=== PATIENT | male | born 1955 | race Hispanic/Latino ===

== ENCOUNTER 2017-04-13 10:20 | Day surgery (SDC) | payer OTHER ==
[2017-04-13] MEDS ORDERED: DiphenhydrAMINE 50 mg/ml Inj ONE (10:57)
[2017-04-13 10:59] VITALS: BMI 32.5
[2017-04-13] MEDS ORDERED: Midazolam 2 MG/2 ML VIAL ONE (11:56)
[2017-04-13] MEDS ORDERED: Iohexol 350mg/ml 100 ML ONE (11:57)
--- NOTE | 2017-04-13 12:39 | CARDCATH ---
PROCEDURE DATE: LEFT HEART CATHETERIZATION INDICATIONS: The patient is a 61 years old white male, who presented to [facility] with suicidal attempt and the patient was noted to have persistent anterolateral ischemic ST-T wave changes. The patient had no chest pain. Because of the overall medical and psychiatric condition, cardiac catheterization was recommended after psychiatry clearance. The patient was cleared by psychiatrist. The patient was transferred to [facility] for cardiac catheterization. The procedure and its risks were fully explained to the patient who understood and agreed for the procedure. PROCEDURE: Left and right coronary angiography was performed with 6-Mohawk JL4 and JR4 diagnostic catheters. Left ventriculogram and aortogram were performed with 6-Mohawk pigtail catheter. The patient tolerated the procedure well without any complications. ANGIOGRAPHIC FINDINGS: Selective injection of the left coronary artery revealed left main to be a normal vessel. Left main bifurcated into medium-sized LAD and medium-sized circumflex artery. Other than 50% stenosis of the first septal security installer,the rest of the left coronary circulation was angiographically unremarkable. Selective injection of right coronary artery revealed a large dominant vessel that was angiographically unremarkable. Left ventriculogram performed in the OWEN projection revealed normal wall motion, ejection fraction estimated at 55%. Aortography performed in the MAORI projection revealed mild dilated aortic root. There was no aortic insufficiency or dissection. CONCLUSION: 50% stenosis of the ostium of the first septal security installer, otherwise normal coronary circulation. Normal ejection fraction. RECOMMENDATIONS: No further cardiac workup is recommended; however, the patient should be maintained on aspirin and beta pam therapy as well as statin therapy. Juan Antonio Urbina MD
[2017-04-16 15:09] VITALS: RESP 15; O2SAT 97
== END 2017-04-13 16:18 | disposition short-term general hospital (02) ==
LOC: C.CATHLAB 10:20
PROVIDERS: ATTEND Specialist
DX: I25.9 Chronic ischemic heart disease, unspecified (principal); I35.0 Nonrheumatic aortic (valve) stenosis
CPT/HCPCS: J1200; J1644; J2250; J2930; Q9967

== ENCOUNTER 2018-05-03 03:01 | Inpatient (IN) | payer MEDICARE, BC ==
[2018-05-03 03:02] VITALS: BMI 28.5
--- NOTE | 2018-05-03 03:18 | C.PDOC ---
History Of Present Illness 62 year old male with PMHx of alcohol abuse presents to the ED for evaluation. Patient states he drinks 2-3 liters of vodka, his last drink was a couple of hours. Patient states he feels shaky. Patient hyperventilating and feeling an xious. Patient denies SI/HI, hallucinations, SOB, CP, nausea, vomit, injury, fall, trauma. Time Seen by Provider: 05/03/18 03:18 Chief Complaint (Nursing): Anxiety History Per: Patient History/Exam Limitations: intoxication Onset/Duration Of Symptoms: Days Current Symptoms Are (Timing): Still Present Suicide/Self Injury Attempted (Context): None Modifying Factor(s): Alcohol Associated Symptoms: Anxiety. denies: Depression, Suicidal Thoughts, Suicidal Plan Recent travel outside of the [place]: No Additional History Per: Patient Past Medical History Reviewed: Historical Data, Nursing Documentation, Vital Signs - Medical History PMH: Anxiety, CVA, Depression, Diabetes, HTN, Hypothyroidism, Pancreatitis, Chronic Kidney Disease (Non dialysis), Seizures Denies: Hepatitis, HIV, Sexually Transmitted Disease Surgical History: No Surg Hx - [facility] GROUP PSYCHOTHERAPY (07/20/17) INDIV PSYCHOTHERAPY FOR SUBSTANCE ABUSE, COGNITIV BEHAVIORAL (07/20/17) INDIVIDUAL PSYCHOTHERAPY, COGNITIVE-BEHAVIORAL (07/20/17) INTRODUCTION OF SERUM/TOX/VACCINE INTO MUSCLE, PERC APPROACH (04/10/17) MEASURE OF CARDIAC SAMPL & PRESSURE, L HEART, PERC APPROACH (04/10/17) MEDICATION MANAGEMENT (10/04/17) PLAIN RADIOGRAPHY OF RIGHT AND LEFT HEART USING OTH CONTRAST (04/10/17) Family History: States: Unknown Family Hx - Social History Hx Alcohol Use: No Hx Substance Use: No - Immunization History Hx Tetanus Toxoid Vaccination: Yes Hx Influenza Vaccination: Yes Hx Pneumococcal Vaccination: Yes Review Of Systems Constitutional: Negative for: Fever, Chills Cardiovascular: Negative for: Chest Pain, Palpitations Respiratory: Negative for: Shortness of Breath Gastrointestinal: Negative for: Nausea, Vomiting, Abdominal Pain Genitourinary: Negative for: Dysuria Musculoskeletal: Negative for: Back Pain Skin: Negative for: Lesions Psych: Positive for: Anxiety (extreme). Negative for: Depression, Suicidal ideation Physical Exam - Physical Exam Appears: Non-toxic, Other (anxious) Skin: Warm, Dry Head: Normacephalic Eye(s): bilateral: Normal Inspection Neck: Supple Chest: Symmetrical Cardiovascular: Rhythm Regular Respiratory: No Rales, No Rhonchi, No Wheezing Gastrointestinal/Abdominal: Soft, Tenderness (mild), No Guarding, No Rebound Extremity: Bilateral: Atraumatic, Normal Color And Temperature, Normal ROM Neurological/Psych: Oriented x3, Normal Speech, Normal Cognition Gait: Steady ED Course And Treatment - Laboratory Results Result Diagrams: 05/03/18 06:10 05/03/18 06:10 O2 Sat by Pulse Oximetry: 96 (ON RA) Pulse Ox Interpretation: Normal Progress Note: Plan: - Labs. - Librium 100 mg PO. - IV fluids. - Zofran 4 mg IVP. - UA. did r femoral stick in order to obtain bloods. Pt tolerated the procedure well Disposition Counseled Patient/Family Regarding: Studies Performed, Diagnosis - Disposition Disposition Time: 03:18 Condition: FAIR Forms: [facility] (Macanese) - Clinical Impression Clinical Impression: Anxiety, Alcohol abuse with intoxication - Scribe Statement The provider has reviewed the documentation as recorded by the Scribe Leonard Dennis All medical record entries made by the Scribe were at my direction and personally dictated by me. I have reviewed the chart and agree that the record accurately reflects my personal performance of the history, physical exam, medical decision making, and the department course for this patient. I have also personally directed, reviewed, and agree with the discharge instructions and disposition. Physician Patient Turnover Patient Signed Over To: Elisa Veliz Handoff Comments: pending labs , re-eval and dispo
[2018-05-03] MEDS ORDERED: Sodium Chloride 0.9% 1,000 ML IV ONE (03:21)
[2018-05-03] MEDS ORDERED: Sodium Chloride 0.9% 1,000 ML ONE (03:52)
[2018-05-03 06:13] LABS: BASO # 0.1 K/uL (0.0-0.2); BASO % 1.2 % (0.0-2.0); EOS % 0.1 % (0.0-4.0); HEMOGLOBIN 13.1 g/dL (12.0-18.0); LYMPH # 0.6 K/uL (1.0-4.3); LYMPH % 7.4 % (20.0-40.0); MEAN CELL VOLUME 105.8 fL (80.0-94.0); MEAN CORPUSCULAR HEMOGLOBIN 36.4 pg (27.0-31.0); MEAN CORPUSCULAR HGB CONC 34.4 g/dL (33.0-37.0); MEAN PLATELET VOLUME 7.1 fL (7.2-11.7); MONO # 0.7 K/uL (0.0-0.8); NEUT # 7.3 K/uL (1.8-7.0); NEUT % 83.3 % (50.0-75.0); PLATELET COUNT 397 K/uL (130-400); RBC 3.61 Mil/uL (4.40-5.90); RED CELL DISTRIBUTION WIDTH 14.5 % (11.5-14.5); WHITE BLOOD COUNT 8.8 K/uL (4.8-10.8)
[2018-05-03 06:35] LABS: ALB/GLOB RATIO 1.4 (1.0-2.1); ALBUMIN 4.5 g/dL (3.5-5.0); ALT/SGPT 33 U/L (21-72); AST/SGOT 103 U/L (17-59); BLOOD UREA NITROGEN 3 mg/dL (9-20); CALCIUM 8.6 mg/dl (8.6-10.4); GFR NON-AFRICAN AMERICAN > 60
[2018-05-03] MEDS ORDERED: Potassium Chloride 10 mEq ER Tab PO STA ×2 (06:36→09:34)
[2018-05-03] MEDS ORDERED: Magnesium Sulfate 1 gm in D5W 1 GM/100 ML BAG IVPB ONE ×2 (06:36→06:40)
[2018-05-03] MEDS ORDERED: Potassium Chloride 20 mEq ER Tab PO ONE (06:41)
[2018-05-03 06:53] LABS: BANDS 3 % (0-2); LYMPHOCYTE 5 % (20-40); MONOCYTE 10 % (0-10); NEUTROPHIL 82 % (50-75); PLATELET ESTIMATE NORMAL (NORMAL); TOTAL CELLS COUNTED 100
[2018-05-03 08:45] LABS: SQUAMOUS EPITHIAL < 1 /hpf (0-5); URINE BACTERIA RARE (<OCC); URINE BILIRUBIN NEGATIVE (NEGATIVE); URINE BLOOD NEGATIVE (NEGATIVE); URINE CLARITY Clear (Clear); URINE COLOR Yellow (YELLOW); URINE GLUCOSE (UA) NORMAL (Normal); URINE LEUKOCYTE ESTERASE NEG Leu/uL (Negative); URINE PROTEIN NEGATIVE (NEGATIVE)
[2018-05-03] MEDS ORDERED: Potassium Chloride 10 mEq ER Tab PO ONE (08:52)
[2018-05-03 09:17] LABS: BARBITURATES, UR NEGATIVE (NEGATIVE); OPIATES, UR NEGATIVE (NEGATIVE); PHENCYCLIDINE, UR NEGATIVE (NEGATIVE)
[2018-05-03 09:41] LABS: BENZODIAZEPINES, UR POSITIVE (NEGATIVE)
[2018-05-03] MEDS ORDERED: Potassium Chloride 20 mEq 100 ML ONE (09:45)
[2018-05-03] MEDS: Magnesium Sulfate 1 gm in D5W 1 GM/100 ML BAG IVPB SCH ×2 (15:06→16:18)
[2018-05-03] MEDS ORDERED: Oxycodone/Acetaminophen 5/325 mg Tab PO ONE (18:00)
[2018-05-03 19:47] LABS: HEMOGLOBIN 11.6 g/dL (12.0-18.0); MEAN CELL VOLUME 104.5 fL (80.0-94.0); MEAN CORPUSCULAR HEMOGLOBIN 35.6 pg (27.0-31.0); MEAN PLATELET VOLUME 6.7 fL (7.2-11.7); RBC 3.26 Mil/uL (4.40-5.90); RED CELL DISTRIBUTION WIDTH 14.7 % (11.5-14.5); WHITE BLOOD COUNT 6.8 K/uL (4.8-10.8)
[2018-05-03 20:08] LABS: BLOOD UREA NITROGEN 5 mg/dL (9-20); CALCIUM 7.9 mg/dl (8.6-10.4); GFR NON-AFRICAN AMERICAN > 60
--- NOTE | 2018-05-03 21:55 | CP.PCM.HP ---
Past Patient History - Infectious Disease Hx of Infectious Diseases: None - Past Medical History & Family History Past Medical History?: Yes - Past Social History Smoking Status: Never Smoked - CARDIAC Hx Cardiac Disorders: Yes Hx Hypertension: Yes - PULMONARY Hx Respiratory Disorders: No - NEUROLOGICAL Hx Neurological Disorder: Yes Hx Seizures: Yes - HEENT Hx HEENT Problems: No - RENAL Hx Chronic Kidney Disease: Yes (Non dialysis) - ENDOCRINE/METABOLIC Hx Endocrine Disorders: Yes Hx Hypothyroidism: Yes - HEMATOLOGICAL/ONCOLOGICAL Hx Blood Disorders: No Hx Human Immunodeficiency Virus (HIV): No - INTEGUMENTARY Hx Dermatological Problems: No - MUSCULOSKELETAL/RHEUMATOLOGICAL Hx Musculoskeletal Disorders: Yes Hx Degenerative Joint Disease: Yes Hx Falls: Yes - GASTROINTESTINAL Hx Gastrointestinal Disorders: Yes Hx Pancreatitis: Yes - GENITOURINARY/GYNECOLOGICAL Hx Genitourinary Disorders: No Hx Sexually Transmitted Disorders: No - PSYCHIATRIC Hx Psychophysiologic Disorder: Yes Hx Anxiety: Yes Hx Depression: Yes Hx Substance Use: Yes - SURGICAL HISTORY Hx Surgeries: Yes Hx Joint Replacement: Yes (Hip replacement x 3, knee replacement x 2) Hx Musculoskeletal Surgery: Yes Other/Comment: knee replacement x 2 - ANESTHESIA Hx Anesthesia: Yes Hx Anesthesia Reactions: No Hx Malignant Hyperthermia: No Meds Allergies/Adverse Reactions: Allergies Allergy/AdvReac Type Severity Reaction Status Date / Time iodine Allergy RASH Verified 05/03/18 03:19 Results - Vital Signs Recent Vital Signs: Last Vital Signs Temp 97.3 F L 05/03/18 15:33 Pulse 100 H 05/03/18 15:33 Resp 20 05/03/18 15:33 BP 161/80 H 05/03/18 15:33 Pulse Ox 97 05/03/18 15:33 - Labs Result Diagrams: 05/03/18 19:40 05/03/18 19:40 Labs: Laboratory Results - last 24 hr 05/03/18 05/03/18 05/03/18 06:10 06:10 08:38 WBC 8.8 RBC 3.61 L Hgb 13.1 Hct 38.2 MCV 105.8 H MCH 36.4 H MCHC 34.4 RDW 14.5 Plt Count 397 MPV 7.1 L Neut % (Auto) 83.3 H Lymph % (Auto) 7.4 L [place] % (Auto) 8.0 Eos % (Auto) 0.1 Baso % (Auto) 1.2 Neut # (Auto) 7.3 H Lymph # (Auto) 0.6 L [place] # (Auto) 0.7 Eos # (Auto) 0.0 Baso # (Auto) 0.1 Neutrophils % (Manual) 82 H Band Neutrophils % 3 H Lymphocytes % (Manual) 5 L Monocytes % (Manual) 10 Platelet Estimate Normal Sodium 136 Potassium 2.6 L Chloride 93 L Carbon Dioxide 14 L Anion Gap 32 H BUN 3 L Creatinine 0.9 Est GFR ( Amer) > 60 Est GFR (Non-Af Amer) > 60 Random Glucose 86 Calcium 8.6 Phosphorus 3.4 Magnesium 1.0 L* Total Bilirubin 1.2 AST 103 H D ALT 33 Alkaline Phosphatase 71 Total Protein 7.8 Albumin 4.5 Globulin 3.3 Albumin/Globulin Ratio 1.4 Urine Color Yellow Urine Clarity Clear Urine pH 5.0 Ur Specific [place] 1.018 Urine Protein Negative Urine Glucose (UA) Normal Urine Ketones 1+ H Urine Blood Negative Urine Nitrate Negative Urine Bilirubin Negative Urine Urobilinogen 2.0 Ur Leukocyte Esterase Neg Urine WBC (Auto) 2 Urine RBC (Auto) < 1 Ur Squamous Epith Cells < 1 Urine Bacteria Rare Urine Opiates Screen Urine Methadone Screen Ur Barbiturates Screen Ur Phencyclidine Scrn Ur Amphetamines Screen U Benzodiazepines Scrn U Oth Cocaine Metabols U Cannabinoids Screen Alcohol, Quantitative 117 H 05/03/18 05/03/18 05/03/18 08:38 19:40 19:40 WBC 6.8 RBC 3.26 L Hgb 11.6 L Hct 34.1 L MCV 104.5 H MCH 35.6 H MCHC 34.0 RDW 14.7 H Plt Count 315 MPV 6.7 L Neut % (Auto) Lymph % (Auto) [place] % (Auto) Eos % (Auto) Baso % (Auto) Neut # (Auto) Lymph # (Auto) [place] # (Auto) Eos # (Auto) Baso # (Auto) Neutrophils % (Manual) Band Neutrophils % Lymphocytes % (Manual) Monocytes % (Manual) Platelet Estimate Sodium 129 L Potassium 3.1 L Chloride 91 L Carbon Dioxide 26 Anion Gap 15 BUN 5 L Creatinine 0.8 Est GFR ( Amer) > 60 Est GFR (Non-Af Amer) > 60 Random Glucose 98 Calcium 7.9 L Phosphorus Magnesium 1.8 Total Bilirubin AST ALT Alkaline Phosphatase Total Protein Albumin Globulin Albumin/Globulin Ratio Urine Color Urine Clarity Urine pH Ur Specific [place] Urine Protein Urine Glucose (UA) Urine Ketones Urine Blood Urine Nitrate Urine Bilirubin Urine Urobilinogen Ur Leukocyte Esterase Urine WBC (Auto) Urine RBC (Auto) Ur Squamous Epith Cells Urine Bacteria Urine Opiates Screen Negative Urine Methadone Screen Negative Ur Barbiturates Screen Negative Ur Phencyclidine Scrn Negative Ur Amphetamines Screen Negative U Benzodiazepines Scrn Positive U Oth Cocaine Metabols Negative U Cannabinoids Screen Negative Alcohol, Quantitative
[2018-05-03] MEDS: Folic Acid 1 MG, Thiamine 100 MG, Multivitamin (MVI) 10 ML in Dextrose 5% In Water 1,00... IV SCH (22:54)
[2018-05-04] MEDS ORDERED: Oxycodone/Acetaminophen 5/325 mg Tab PO ONE (02:50)
--- NOTE | 2018-05-04 03:11 | HP ---
CHIEF COMPLAINT: Weakness, palpitations. HISTORY OF PRESENT ILLNESS: This is a 62-year-old white male who is alcoholic. He drinks daily. He drinks in the morning. He drinks all the times. As soon as he stops drinking, he starts having shakes. According to him, he drinks 2 to 3 liters of vodka everyday, and his last drink was 2 hours ago, and right after that, he started feeling shaky, hyperventilating, anxious, flushed, tiredness, anorexia, malaise and fatigue. He is anxious, he is restless, and he knows that intravenous Ativan will help him. He was found to be weak with low magnesium, low potassium. Treatment was started, and he was called in to admit the patient. When I saw the patient, the patient is extremely anxious, restless, he is nauseous. He is vomiting. He has epigastric discomfort, and he has right upper quadrant pain. He denies any polyuria, polydipsia, or polyphagia. He denies any hematuria or pyuria. He denies any sneezing, itchy eyes, itchy nose. He is flushed. He has frequent urination. He denied any dysuria. He is weak, dizzy, and rapid heart rate. The patient denies any back pain or hip pain. He denied any history of head injury, fall, loss of consciousness. PAST MEDICAL HISTORY: He has past medical history of seizure, but he has not had any recent seizure. SOCIAL HISTORY: He smokes, and he is alcoholic. CURRENT MEDICATIONS: At home, he is noncompliant, but he is supposed to be on Synthroid, Keppra, Norvasc, Ambien, Effexor, Ativan, folic acid. PHYSICAL EXAMINATION: GENERAL: This is an elderly male who is in distress with weakness, palpitation, and tachycardia. VITAL SIGNS: BP 150/87, pulse 135, respiratory rate 24, and temperature 98.5. SKIN: Flushed, poor turgor. HEENT: Atraumatic and normocephalic. Negative pallor. Negative jaundice. Extraocular movements are intact. NECK: Supple. No JVD. No lymph nodes. No thyromegaly. CHEST WALL: Bilateral symmetrical expansion. LUNGS: Bilaterally clear. No rales. No rhonchi. CARDIOVASCULAR SYSTEM: PMI in fifth intercostal space. S1 and S2 regular. Tachycardiac. ABDOMEN: Soft. Epigastric and right upper quadrant tenderness. No guarding. No rigidity. No rebound. Bowel sounds are exaggerated. RECTAL: Enlarged prostate. EXTREMITIES: No clubbing, cyanosis, or edema. CENTRAL NERVOUS SYSTEM: Awake, alert and oriented x3. he is restless and he has coarse tremor of all extremities. He has alcohol ____ odor. ASSESSMENT: 1. Alcohol withdrawal delirium tremens. 2. Dehydration. 3. Hypokalemia/hypomagnesemia. 4. Alcoholism. PLAN: Admit. Detailed orders are written. Patient has been seen and examined by me. Lion Castillo MD
[2018-05-04] MEDS: Levothyroxine 100 MCG TAB PO SCH (06:00)
[2018-05-04 07:32] LABS: BLOOD UREA NITROGEN 4 mg/dL (9-20); CALCIUM 7.9 mg/dl (8.6-10.4); GFR NON-AFRICAN AMERICAN > 60
[2018-05-04] MEDS ORDERED: Potassium Chloride 10 mEq ER Tab PO SCH (08:00)
[2018-05-04] MEDS: Folic Acid 1 MG, Thiamine 100 MG, Multivitamin (MVI) 10 ML in Dextrose 5% In Water 1,00... IV SCH ×2 (09:10→18:20)
[2018-05-04] MEDS: Venlafaxine 150 mg ER Cap PO SCH (09:47)
[2018-05-04] MEDS: Magnesium Oxide 400 mg Tab UD PO SCH (09:48)
[2018-05-04] MEDS: Multiple Vitamins Tab PO SCH (09:48)
[2018-05-04] MEDS ORDERED: Potassium Chloride 20 mEq ER Tab PO ONE (10:00)
--- NOTE | 2018-05-04 11:04 | PCM.PSYCH ---
Initial Psychiatric Evaluation - Initial Psychiatric Evaluation Type of Admission: Voluntary Legal Status: Capacity Current Medications: Active Medications Generic Name Dose Route Start Last Admin Trade Name Freq PRN Reason Stop Dose Admin Acetaminophen 650 mg 05/04/18 06:45 Tylenol 325mg Tab PO Q6 PRN Pain, Mild (1-3) Amlodipine Besylate 5 mg 05/04/18 10:00 05/04/18 09:48 Norvasc PO 5 mg DAILY XU Administration Folic Acid 1 mg 05/04/18 10:00 05/04/18 09:48 Folic Acid PO 1 mg DAILY XU Administration Folic Acid 1 mg/ Thiamine HCl 1,011.2 mls @ 100 mls/hr 05/03/18 22:00 05/04/18 09:10 100 mg/ Multivitamins/Vitamin IV Not Given C 10 ml/ Dextrose .Q10H7M [facility] Ibuprofen 600 mg 05/04/18 06:36 05/04/18 06:47 Motrin Tab PO 600 mg TID PRN Administration Pain, moderate (4-7) Influenza Virus Vaccine 60 mcg 05/05/18 14:00 Fluzone Quad [id number] IM 05/05/18 14:01 .ONCE ONE Levetiracetam 500 mg 05/03/18 13:00 05/04/18 09:47 Keppra PO 500 mg Q12 XU Administration Levothyroxine Sodium 100 mcg 05/04/18 06:30 05/04/18 06:00 Synthroid PO 100 mcg DAILY@0630 XU Administration Lorazepam 1 mg 05/03/18 13:17 05/03/18 13:42 Ativan PO 1 mg Q8 PRN Administration Anxiety Lorazepam 2 mg 05/03/18 13:10 05/04/18 06:03 Ativan IVP 2 mg Q4 PRN Administration SEVERE ANXIETY Magnesium Oxide 400 mg 05/04/18 10:00 05/04/18 09:48 Mag-Ox PO 05/06/18 10:01 400 mg DAILY XU Administration Multivitamins 1 tab 05/04/18 10:00 05/04/18 09:48 Hexavitamin PO 1 tab DAILY XU Administration Ondansetron HCl 4 mg 05/03/18 13:24 05/03/18 16:29 Zofran Inj IVP 4 mg Q6 PRN Administration naus Pantoprazole Sodium 40 mg 05/04/18 10:00 05/04/18 09:48 Protonix Inj IVP 40 mg DAILY XU Administration Potassium Chloride 20 meq 05/04/18 18:00 Potassium Chloride Oral Soln PO 05/06/18 18:01 DAILY XU Thiamine HCl 100 mg 05/04/18 10:00 05/04/18 09:48 Vitamin B1 Tab PO 100 mg DAILY XU Administration Venlafaxine HCl 150 mg 05/04/18 10:00 05/04/18 09:47 Effexor Xr PO 150 mg DAILY XU Administration Past Psychiatric History - Past Psychiatric History Previous Treatment History: None Pertinent Medical Hx (Current Medical&Sleep Prob, Allergies): Allergies Allergy/AdvReac Type Severity Reaction Status Date / Time iodine Allergy RASH Verified 05/03/18 03:19 Folic Acid 1 mg PO DAILY #30 tab 01/08/18 LORazepam [Ativan] 1 mg PO Q8 PRN 02/26/18 Levothyroxine [Synthroid] 100 mcg PO DAILY 02/26/18 Venlafaxine [Effexor XR] 150 mg PO DAILY 02/26/18 Zolpidem [Ambien] 10 mg PO HS 02/26/18 amLODIPine [Norvasc] 5 mg PO DAILY 02/26/18 levETIRAcetam [Keppra] 500 mg PO Q12 02/26/18 Review of Systems - Review of Systems All systems: reviewed and no additional remarkable complaints except - Psychiatric Psychiatric: Anxiety, Irritability. absent: Suicidal Ideation Mental Status Examination - Personal Presentation Personal Presentation: Looks stated age - Affect Affect: Constricted - Motor Activity Motor Activity: Calm - Reliability in Providing Information Reliability in Providing Information: Fair - Speech Speech: Organized - Mood Mood: Anxious - Formal Thought Process Formal Thought Process: No Impairment - Obsessions/Compulsions Obsessions: No Compulsions: No - Cognitive Functions Orientation: Person, Place, Situation, Time Sensorium: Alert Attention/Concentration: Attentive Abstract Thinking: [place] Estimate of Intelligence: Below average Judgement: Imparied, as evidence by: Poor judgement, Intact, as evidence by: Insight regarding need for hospitalization - Risk Risk: Withdrawal, Diminished functioning - Limitations Limitations: Living alone DSM 5 DX - DSM 5 DSM 5 Diagnosis: Alcohol use disorder severe Alcohol withdrawal - Recommended/Plan of Treatment Treatment Recommendations and Plan of Treatment: CBT Psychoeducation Supportive therapy Librium taper
[2018-05-04 17:00] LABS: BLOOD UREA NITROGEN 3 mg/dL (9-20); CALCIUM 8.3 mg/dl (8.6-10.4); GFR NON-AFRICAN AMERICAN > 60
[2018-05-04] MEDS: Potassium Chloride 20 mEq/15 ml LIQ UD PO SCH (17:30)
--- NOTE | 2018-05-04 21:23 | CP.PCM.PN ---
Subjective - Subjective Subjective: dictated Objective - Vital Signs/Intake and Output Vital Signs (last 24 hours): Temp Pulse Resp BP Pulse Ox 98.3 F 93 H 18 153/94 H 97 05/04/18 19:10 05/04/18 19:10 05/04/18 19:10 05/04/18 19:10 05/04/18 19:10 Intake and Output: 05/04/18 05/05/18 18:59 06:59 Intake Total 800 Balance 800 - Medications Medications: Current Medications Acetaminophen (Tylenol 325mg Tab) 650 mg PO Q6 PRN PRN Reason: Pain, Mild (1-3) Amlodipine Besylate (Norvasc) 5 mg PO DAILY [facility] Last Admin: 05/04/18 09:48 Dose: 5 mg Folic Acid (Folic Acid) 1 mg PO DAILY [facility] Last Admin: 05/04/18 09:48 Dose: 1 mg Folic Acid 1 mg/ Thiamine HCl 100 mg/ Multivitamins/Vitamin C 10 ml/ Dextrose 1,011.2 mls @ 100 mls/hr IV .Q10H7M [facility] Last Admin: 05/04/18 18:20 Dose: Not Given Ibuprofen (Motrin Tab) 600 mg PO TID PRN PRN Reason: Pain, moderate (4-7) Last Admin: 05/04/18 14:58 Dose: 600 mg Influenza Virus Vaccine (Fluzone Quad [id number]) 60 mcg IM .ONCE ONE Stop: 05/05/18 14:01 Levetiracetam (Keppra) 500 mg PO Q12 [facility] Last Admin: 05/04/18 09:47 Dose: 500 mg Levothyroxine Sodium (Synthroid) 100 mcg PO DAILY@0630 [facility] Last Admin: 05/04/18 06:00 Dose: 100 mcg Lorazepam (Ativan) 1 mg PO Q8 PRN PRN Reason: Anxiety Last Admin: 05/04/18 17:30 Dose: 1 mg Lorazepam (Ativan) 2 mg IVP Q4 PRN PRN Reason: SEVERE ANXIETY Last Admin: 05/04/18 17:58 Dose: 2 mg Magnesium Oxide (Mag-Ox) 400 mg PO DAILY [facility] Stop: 05/06/18 10:01 Last Admin: 05/04/18 09:48 Dose: 400 mg Multivitamins (Hexavitamin) 1 tab PO DAILY [facility] Last Admin: 05/04/18 09:48 Dose: 1 tab Ondansetron HCl (Zofran Inj) 4 mg IVP Q6 PRN PRN Reason: naus Last Admin: 05/04/18 17:59 Dose: 4 mg Pantoprazole Sodium (Protonix Inj) 40 mg IVP DAILY [facility] Last Admin: 05/04/18 09:48 Dose: 40 mg Potassium Chloride (Potassium Chloride Oral Soln) 20 meq PO DAILY [facility] Stop: 05/06/18 18:01 Last Admin: 05/04/18 17:30 Dose: 20 meq Thiamine HCl (Vitamin B1 Tab) 100 mg PO DAILY [facility] Last Admin: 05/04/18 09:48 Dose: 100 mg Venlafaxine HCl (Effexor Xr) 150 mg PO DAILY [facility] Last Admin: 05/04/18 09:47 Dose: 150 mg - Labs Labs: 05/03/18 19:40 05/04/18 16:41
[2018-05-05] MEDS: Folic Acid 1 MG, Thiamine 100 MG, Multivitamin (MVI) 10 ML in Dextrose 5% In Water 1,00... IV SCH ×2 (03:59→15:33)
[2018-05-05] MEDS ORDERED: DiphenhydrAMINE 12.5 mg/5 ml LIQ UD (5 ml) PO ONE (04:53)
[2018-05-05] MEDS: Levothyroxine 100 MCG TAB PO SCH (05:47)
--- NOTE | 2018-05-05 07:44 | PN ---
DATE: 05/05/2018BJECTIVE: This is a 62-year-old male, seen initially for GI consultation on 05/04/2018, reexamined again early today without reported significant clinical changes with period of mild anxiety and restless with upper extremity fine tremors on and off, less than before, with nausea, dyspepsia, but no vomiting and no reported active bleeding since admission. LABORATORY DATA: Most recent lab results showed today blood glucose level of 111. However, the patient still has persistently low sodium, low BUN and creatinine, and low calcium with low hemoglobin and hematocrit. PHYSICAL EXAMINATION: GENERAL: A 62-year-old male. VITAL SIGNS: Temperature of 99.4, heart rate 102, respiratory 20 to 22, blood pressure 132/84. HEENT: Showed pale dry oral mucoid membrane. Nonicteric sclerae. LUNGS: Few scattered crepitation. Decreased air entry at bases. HEART: Positive S1 and S2. ABDOMEN: Soft with mild generalized tenderness. No mass or organomegaly. No rebound tenderness or guarding. Midepigastric as well as midabdominal line and the left lower quadrant tenderness is positive. RECTAL: The patient refused. EXTREMITIES: Without significant clubbing, cyanosis or edema. NEUROLOGIC: No reported new neurological deficits, sensory or motor. IMPRESSION: 1. Alcoholism with alcohol withdrawal syndrome. 2. Multiple past medical history including but not limited to severe anxiety syndrome, hypertension, diabetes mellitus with hypothyroidism 3. Known history of pancreatitis with renal insufficiency. 4. Alcohol-induced seizure disorder, by history. 5. On record, the patient was seen and evaluated by the psychiatry cisco consultant. SUGGESTIONS: 1. Agree with your plan. 2. Abdominal ultrasound with attention to the biliary tree and pancreas. 3. PT and PTT. 4. Serum lipase and amylase level which was not ordered. 5. Guaiac all the stools everyday x3 due to the patient's anemia. 6. If the patient's symptoms continue, then endoscopic evaluation of the GI tract to be kept in mind. 7 . Cancer markers. 8. Correct any underlying electrolyte imbalance due to the patient's hyponatremia, hypomagnesemia. Further recommendation to follow. Elmo Sorensen MD [facility] # [id number]
[2018-05-05] MEDS: Multiple Vitamins Tab PO SCH (11:07)
[2018-05-05] MEDS: Potassium Chloride 20 mEq/15 ml LIQ UD PO SCH (11:07)
[2018-05-05] MEDS: Magnesium Oxide 400 mg Tab UD PO SCH (11:07)
[2018-05-05] MEDS: Venlafaxine 150 mg ER Cap PO SCH (11:08)
--- NOTE | 2018-05-05 12:40 | US ---
Date of service: 05/05/2018 HISTORY: ABDOMINAL PAIN / ALC. LIVER DISEASE COMPARISON: None. TECHNIQUE: Grayscale imaging was performed. FINDINGS: LIVER: Measures 16.9 cm. There is diffuse increased echogenicity of the liver parenchyma. No mass. No intrahepatic bile duct dilatation. GALLBLADDER: There are no gallstones, wall thickening or pericholecystic fluid. The sonographic Pruitt's sign is negative. COMMON BILE DUCT: Measures 4.8 mm. No stones. No dilatation. PANCREAS: Obscured by bowel gas. RIGHT KIDNEY: Measures 11.0cm. Normal echogenicity. No calculus, mass, or hydronephrosis. LEFT KIDNEY: Measures 11.7cm. Normal echogenicity. No calculus, mass, or hydronephrosis. SPLEEN: Normal in size and contour. No mass. AORTA: Obscured by bowel gas. IVC: Obscured by bowel gas. OTHER FINDINGS: None. IMPRESSION: Mild hepatomegaly. Fatty liver. No cholelithiasis or biliary dilatation.
[2018-05-05] MEDS ORDERED: Influenza Vaccine 60 MCG/0.5 ML SYR (3 yr & up) IM ONE (14:00)
[2018-05-05 16:39] LABS: BASO # 0.1 K/uL (0.0-0.2); BASO % 1.3 % (0.0-2.0); EOS % 0.8 % (0.0-4.0); HEMOGLOBIN 12.1 g/dL (12.0-18.0); LYMPH # 0.8 K/uL (1.0-4.3); LYMPH % 15.7 % (20.0-40.0); MEAN CELL VOLUME 103.3 fL (80.0-94.0); MEAN CORPUSCULAR HEMOGLOBIN 35.8 pg (27.0-31.0); MEAN CORPUSCULAR HGB CONC 34.7 g/dL (33.0-37.0); MEAN PLATELET VOLUME 6.8 fL (7.2-11.7); MONO # 0.4 K/uL (0.0-0.8); MONO % 8.4 % (0.0-10.0); NEUT # 3.7 K/uL (1.8-7.0); NEUT % 73.8 % (50.0-75.0); NRBC % 0.1 % (0.0-2.0); RBC 3.39 Mil/uL (4.40-5.90); RED CELL DISTRIBUTION WIDTH 14.2 % (11.5-14.5)
[2018-05-05 16:49] LABS: PROTHROMBIN TIME 11.2 SECONDS (9.7-12.2)
[2018-05-05 17:01] LABS: ALB/GLOB RATIO 1.2 (1.0-2.1); ALBUMIN 3.7 g/dL (3.5-5.0); ALT/SGPT 30 U/L (21-72); AST/SGOT 54 U/L (17-59); BLOOD UREA NITROGEN 4 mg/dL (9-20); CALCIUM 8.3 mg/dl (8.6-10.4); GFR NON-AFRICAN AMERICAN > 60
[2018-05-05 17:20] LABS: AMYLASE < 30 U/L (30-110); LIPASE 98 U/L (23-300)
[2018-05-05] MEDS: Oxycodone/Acetaminophen 5/325 mg Tab PO PRN (19:02)
[2018-05-06] MEDS: Folic Acid 1 MG, Thiamine 100 MG, Multivitamin (MVI) 10 ML in Dextrose 5% In Water 1,00... IV SCH (00:35)
--- NOTE | 2018-05-06 01:21 | PN ---
DATE: 05/05/2018 SUBJECTIVE: The patient is complaining of right upper quadrant pain and nausea. No vomiting. No fever. No chills. He is calm. He is quiet. PHYSICAL EXAMINATION: VITAL SIGNS: Blood pressure 142/82, pulse 92, respiratory rate 20, and temperature 98.5. LUNGS: Clear. CARDIOVASCULAR SYSTEM: S1 and S2 are regular. ABDOMEN: Soft. Right upper quadrant tenderness. ASSESSMENT: 1. Right upper quadrant pain, gastritis, rule out peptic ulcer disease. Plan gastroenterology consult. Continue intravenous Pepcid. 2. Alcohol withdrawal, delirium, tremor. 3. Hypokalemia. 4. Dehydration, hyponatremia. PLAN: Continue to monitor the patient. Labs reviewed. Electrolytes corrected. Lion Castillo MD
--- NOTE | 2018-05-06 01:36 | PN ---
DATE: 05/05/2018 SUBJECTIVE: The patient is improving. The patient is on intravenous Ativan requiring every four hours. He is anxious, tachycardic. PHYSICAL EXAMINATION: VITAL SIGNS: Blood pressure 153/94, pulse 93, respiratory rate 15, temperature 98.3. LUNGS: Clear. CARDIOVASCULAR SYSTEM: S1, S2 regular. ABDOMEN: Soft. ASSESSMENT: 1. Alcohol withdrawal, delirium tremor. 2. Alcoholism. 3. Electrolyte imbalance. 4. Hypertension. PLAN: The patient is stable for possible transfer to detox program on each patient. Lion Castillo MD
[2018-05-06] MEDS: Oxycodone/Acetaminophen 5/325 mg Tab PO PRN ×3 (03:45→17:30)
[2018-05-06] MEDS: Levothyroxine 100 MCG TAB PO SCH (06:06)
--- NOTE | 2018-05-06 08:05 | CON ---
DATE: 05/04/2018 That is from Elmo Sorensen MD, to Lion Castillo MD. I was called for GI consultation by the admitting MD. The patient is seen and fully examined for GI consultation on 05/04/2018. The entire chart is reviewed including but not limited to the most recent lab and radiology study results, current and the previous medication list, current and the previous medical events, allergy to medication list as well as all the available current and the previous medical record. Case discussed at length with the staff at the time of my GI consultation on 05/04/2018. HISTORY OF PRESENT ILLNESS: This is a 62-year-old male with known history of alcoholism, alcoholic abuse who was admitted to the hospital through the emergency room after drinking about 2 to 3 liters of vodka few hours prior to his admission with a main complaint of tremors, generalized weakness, and malaise with some shortness of breath, anxiety episodes, and restless with persistent dyspepsia, but no actual chest pain, significant shortness of breath, or active GI bleeding at the time of his admission. PAST MEDICAL HISTORY: Including mainly but not limited to, 1. Alcoholism. 2. Peptic ulcer disease. 3. Severe anxiety syndrome. 4. Hypertension with hypothyroidism. 5. Diabetes mellitus. 6. Recurrent episodes of alcoholic pancreatitis. 7. Reported seizure disorder, most likely related to his alcoholism. 8. Chronic renal insufficiency. FAMILY HISTORY: Unknown. SOCIAL HISTORY: Positive for excessive alcohol intake. Occasional cigarettes smoking as per his statement. ALLERGIES TO MEDICATIONS: UNCLEAR. CURRENT MEDICATIONS: Post admission medication lists were reviewed. LABORATORY DATA: Initial blood workup at the time of the admission showed normal CBC, but potassium was 2.6, CO2 content 14 indicative of metabolic acidosis, BUN 3. PHYSICAL EXAMINATION: GENERAL: A 62-year-old male who; appears to be somewhat awake, alert, complaining of upper extremities mild fine tremors bilaterally. VITAL SIGNS: Heart rate of 102, blood pressure of 164/100, respiratory rate 18 to 20, afebrile. HEENT: Showed dry oral mucoid membrane. Nonicteric sclerae. LYMPH NODES: No lymphadenitis or lymphadenopathy. LUNGS: Few scattered crepitation. Decreased air entry at bases. HEART: Positive S1 and S2 with increased rate. ABDOMEN: Soft with generalized tenderness with mild distention. Bowel sounds are hypoactive. No mass or organomegaly. No rebound tenderness or guarding. RECTAL: The patient refused. EXTREMITIES: With mild lower extremity edematous changes. No clubbing or cyanosis. Bilateral upper extremities, occasional fine tremors were noted. NEUROLOGIC: No reported new neurological deficits, sensory or motor. No reported new focal deficits. IMPRESSION: 1. Alcoholism with alcoholic liver disease. 2. To rule out recurrent acute on top of chronic pancreatitis. 3. Severe metabolic acidosis secondary to above most likely. 4. Re-exacerbation of peptic ulcer disease, to rule out gastric versus duodenal ulcer. 5. Rule out occult gastrointestinal malignancy. 6. Multiple past medical history as mentioned above. 7. Electrolyte imbalance with hypokalemia, hypocalcemia. SUGGESTIONS: 1. Agree with your plan. 2. Psychiatric evaluation due to the patient's chronic alcoholism. 3. Cancer markers including CEA, alpha-fetoprotein, and CA 19-9. 4. Serum lipase, amylase level. 5. Abdominal ultrasound. 6. Guaiac all the stools daily x3. 7. The patient will need endoscopic evaluation of the GI tract when he is more stable clinically, keeping in mind his age group, never had upper or lower endoscopy before as per his statement. 8. Further evaluation and recommendation to follow. Thank you for letting me participate in your patient's case management. Elmo Sorensen MD
--- NOTE | 2018-05-06 08:21 | CARD ---
APPROVED REPORT Date of service: 05/03/2018 EKG Measurement Heart [id number] [place] [id number] <Conclusion> Sinus tachycardia Low voltage QRS Inferior infarct, age undetermined Cannot rule out Anterior infarct, age undetermined Abnormal ECG
[2018-05-06] MEDS: Magnesium Oxide 400 mg Tab UD PO SCH (10:40)
[2018-05-06] MEDS: Multiple Vitamins Tab PO SCH (10:41)
[2018-05-06] MEDS: Venlafaxine 150 mg ER Cap PO SCH (10:42)
[2018-05-06] MEDS: Potassium Chloride 20 mEq/15 ml LIQ UD PO SCH (10:47)
--- NOTE | 2018-05-06 11:33 | PN ---
DATE: 05/06/2018 LOCATION: 659, bed A. SUBJECTIVE: This 62-year-old male seen and examined in rounds without significant clinical changes or reported active bleeding, but with reported drop of hemoglobin and hematocrit recently with less tremors and no reported abdominal pain. Most recent lab result, however, as per records showed hemoglobin of 12.1, hematocrit 35 with normal white blood cells and platelet count. Sodium 125 and calcium 8.3. Abdominal ultrasound report is seen. The patient has normal lipase and amylase level as well as normal CEA, alpha-fetoprotein, and CA 19-9 antigen. PHYSICAL EXAMINATION: GENERAL: A 62-year-old male, somewhat awake, alert. VITAL SIGNS: Afebrile with pulse of 82, respiratory rate 20 to 22, blood pressure 140/88. HEENT: Showed pale dry oral mucoid membrane. Nonicteric sclera. LUNGS: Few scattered mild crepitation. Decreased air entry at bases. HEART: Positive S1 and S2. ABDOMEN: Soft with mild generalized tenderness. No mass or organomegaly. No rebound tenderness or guarding. EXTREMITIES: Without significant clubbing, cyanosis or edema. NEUROLOGIC: No reported new neurological deficits, sensory or motor. No reported new focal deficits. IMPRESSION: 1. Alcoholism. 2. Alcoholic withdrawal syndrome. 3. Anemia with subsequent drop of hemoglobin and hematocrit. The possibility of gastrointestinal blood loss was raised. 4. Known history of recurrent alcohol-induced pancreatitis, renal insufficiency, as well as severe anxiety syndrome. 5. Poorly-controlled diabetes mellitus. 6. Known history of hypertension with hypothyroidism. SUGGESTIONS: 1. Agree with your plan. 2. The patient will need folic acid p.o. 3. Thiamine p.o. 4. Psychiatric reevaluation. 5. Endoscopic evaluation of the GI tract when the patient is more stable clinically. 6. We will follow up closely with you. Elmo Sorensen MD
--- NOTE | 2018-05-06 22:55 | CP.PCM.PN ---
Subjective - Subjective Subjective: dictated Objective - Vital Signs/Intake and Output Vital Signs (last 24 hours): Temp Pulse Resp BP Pulse Ox 97.9 F 89 20 150/87 94 L 05/06/18 15:00 05/06/18 17:00 05/06/18 15:00 05/06/18 15:00 05/06/18 15:00 - Medications Medications: Current Medications Acetaminophen (Tylenol 325mg Tab) 650 mg PO Q6 PRN PRN Reason: Pain, Mild (1-3) Amlodipine Besylate (Norvasc) 5 mg PO DAILY [facility] Last Admin: 05/06/18 10:42 Dose: 5 mg Clonidine HCl (Catapres) 0.1 mg PO Q4H PRN PRN Reason: Symptoms of alcohol withdrawl Last Admin: 05/05/18 01:35 Dose: 0.1 mg Folic Acid (Folic Acid) 1 mg PO DAILY [facility] Last Admin: 05/06/18 10:41 Dose: 1 mg Ibuprofen (Motrin Tab) 600 mg PO TID PRN PRN Reason: Pain, moderate (4-7) Last Admin: 05/06/18 20:32 Dose: 600 mg Levetiracetam (Keppra) 500 mg PO Q12 [facility] Last Admin: 05/06/18 21:58 Dose: 500 mg Levothyroxine Sodium (Synthroid) 100 mcg PO DAILY@0630 [facility] Last Admin: 05/06/18 06:06 Dose: 100 mcg Lorazepam (Ativan) 2 mg IVP Q4 PRN PRN Reason: SEVERE ANXIETY Last Admin: 05/04/18 22:08 Dose: 2 mg Lorazepam (Ativan) 1 mg PO Q6 [facility]; Taper Stop: 05/10/18 00:59 Last Admin: 05/06/18 17:30 Dose: 1 mg Multivitamins (Hexavitamin) 1 tab PO DAILY [facility] Last Admin: 05/06/18 10:41 Dose: 1 tab Ondansetron HCl (Zofran Inj) 4 mg IVP Q6 PRN PRN Reason: naus Last Admin: 05/04/18 17:59 Dose: 4 mg Oxycodone/Acetaminophen (Percocet 5/325 Mg Tab) 1 tab PO Q6H PRN PRN Reason: Pain, moderate (4-7) Stop: 01/02/19 18:49 Last Admin: 05/06/18 17:30 Dose: 1 tab Pantoprazole Sodium (Protonix Inj) 40 mg IVP DAILY [facility] Last Admin: 05/06/18 10:41 Dose: 40 mg Thiamine HCl (Vitamin B1 Tab) 100 mg PO DAILY [facility] Last Admin: 05/06/18 10:41 Dose: 100 mg Trazodone HCl (Desyrel) 50 mg PO HS PRN PRN Reason: Insomnia Venlafaxine HCl (Effexor Xr) 150 mg PO DAILY [facility] Last Admin: 05/06/18 10:42 Dose: 150 mg - Labs Labs: 05/05/18 16:35 05/05/18 16:35 PT 11.2 SECONDS (9.7-12.2) 05/05/18 16:35 INR 1.0 05/05/18 16:35 APTT 26 SECONDS (21-34) 05/05/18 16:35
[2018-05-07] MEDS: Oxycodone/Acetaminophen 5/325 mg Tab PO PRN ×3 (03:48→20:40)
[2018-05-07] MEDS: Levothyroxine 100 MCG TAB PO SCH (06:19)
[2018-05-07] MEDS: Multiple Vitamins Tab PO SCH (09:48)
[2018-05-07] MEDS: Venlafaxine 150 mg ER Cap PO SCH (10:15)
[2018-05-07 11:41] LABS: BASO # 0.1 K/uL (0.0-0.2); BASO % 1.3 % (0.0-2.0); EOS # 0.1 K/uL (0.0-0.7); EOS % 2.6 % (0.0-4.0); HEMOGLOBIN 11.9 g/dL (12.0-18.0); LYMPH # 0.8 K/uL (1.0-4.3); LYMPH % 15.6 % (20.0-40.0); MEAN CORPUSCULAR HEMOGLOBIN 36.5 pg (27.0-31.0); MEAN CORPUSCULAR HGB CONC 34.5 g/dL (33.0-37.0); MEAN PLATELET VOLUME 7.1 fL (7.2-11.7); MONO # 0.5 K/uL (0.0-0.8); MONO % 9.5 % (0.0-10.0); NEUT # 3.6 K/uL (1.8-7.0); RBC 3.27 Mil/uL (4.40-5.90); WHITE BLOOD COUNT 5.1 K/uL (4.8-10.8)
[2018-05-07 11:44] LABS: MEAN CELL VOLUME 105.8 fL (80.0-94.0)
[2018-05-07 11:49] LABS: INR 1.1; PROTHROMBIN TIME 11.7 SECONDS (9.7-12.2)
[2018-05-07 12:12] LABS: ALB/GLOB RATIO 1.1 (1.0-2.1); ALBUMIN 3.4 g/dL (3.5-5.0); ALT/SGPT 27 U/L (21-72); AST/SGOT 35 U/L (17-59); BLOOD UREA NITROGEN 6 mg/dL (9-20); CALCIUM 8.5 mg/dl (8.6-10.4); GFR NON-AFRICAN AMERICAN > 60
--- NOTE | 2018-05-07 13:39 | PN ---
DATE: 05/07/2018 LOCATION: 659 bed A. SUBJECTIVE: This is a 62-year-old male seen and examined in rounds without significant clinical changes, but with mild generalized abdominal pain as reported. No lower extremities fine tremors and no reported active bleeding, however, the patient reported to have very low hemoglobin and hematocrit with low sodium and low calcium as well as low magnesium. Today's lab results still pending. PHYSICAL EXAMINATION: GENERAL: A 62-year-old male, seen in rounds. VITAL SIGNS: Afebrile with pulse of 94, respiratory rate 20 to 22, blood pressure 144/90. HEENT: Showed pale dry oral mucous membranes. Anicteric sclerae. LUNGS: Few scattered crepitation. Decreased air entry at bases. HEART: Positive S1 and S2. ABDOMEN: Soft with mild generalized tenderness, but mainly in the midepigastric and mid abdominal line. No mass or organomegaly. No rebound tenderness or guarding. EXTREMITIES: Right lower extremity edematous changes. No clubbing or cyanosis. NEUROLOGIC: No reported new neurological deficits, sensory or motor. IMPRESSION: 1. Alcoholism. 2. Alcoholic withdrawal syndrome with delirium tremens, improving gradually. 3. Recent history of anemia. 4. Abnormal ultrasound of the abdomen with mild hepatomegaly. 5. Known history of hypertension. 6. Electrolyte imbalance with hyponatremia, hypocalcemia. SUGGESTIONS: 1. Agree with your plan. 2. The patient is rescheduled for upper endoscopy in the morning if stable clinically. Further recommendation to follow post endoscopy. 3. Correct any underlying electrolyte imbalance. Elmo Sorensen MD
[2018-05-07] MEDS ORDERED: Potassium Chloride 20 mEq ER Tab PO ONE (13:45)
--- NOTE | 2018-05-07 23:24 | CP.PCM.PN ---
Subjective - Subjective Subjective: dictated Objective - Vital Signs/Intake and Output Vital Signs (last 24 hours): Temp Pulse Resp BP Pulse Ox 98.1 F 83 20 129/77 95 05/07/18 15:13 05/07/18 16:00 05/07/18 15:13 05/07/18 15:13 05/07/18 15:13 - Medications Medications: Current Medications Acetaminophen (Tylenol 325mg Tab) 650 mg PO Q6 PRN PRN Reason: Pain, Mild (1-3) Amlodipine Besylate (Norvasc) 5 mg PO DAILY [facility] Last Admin: 05/07/18 09:48 Dose: 5 mg Clonidine HCl (Catapres) 0.1 mg PO Q4H PRN PRN Reason: Symptoms of alcohol withdrawl Last Admin: 05/05/18 01:35 Dose: 0.1 mg Folic Acid (Folic Acid) 1 mg PO DAILY [facility] Last Admin: 05/07/18 09:48 Dose: 1 mg Ibuprofen (Motrin Tab) 600 mg PO TID PRN PRN Reason: Pain, moderate (4-7) Last Admin: 05/06/18 20:32 Dose: 600 mg Levetiracetam (Keppra) 500 mg PO Q12 [facility] Last Admin: 05/07/18 21:06 Dose: 500 mg Levothyroxine Sodium (Synthroid) 100 mcg PO DAILY@0630 [facility] Last Admin: 05/07/18 06:19 Dose: 100 mcg Lorazepam (Ativan) 2 mg IVP Q4 PRN PRN Reason: SEVERE ANXIETY Last Admin: 05/04/18 22:08 Dose: 2 mg Lorazepam (Ativan) 1 mg PO Q6 [facility]; Taper Stop: 05/10/18 00:59 Last Admin: 05/07/18 17:51 Dose: 1 mg Multivitamins (Hexavitamin) 1 tab PO DAILY [facility] Last Admin: 05/07/18 09:48 Dose: 1 tab Ondansetron HCl (Zofran Inj) 4 mg IVP Q6 PRN PRN Reason: naus Last Admin: 05/04/18 17:59 Dose: 4 mg Oxycodone/Acetaminophen (Percocet 5/325 Mg Tab) 1 tab PO Q6H PRN PRN Reason: Pain, moderate (4-7) Stop: 05/08/18 18:49 Last Admin: 05/07/18 20:40 Dose: 1 tab Pantoprazole Sodium (Protonix Inj) 40 mg IVP DAILY [facility] Last Admin: 05/07/18 09:49 Dose: 40 mg Thiamine HCl (Vitamin B1 Tab) 100 mg PO DAILY [facility] Last Admin: 05/07/18 09:48 Dose: 100 mg Trazodone HCl (Desyrel) 50 mg PO HS PRN PRN Reason: Insomnia Last Admin: 05/06/18 23:05 Dose: 50 mg Venlafaxine HCl (Effexor Xr) 150 mg PO DAILY [facility] Last Admin: 05/07/18 10:15 Dose: 150 mg - Labs Labs: 05/07/18 11:32 05/07/18 11:32 PT 11.7 SECONDS (9.7-12.2) 05/07/18 11:32 INR 1.1 05/07/18 11:32 APTT 27 SECONDS (21-34) 05/07/18 11:32
[2018-05-07] MEDS ORDERED: Multivitamin (MVI) 10 ML, Thiamine 100 MG, Folic Acid 1 MG in Sodium Chloride 0.9% 1,00... IV ONE (23:48)
--- NOTE | 2018-05-08 02:34 | PN ---
DATE: 05/07/2018 SUBJECTIVE: Carter Riley was seen by GI. He has right upper quadrant pain. No fever, nausea, or vomiting. PHYSICAL EXAMINATION: VITAL SIGNS: Blood pressure 158/85, pulse 87, respiratory rate 20, temperature 97.6. LUNGS: Clear. CARDIOVASCULAR SYSTEM: S1 and S2 are regular. ABDOMEN: Right upper quadrant tenderness. ASSESSMENT: 1. Upper abdominal pain, gastritis. Rule out peptic ulcer disease. Gastroenterology evaluation. 2. Alcoholism with alcohol-induced delirium tremens. 3. Dehydration, hyponatremia. PLAN: GI eval. IV fluids. Lion Castillo MD
[2018-05-08] MEDS: Oxycodone/Acetaminophen 5/325 mg Tab PO PRN ×3 (02:39→18:08)
--- NOTE | 2018-05-08 03:34 | PN ---
DATE: 05/07/2018 SUBJECTIVE: The patient is for possible EGD tomorrow morning. He still has right upper quadrant pain. PHYSICAL EXAMINATION: VITAL SIGNS: BP 129/77, pulse 88, respiratory rate 20, temperature 98.1. LUNGS: Clear. CARDIOVASCULAR SYSTEM: S1 and S2 are regular. ABDOMEN: Right upper quadrant tenderness. ASSESSMENT: 1. Gastritis, rule out peptic ulcer disease. 2. Dehydration, hyponatremia. 3. Alcoholism with alcohol-induced delirium tremens. PLAN: Continue to monitor the patient. Lion Castillo MD
[2018-05-08] MEDS: Levothyroxine 100 MCG TAB PO SCH (06:02)
[2018-05-08] MEDS ORDERED: Midazolam 2 MG/2 ML VIAL ONE (07:48)
[2018-05-08] MEDS ORDERED: Propofol 10 mg/ml Inj (20 ML) ONE (07:48)
[2018-05-08] MEDS: Multiple Vitamins Tab PO SCH (09:55)
[2018-05-08] MEDS: Venlafaxine 150 mg ER Cap PO SCH (09:56)
[2018-05-08] MEDS: Magnesium Citrate Oral SOL (300 ml) PO SCH ×3 (15:00→17:10)
[2018-05-08] MEDS ORDERED: Bisacodyl 5mg EC Tab PO ONE (17:00)
--- NOTE | 2018-05-08 23:04 | CP.PCM.PN ---
Subjective - Subjective Subjective: dictated Objective - Vital Signs/Intake and Output Vital Signs (last 24 hours): Temp Pulse Resp BP Pulse Ox 97.6 F 75 18 131/85 95 05/08/18 15:44 05/08/18 17:00 05/08/18 15:44 05/08/18 15:44 05/08/18 15:44 Intake and Output: 05/08/18 05/09/18 18:59 06:59 Intake Total 400 620 Output Total 300 450 Balance 100 170 - Medications Medications: Current Medications Acetaminophen (Tylenol 325mg Tab) 650 mg PO Q6 PRN PRN Reason: Pain, Mild (1-3) Last Admin: 05/08/18 00:05 Dose: 650 mg Clonidine HCl (Catapres) 0.1 mg PO Q4H PRN PRN Reason: Symptoms of alcohol withdrawl Last Admin: 05/05/18 01:35 Dose: 0.1 mg Folic Acid (Folic Acid) 1 mg PO DAILY [facility] Last Admin: 05/08/18 09:55 Dose: 1 mg Ibuprofen (Motrin Tab) 600 mg PO TID PRN PRN Reason: Pain, moderate (4-7) Last Admin: 05/06/18 20:32 Dose: 600 mg Levetiracetam (Keppra) 500 mg PO Q12 [facility] Last Admin: 05/08/18 22:00 Dose: 500 mg Levothyroxine Sodium (Synthroid) 100 mcg PO DAILY@0630 [facility] Last Admin: 05/08/18 06:02 Dose: 100 mcg Lorazepam (Ativan) 1 mg PO Q8 [facility]; Taper Stop: 05/10/18 00:59 Last Admin: 05/08/18 22:00 Dose: 1 mg Lorazepam (Ativan) 1 mg IVP Q4 PRN PRN Reason: SEVERE ANXIETY Last Admin: 05/08/18 04:21 Dose: 1 mg Metoclopramide HCl (Reglan) 5 mg IVP Q6 [facility] Stop: 05/10/18 12:01 Last Admin: 05/08/18 18:10 Dose: 5 mg Multivitamins (Hexavitamin) 1 tab PO DAILY [facility] Last Admin: 05/08/18 09:55 Dose: 1 tab Ondansetron HCl (Zofran Inj) 4 mg IVP Q6 PRN PRN Reason: naus Last Admin: 05/04/18 17:59 Dose: 4 mg Oxycodone/Acetaminophen (Percocet 5/325 Mg Tab) 1 tab PO Q6H PRN PRN Reason: Pain, severe (8-10) Stop: 05/11/18 23:03 Pantoprazole Sodium (Protonix Ec Tab) 40 mg PO DAILY [facility] Thiamine HCl (Vitamin B1 Tab) 100 mg PO DAILY [facility] Last Admin: 05/08/18 09:56 Dose: 100 mg Trazodone HCl (Desyrel) 50 mg PO HS PRN PRN Reason: Insomnia Last Admin: 05/08/18 04:47 Dose: 50 mg Venlafaxine HCl (Effexor Xr) 150 mg PO DAILY [facility] Last Admin: 05/08/18 09:56 Dose: 150 mg - Labs Labs: 05/07/18 11:32 05/07/18 11:32 PT 11.7 SECONDS (9.7-12.2) 05/07/18 11:32 INR 1.1 05/07/18 11:32 APTT 27 SECONDS (21-34) 05/07/18 11:32
--- NOTE | 2018-05-09 01:35 | PN ---
DATE: 05/08/2018 SUBJECTIVE: complaining of headache. No fever. No chills. No nausea or vomiting. PHYSICAL EXAMINATION: VITAL SIGNS: Blood pressure 131/85, pulse 70, respiratory rate 18, and temperature 99.6. LUNGS: Clear. CARDIOVASCULAR SYSTEM: S1 and S2 are regular. ABDOMEN: Soft. ASSESSMENT: 1. Headache, most likely due to alcohol withdrawal. 2. Alcohol withdrawal delirium tremens. 3. Alcohol abuse. PLAN: Monitor the patient. The patient is possible transfer tomorrow morning to psych floor or discharge. Lion Castillo MD
[2018-05-09] MEDS: Oxycodone/Acetaminophen 5/325 mg Tab PO PRN ×2 (02:33→13:52)
[2018-05-09] MEDS: Levothyroxine 100 MCG TAB PO SCH (05:44)
[2018-05-09 07:27] LABS: BLOOD UREA NITROGEN 6 mg/dL (9-20); CALCIUM 8.6 mg/dl (8.6-10.4); GFR NON-AFRICAN AMERICAN > 60
[2018-05-09] MEDS: Multiple Vitamins Tab PO SCH ×2 (10:08→13:50)
[2018-05-09] MEDS: Venlafaxine 150 mg ER Cap PO SCH ×2 (10:08→13:51)
[2018-05-09] MEDS: Pantoprazole 40 mg EC Tab PO SCH ×2 (10:23→13:51)
[2018-05-09] MEDS ORDERED: Propofol 10 mg/ml Inj (20 ML) ONE (12:15)
[2018-05-09] MEDS ORDERED: Midazolam 2 MG/2 ML VIAL ONE (12:24)
[2018-05-09 13:30] VITALS: TEMP 97.3
[2018-05-09 16:06] VITALS: BP 113/65; PULSE 100; RESP 20; O2SAT 99
--- NOTE | 2018-05-09 23:09 | CP.PCM.DIS ---
Provider - Provider Date of Admission: 05/03/18 09:43 Attending physician: Lion Castillo MD Consults: 05/03/18 12:46 Psychiatry Consult Routine Comment: Consulting Provider: Herve Goldman Consulting Physician: Herve Goldman Reason for Consult: alcohol 05/04/18 19:22 Gastroenterology Consult ONCE Comment: Consulting Provider: Elmo Moreno Consulting Physician: Elmo Moreno Reason for Consult: Abdominal Pain Hospital Course - Lab Results Lab Results: Most Recent Lab Values WBC 5.1 K/uL (4.8-10.8) 05/07/18 11:32 RBC 3.27 Mil/uL (4.40-5.90) L 05/07/18 11:32 Hgb 11.9 g/dL (12.0-18.0) L 05/07/18 11:32 Hct 34.6 % (35.0-51.0) L 05/07/18 11:32 MCV 105.8 fL (80.0-94.0) H D 05/07/18 11:32 MCH 36.5 pg (27.0-31.0) H 05/07/18 11:32 MCHC 34.5 g/dL (33.0-37.0) 05/07/18 11:32 RDW 15.0 % (11.5-14.5) H 05/07/18 11:32 Plt Count 266 K/uL (130-400) 05/07/18 11:32 MPV 7.1 fL (7.2-11.7) L 05/07/18 11:32 Neut % (Auto) 71.0 % (50.0-75.0) 05/07/18 11:32 Lymph % (Auto) 15.6 % (20.0-40.0) L 05/07/18 11:32 Tate % (Auto) 9.5 % (0.0-10.0) 05/07/18 11:32 Eos % (Auto) 2.6 % (0.0-4.0) 05/07/18 11:32 Baso % (Auto) 1.3 % (0.0-2.0) 05/07/18 11:32 Neut # (Auto) 3.6 K/uL (1.8-7.0) 05/07/18 11:32 Lymph # (Auto) 0.8 K/uL (1.0-4.3) L 05/07/18 11:32 Tate # (Auto) 0.5 K/uL (0.0-0.8) 05/07/18 11:32 Eos # (Auto) 0.1 K/uL (0.0-0.7) 05/07/18 11:32 Baso # (Auto) 0.1 K/uL (0.0-0.2) 05/07/18 11:32 Neutrophils % (Manual) 82 % (50-75) H 05/03/18 06:10 Band Neutrophils % 3 % (0-2) H 05/03/18 06:10 Lymphocytes % (Manual) 5 % (20-40) L 05/03/18 06:10 Monocytes % (Manual) 10 % (0-10) 05/03/18 06:10 Platelet Estimate Normal (NORMAL) 05/03/18 06:10 PT 11.7 SECONDS (9.7-12.2) 05/07/18 11:32 INR 1.1 05/07/18 11:32 APTT 27 SECONDS (21-34) 05/07/18 11:32 Sodium 131 mmol/L (132-148) L 05/09/18 06:58 Potassium 4.0 mmol/L (3.6-5.2) 05/09/18 06:58 Chloride 97 mmol/L (98-107) L 05/09/18 06:58 Carbon Dioxide 29 mmol/L (22-30) 05/09/18 06:58 Anion Gap 9 (10-20) L 05/09/18 06:58 BUN 6 mg/dL (9-20) L 05/09/18 06:58 Creatinine 0.7 mg/dL (0.8-1.5) L 05/09/18 06:58 Est GFR ( Amer) > 60 05/09/18 06:58 Est GFR (Non-Af Amer) > 60 05/09/18 06:58 POC Glucose (mg/dL) 111 mg/dL (65-110) H 05/05/18 06:11 Random Glucose 81 mg/dL (75-110) D 05/09/18 06:58 Calcium 8.6 mg/dl (8.6-10.4) 05/09/18 06:58 Phosphorus 3.4 mg/dL (2.5-4.5) 05/03/18 06:10 Magnesium 1.5 mg/dL (1.6-2.3) L 05/04/18 07:15 Total Bilirubin 0.6 mg/dL (0.2-1.3) 05/07/18 11:32 AST 35 U/L (17-59) 05/07/18 11:32 ALT 27 U/L (21-72) 05/07/18 11:32 Alkaline Phosphatase 57 U/L (38-126) 05/07/18 11:32 Total Protein 6.5 g/dL (6.3-8.3) 05/07/18 11:32 Albumin 3.4 g/dL (3.5-5.0) L 05/07/18 11:32 Globulin 3.1 gm/dL (2.2-3.9) 05/07/18 11:32 Albumin/Globulin Ratio 1.1 (1.0-2.1) 05/07/18 11:32 Amylase < 30 U/L (30-110) L 05/05/18 16:59 Lipase 98 U/L (23-300) 05/05/18 16:59 Alpha Fetoprotein 2.9 ng/mL (0.0-7.5) 05/05/18 16:35 Carcinoembryonic Ag 2.3 ng/mL (0-3.0) 05/05/18 16:35 CA 19-9 Antigen 7.0 U/mL (0-37) 05/05/18 16:35 Urine Color Yellow (YELLOW) 05/03/18 08:38 Urine Clarity Clear (Clear) 05/03/18 08:38 Urine pH 5.0 (5.0-8.0) 05/03/18 08:38 Ur Specific [place] 1.018 (1.003-1.030) 05/03/18 08:38 Urine Protein Negative mg/dL (NEGATIVE) 05/03/18 08:38 Urine Glucose (UA) Normal mg/dL (Normal) 05/03/18 08:38 Urine Ketones 1+ mg/dL (NEGATIVE) H 05/03/18 08:38 Urine Blood Negative (NEGATIVE) 05/03/18 08:38 Urine Nitrate Negative (NEGATIVE) 05/03/18 08:38 Urine Bilirubin Negative (NEGATIVE) 05/03/18 08:38 Urine Urobilinogen 2.0 mg/dL (0.2-1.0) 05/03/18 08:38 Ur Leukocyte Esterase Neg [place]/uL (Negative) 05/03/18 08:38 Urine WBC (Auto) 2 /hpf (0-5) 05/03/18 08:38 Urine RBC (Auto) < 1 /hpf (0-3) 05/03/18 08:38 Ur Squamous Epith Cells < 1 /hpf (0-5) 05/03/18 08:38 Urine Bacteria Rare (<OCC) 05/03/18 08:38 Urine Opiates Screen Negative (NEGATIVE) 05/03/18 08:38 Urine Methadone Screen Negative (NEGATIVE) 05/03/18 08:38 Ur Barbiturates Screen Negative (NEGATIVE) 05/03/18 08:38 Ur Phencyclidine Scrn Negative (NEGATIVE) 05/03/18 08:38 Ur Amphetamines Screen Negative (NEGATIVE) 05/03/18 08:38 U Benzodiazepines Scrn Positive (NEGATIVE) 05/03/18 08:38 U Oth Cocaine Metabols Negative (NEGATIVE) 05/03/18 08:38 U Cannabinoids Screen Negative (NEGATIVE) 05/03/18 08:38 Alcohol, Quantitative 117 mg/dl (0-10) H 05/03/18 06:10 Discharge Plan - Discharge Medications Prescriptions: Folic Acid 1 mg PO DAILY #30 tab Multivitamins [Hexavitamin] 1 tab PO DAILY #30 tab levETIRAcetam [Keppra] 500 mg PO Q12 #60 tab amLODIPine [Norvasc] 5 mg PO DAILY #30 tab Levothyroxine [Synthroid] 100 mcg PO DAILY #30 tab Thiamine [Vitamin B1 Tab] 100 mg PO DAILY #30 tab - Follow Up Plan Condition: FAIR Disposition: HOME/ ROUTINE Instructions: Colonoscopy (DC), Seizures, Adult (DC), Hypothyroidism (Underactive Thyroid) (DC), Alcohol Withdrawal (DC), Alcohol Abuse and Alcoholism (DC), Upper GI Endoscopy (DC), Levetiracetam, Levothyroxine Additional Instructions: Please follow up with PMD in 1 week please continue medication as per med. rec. Referrals: Lion Castillo MD [Staff Provider] -
--- NOTE | 2018-05-10 04:47 | DS ---
DISCHARGE DIAGNOSES: 1. Alcohol withdrawal delirium tremens. 2. Dehydration, hyponatremia. 3. Hypertension. 4. Anxiety and depression. HISTORY OF PRESENT ILLNESS: This is a 62-year-old white male with history of alcoholism, polysubstance abuse, generalized weakness, palpitation, weakness, dizziness, sweating, found to be in DTs. He was started on IV Ativan, and abdomen, he has tenderness. He underwent colonoscopy and endoscopy. He is feeling better, and he is for discharge. CONDITION UPON DISCHARGE: Stable. DISCHARGE PLAN: He needs to abstain from alcohol. He needs to seek outpatient alcohol anonymous program. PHYSICAL EXAMINATION: VITAL SIGNS: Blood pressure 113/65, pulse 100, respiratory rate 20, temperature 97.3. LUNGS: Clear. CARDIOVASCULAR SYSTEM: S1 and S2 are regular. ABDOMEN: Soft. LABORATORIES: WBC , hemoglobin 11.9, hematocrit 34.6, platelets 266. Sodium 131, potassium 4, chloride 97, bicarb 29, BUN 6, creatinine 0.7. CONDITION UPON DISCHARGE: Stable. Lion Castillo MD
== END 2018-05-09 16:39 | disposition home or self-care (01) | DRG 897 ==
LOC: C.ER 03:01 → C.9E 09:43 → C.6T 13:01
PROVIDERS: ADMIT Internal Medicine; ATTEND Internal Medicine
PROC: 0DB68ZX Excision of Stomach, Via Natural or Artificial Opening Endoscopic, Diagnostic (ICD-10-PCS; 2018-05-08)
PROC: 0DBK8ZX Excision of Ascending Colon, Via Natural or Artificial Opening Endoscopic, Diagnostic (ICD-10-PCS; principal; 2018-05-09 12:00)
DX: F10.231 Alcohol dependence with withdrawal delirium (principal); E87.1 Hypo-osmolality and hyponatremia; E87.2 Acidosis; K27.3 Acute peptic ulcer, site unspecified, without hemorrhage or perforation; E87.6 Hypokalemia; E83.42 Hypomagnesemia; F41.9 Anxiety disorder, unspecified; E83.51 Hypocalcemia; E86.0 Dehydration; G40.909 Epilepsy, unspecified, not intractable, without status epilepticus; E11.22 Type 2 diabetes mellitus with diabetic chronic kidney disease; I12.9 Hypertensive chronic kidney disease with stage 1 through stage 4 chronic kidney disease, or unspecified chronic kidney disease; K70.9 Alcoholic liver disease, unspecified; N18.9 Chronic kidney disease, unspecified; K29.70 Gastritis, unspecified, without bleeding; E11.65 Type 2 diabetes mellitus with hyperglycemia; D64.9 Anemia, unspecified; E03.9 Hypothyroidism, unspecified; Y90.5 Blood alcohol level of 100-119 mg/100 ml; D12.2 Benign neoplasm of ascending colon; K44.9 Diaphragmatic hernia without obstruction or gangrene; K29.50 Unspecified chronic gastritis without bleeding

== ENCOUNTER 2018-05-13 12:35 | Inpatient (IN) | payer BC, MEDICARE ==
[2018-05-13 12:35] VITALS: BMI 28.5
[2018-05-13] MEDS ORDERED: Sodium Chloride 0.9% 1,000 ML IV ONE ×2 (12:54→14:29)
--- NOTE | 2018-05-13 13:00 | C.PDOC ---
History Of Present Illness 62 year old male with a history of anxiety, seizure, and alcoholism is brought into the emergency department by ambulance. Patient's roommate called EMS stating that he was anxious at home. Patient's last seizure was two weeks ago, a s he is actively going through alcohol withdrawal. On route to the ED, patient informed EMS that he has suicidal ideation but no plan. Patient currently seizing in ED. Time Seen by Provider: 05/13/18 12:50 Chief Complaint (Nursing): Seizure History Per: Patient History/Exam Limitations: no limitations Number Of Seizures: One Length Of Seizures (Duration): Unknown Precipitating Factor(s): Recent Alcohol Ingestion (prior to arrival) Past Medical History Reviewed: Historical Data, Nursing Documentation, Vital Signs Vital Signs: Last Vital Signs Temp Pulse 100 H 05/13/18 12:44 Resp BP 132/28 L 05/13/18 12:44 Pulse Ox 98 05/13/18 12:44 - Medical History PMH: Anxiety, CVA, Depression, Diabetes, HTN, Hypothyroidism, Pancreatitis, Chronic Kidney Disease (Non dialysis), Seizures Denies: Hepatitis, HIV, Sexually Transmitted Disease Surgical History: No Surg Hx - [facility] Procedures EXCISION OF ASCENDING COLON, ENDO, DIAGN (05/03/18) EXCISION OF STOMACH, ENDO, DIAGN (05/03/18) GROUP PSYCHOTHERAPY (07/20/17) INDIV PSYCHOTHERAPY FOR SUBSTANCE ABUSE, COGNITIV BEHAVIORAL (07/20/17) INDIVIDUAL PSYCHOTHERAPY, COGNITIVE-BEHAVIORAL (07/20/17) INTRODUCTION OF SERUM/TOX/VACCINE INTO MUSCLE, PERC APPROACH (04/10/17) MEASURE OF CARDIAC SAMPL & PRESSURE, L HEART, PERC APPROACH (04/10/17) MEDICATION MANAGEMENT (10/04/17) PLAIN RADIOGRAPHY OF RIGHT AND LEFT HEART USING OTH CONTRAST (04/10/17) Family History: States: No Known Family Hx, Unknown Family Hx - Social History Hx Alcohol Use: Yes Hx Substance Use: Yes - Immunization History Hx Tetanus Toxoid Vaccination: Yes Hx Influenza Vaccination: Yes Hx Pneumococcal Vaccination: Yes Review Of Systems Review Of Systems: ROS cannot be obtained secondary to pt's inabilty to answer questions. Physical Exam - Physical Exam Appears: Non-toxic, Other (actively seizing) Skin: Normal Color, Warm, Dry Head: Atraumatic, Normacephalic Eye(s): bilateral: Normal Inspection, PERRL, EOMI Oral Mucosa: Other (no bite licona to tongue) Throat: Normal Neck: Normal, Supple Chest: Symmetrical, No Tenderness Cardiovascular: Rhythm Regular, No Murmur Respiratory: Normal Breath Sounds, No Rales, No Rhonchi, No Wheezing Extremity: Normal ROM (.) Neurological/Psych: Other (actively seizing, tonic-clonic) ED Course And Treatment - Laboratory Results Result Diagrams: 05/15/18 06:32 05/15/18 06:32 O2 Sat by Pulse Oximetry: 98 (RA) Pulse Ox Interpretation: Normal Medical Decision Making Medical Decision Making: Plan: Chemistry CBC Ativan 2mg IM NaCl IV Fluids Glucose POC Urinalysis Patient initially AOX3, hyperventilating, screaming, can be redirected and calmed down. 16:[address] Castillo who accepted to admit patient under his service for alcohol withdrawal and seizure. Disposition - Disposition Disposition: HOSPITALIZED Disposition Time: 16:00 Condition: STABLE - Clinical Impression Clinical Impression: Seizure, Hypothyroid, Alcohol abuse - Scribe Statement The provider has reviewed the documentation as recorded by the Scribe (Marlon Alfaro) Provider Attestation: All medical record entries made by the Scribe were at my direction and personally dictated by me. I have reviewed the chart and agree that the record accurately reflects my personal performance of the history, physical exam, medical decision making, and the department course for this patient. I have also personally directed, reviewed, and agree with the discharge instructions and disposition.
[2018-05-13 13:41] LABS: BASO # 0.1 K/uL (0.0-0.2); BASO % 1.3 % (0.0-2.0); EOS % 0.6 % (0.0-4.0); LYMPH # 1.4 K/uL (1.0-4.3); MEAN CELL VOLUME 106.6 fL (80.0-94.0); MEAN CORPUSCULAR HEMOGLOBIN 35.7 pg (27.0-31.0); MEAN CORPUSCULAR HGB CONC 33.4 g/dL (33.0-37.0); MEAN PLATELET VOLUME 7.3 fL (7.2-11.7); MONO # 1.1 K/uL (0.0-0.8); MONO % 17.9 % (0.0-10.0); NEUT # 3.4 K/uL (1.8-7.0); NEUT % 56.2 % (50.0-75.0); NRBC % 0.2 % (0.0-2.0); RED CELL DISTRIBUTION WIDTH 14.9 % (11.5-14.5)
[2018-05-13 13:43] LABS: HEMOGLOBIN 14.3 g/dL (12.0-18.0)
[2018-05-13] MEDS ORDERED: Sodium Chloride 0.9% 1,000 ML ONE (13:45)
[2018-05-13 13:55] LABS: ACETAMINOPHEN < 10.0 ug/mL (10.0-30.0); SALICYLATE 1.3 mg/dL 1
[2018-05-13 14:19] LABS: ALB/GLOB RATIO 1.3 (1.0-2.1); ALBUMIN 4.6 g/dL (3.5-5.0); ALT/SGPT 21 U/L (21-72); AST/SGOT 43 U/L (17-59); BLOOD UREA NITROGEN 4 mg/dL (9-20); CALCIUM 9.3 mg/dl (8.6-10.4); GFR NON-AFRICAN AMERICAN > 60
[2018-05-13] MEDS ORDERED: Multivitamin (MVI) 10 ML, Thiamine 100 MG, Folic Acid 1 MG in Sodium Chloride 0.9% 1,00... IV ONE (14:28)
[2018-05-13 18:10] LABS: SQUAMOUS EPITHIAL < 1 /hpf (0-5); URINE BILIRUBIN NEGATIVE (NEGATIVE); URINE BLOOD NEGATIVE (NEGATIVE); URINE CLARITY Clear (Clear); URINE COLOR Yellow (YELLOW); URINE GLUCOSE (UA) NORMAL (Normal); URINE HYALINE CAST >20 /lpf (0-2); URINE LEUKOCYTE ESTERASE NEG Leu/uL (Negative); URINE PROTEIN NEGATIVE (NEGATIVE); URINE UROBILINOGEN NORMAL mg/dL (0.2-1.0)
[2018-05-13 18:26] LABS: BARBITURATES, UR NEGATIVE (NEGATIVE); OPIATES, UR NEGATIVE (NEGATIVE); PHENCYCLIDINE, UR NEGATIVE (NEGATIVE)
[2018-05-13 18:30] LABS: BENZODIAZEPINES, UR POSITIVE (NEGATIVE)
--- NOTE | 2018-05-13 22:45 | CP.PCM.HP ---
Past Patient History - Infectious Disease Hx of Infectious Diseases: None - Past Medical History & Family History Past Medical History?: Yes - Past Social History Smoking Status: Light Smoker < 10 Cigarettes Daily - CARDIAC Hx Cardiac Disorders: Yes Hx Hypertension: Yes - PULMONARY Hx Respiratory Disorders: No - NEUROLOGICAL Hx Neurological Disorder: Yes Hx Seizures: Yes - HEENT Hx HEENT Problems: No - RENAL Hx Chronic Kidney Disease: Yes (Non dialysis) - ENDOCRINE/METABOLIC Hx Endocrine Disorders: Yes Hx Hypothyroidism: Yes - HEMATOLOGICAL/ONCOLOGICAL Hx Blood Disorders: No Hx Human Immunodeficiency Virus (HIV): No - INTEGUMENTARY Hx Dermatological Problems: No - MUSCULOSKELETAL/RHEUMATOLOGICAL Hx Musculoskeletal Disorders: Yes Hx Falls: Yes - GASTROINTESTINAL Hx Gastrointestinal Disorders: Yes Hx Pancreatitis: Yes - GENITOURINARY/GYNECOLOGICAL Hx Genitourinary Disorders: No Hx Sexually Transmitted Disorders: No - PSYCHIATRIC Hx Psychophysiologic Disorder: Yes Hx Substance Use: Yes - SURGICAL HISTORY Hx Surgeries: Yes Hx Joint Replacement: Yes (Hip replacement x 3, knee replacement x 2) Hx Musculoskeletal Surgery: Yes Other/Comment: knee replacement x 2 - ANESTHESIA Hx Anesthesia: Yes Hx Anesthesia Reactions: No Hx Malignant Hyperthermia: No Has any member of the family had a problem w/ anesthesia?: No Meds Allergies/Adverse Reactions: Allergies Allergy/AdvReac Type Severity Reaction Status Date / Time iodine Allergy RASH Verified 05/13/18 12:52 Penicillins Allergy Verified 05/13/18 12:52 Results - Vital Signs Recent Vital Signs: Last Vital Signs Temp 98.2 F 05/13/18 19:06 Pulse 91 H 05/13/18 19:06 Resp 22 05/13/18 19:06 BP 134/81 05/13/18 19:06 Pulse Ox 97 05/13/18 19:06 - Labs Result Diagrams: 05/13/18 13:37 05/13/18 13:37 Labs: Laboratory Results - last 24 hr 05/13/18 05/13/18 05/13/18 12:48 13:37 13:37 WBC 6.0 RBC 4.00 L Hgb 14.3 D Hct 42.7 MCV 106.6 H MCH 35.7 H MCHC 33.4 RDW 14.9 H Plt Count 469 H D MPV 7.3 Neut % (Auto) 56.2 Lymph % (Auto) 24.0 [place] % (Auto) 17.9 H Eos % (Auto) 0.6 Baso % (Auto) 1.3 Neut # (Auto) 3.4 Lymph # (Auto) 1.4 [place] # (Auto) 1.1 H Eos # (Auto) 0.0 Baso # (Auto) 0.1 Sodium 135 Potassium 3.4 L Chloride 97 L Carbon Dioxide 9 L* D Anion Gap 34 H BUN 4 L Creatinine 1.2 Est GFR ( Amer) > 60 Est GFR (Non-Af Amer) > 60 POC Glucose (mg/dL) 101 Random Glucose 72 L Calcium 9.3 Total Bilirubin 0.9 AST 43 ALT 21 D Alkaline Phosphatase 63 Total Protein 8.2 Albumin 4.6 Globulin 3.5 Albumin/Globulin Ratio 1.3 TSH 3rd Generation 9.68 H Urine Color Urine Clarity Urine pH Ur Specific [place] Urine Protein Urine Glucose (UA) Urine Ketones Urine Blood Urine Nitrate Urine Bilirubin Urine Urobilinogen Ur Leukocyte Esterase Urine WBC (Auto) Urine RBC (Auto) Ur Squamous Epith Cells Hyaline Casts Salicylates Urine Opiates Screen Urine Methadone Screen Acetaminophen Ur Barbiturates Screen Ur Phencyclidine Scrn Ur Amphetamines Screen U Benzodiazepines Scrn U Oth Cocaine Metabols U Cannabinoids Screen Alcohol, Quantitative 38 H 05/13/18 05/13/18 05/13/18 13:37 17:58 17:58 WBC RBC Hgb Hct MCV MCH MCHC RDW Plt Count MPV Neut % (Auto) Lymph % (Auto) [place] % (Auto) Eos % (Auto) Baso % (Auto) Neut # (Auto) Lymph # (Auto) [place] # (Auto) Eos # (Auto) Baso # (Auto) Sodium Potassium Chloride Carbon Dioxide Anion Gap BUN Creatinine Est GFR ( Amer) Est GFR (Non-Af Amer) POC Glucose (mg/dL) Random Glucose Calcium Total Bilirubin AST ALT Alkaline Phosphatase Total Protein Albumin Globulin Albumin/Globulin Ratio TSH 3rd Generation Urine Color Yellow Urine Clarity Clear Urine pH 6.0 Ur Specific [place] 1.012 Urine Protein Negative Urine Glucose (UA) Normal Urine Ketones Negative Urine Blood Negative Urine Nitrate Negative Urine Bilirubin Negative Urine Urobilinogen Normal Ur Leukocyte Esterase Neg Urine WBC (Auto) 2 Urine RBC (Auto) < 1 Ur Squamous Epith Cells < 1 Hyaline Casts >20 H Salicylates 1.3 Urine Opiates Screen Negative Urine Methadone Screen Negative Acetaminophen < 10.0 L Ur Barbiturates Screen Negative Ur Phencyclidine Scrn Negative Ur Amphetamines Screen Negative U Benzodiazepines Scrn Positive U Oth Cocaine Metabols Negative U Cannabinoids Screen Negative Alcohol, Quantitative
[2018-05-14] MEDS: Levothyroxine 100 MCG TAB PO SCH (06:04)
[2018-05-14] MEDS ORDERED: Folic Acid 1 MG, Thiamine 100 MG, Multivitamin (MVI) 10 ML in Dextrose 5% In Water 1,00... IV ONE (07:00)
[2018-05-14] MEDS ORDERED: Pantoprazole 20 mg EC Tab PO SCH (10:00)
[2018-05-14] MEDS: Venlafaxine 150 mg ER Cap PO SCH (10:14)
[2018-05-14] MEDS: Enoxaparin 40 mg Syringe SC SCH (10:14)
[2018-05-14] MEDS: Multiple Vitamins Tab PO SCH (10:17)
[2018-05-14 11:55] LABS: MEAN CELL VOLUME 104.9 fL (80.0-94.0); MEAN CORPUSCULAR HEMOGLOBIN 36.4 pg (27.0-31.0); MEAN CORPUSCULAR HGB CONC 34.7 g/dL (33.0-37.0); MEAN PLATELET VOLUME 7.9 fL (7.2-11.7); RBC 3.06 Mil/uL (4.40-5.90); WHITE BLOOD COUNT 5.4 K/uL (4.8-10.8)
[2018-05-14 12:00] LABS: HEMOGLOBIN 11.1 g/dL (12.0-18.0)
--- NOTE | 2018-05-14 12:02 | CARD ---
APPROVED REPORT Date of service: 05/13/2018 EKG Measurement Heart [id number] <Conclusion> Normal sinus rhythm Possible Anterior infarct, age undetermined Abnormal ECG
[2018-05-14 12:15] LABS: BLOOD UREA NITROGEN 10 mg/dL (9-20); CALCIUM 8.1 mg/dl (8.6-10.4); GFR NON-AFRICAN AMERICAN > 60
--- NOTE | 2018-05-14 13:52 | PCM.PSYCH ---
Initial Psychiatric Evaluation - Initial Psychiatric Evaluation Type of Admission: Voluntary Legal Status: Capacity Chief Complaint (in patient's own words): "I'm in pain" History of Present Illness and Precipitating Events: Consult was requested for his alcohol use. This is a 62 y.o. single male, retired instructor correspondence school who lives alone in an apt in [place] presents with. Pt states he has abused alcohol for 48 years. He prefers vodka almost daily with amounts varying from 2-4 pints. Pt states he cannot tolerate drinking as much as he used to due to associated physical pain. Pt has been to rehab numerous times in [place], [place], and [place]. He has tried AA meetings but states he did not find them helpful. His longest sobriety from alcohol was for one year but he was abusing pain pills at that time. Pt also has a prescription for Ativan, 1 mg 3x a day, from his primary care Dr. Reynoso. Pt has been abusing Ativan and taking more than prescribed so he continues to run out of medications and begins to feel withdrawal symptoms. Pt states he has had one suicide attempt in the past via OD on Zanax and alcohol but he just slept through it. Current pt sx include tremors, dry heaving, nausea, and vomiting of green bile. Patient feels "disgusted" and depressed due to his inability to quit drinking. However, he currently denies any SI, HI, or auditory or visual hallucinations. PMHx: Chronic pancreatitis, Insomnia PSHx: 2 knee replacements, 2 hip replacements; pt ambulates with a walker Psych Hx: depression, panic attack disorder, no admissions Current Medications: Active Medications Generic Name Dose Route Start Last Admin Trade Name Freq PRN Reason Stop Dose Admin Acetaminophen 650 mg 05/14/18 10:07 05/14/18 10:22 Tylenol 325mg Tab PO 650 mg Q6 PRN Administration Headache Amlodipine Besylate 5 mg 05/14/18 10:05/14/18 10:15 Norvasc PO 5 mg DAILY XU Administration Chlordiazepoxide 0 mg 05/14/18 18:00 Librium PO 05/19/18 17:59 Q6 XU Taper Chlordiazepoxide 25 mg 05/14/18 13:49 Librium PO Q4H PRN Alcohol Withdrawal Clonidine HCl 0.1 mg 05/14/18 13:49 Catapres PO Q4H PRN Symptoms of alcohol withdrawl Enoxaparin Sodium 40 mg 05/14/18 10:00 05/14/18 10:14 Lovenox SC 40 mg DAILY XU Administration Folic Acid 1 mg 05/14/18 10:00 05/14/18 10:15 Folic Acid PO 1 mg DAILY XU Administration Levothyroxine Sodium 100 mcg 05/14/18 06:30 05/14/18 06:04 Synthroid PO 100 mcg DAILY@0630 XU Administration Multivitamins 1 tab 05/14/18 10:00 05/14/18 10:17 Hexavitamin PO 1 tab DAILY XU Administration Pantoprazole Sodium 20 mg 05/14/18 10:00 05/14/18 10:15 Protonix Ec Tab PO 20 mg DAILY XU Administration Thiamine HCl 100 mg 05/14/18 10:00 05/14/18 10:15 Vitamin B1 Tab PO 100 mg DAILY XU Administration Venlafaxine HCl 150 mg 05/14/18 10:00 05/14/18 10:14 Effexor Xr PO 150 mg DAILY XU Administration Zolpidem Tartrate 5 mg 05/13/18 22:00 05/14/18 03:06 Ambien PO 5 mg HS PRN Administration Insomnia Past Psychiatric History - Past Psychiatric History Previous Treatment History: Intensive Outpatient Pertinent Medical Hx (Current Medical&Sleep Prob, Allergies): Allergies Allergy/AdvReac Type Severity Reaction Status Date / Time iodine Allergy RASH Verified 05/13/18 12:52 Penicillins Allergy Verified 05/13/18 12:52 LORazepam [Ativan] 1 mg PO Q8 PRN 02/26/18 Venlafaxine [Effexor XR] 150 mg PO DAILY 02/26/18 Zolpidem [Ambien] 10 mg PO HS 02/26/18 Folic Acid 1 mg PO DAILY #30 tab 05/09/18 Levothyroxine [Synthroid] 100 mcg PO DAILY #30 tab 05/09/18 Multivitamins [Hexavitamin] 1 tab PO DAILY #30 tab 05/09/18 Thiamine [Vitamin B1 Tab] 100 mg PO DAILY #30 tab 05/09/18 amLODIPine [Norvasc] 5 mg PO DAILY #30 tab 05/09/18 levETIRAcetam [Keppra] 500 mg PO Q12 #60 tab 05/09/18 Review of Systems - Psychiatric Psychiatric: Abnormal Sleep Pattern, Anhedonia, Anxiety, Change in Appetite, Depression, Difficulty Concentrating, Irritability, Mood Swings. absent: Hallucinations, Paranoia, Suicidal Ideation Mental Status Examination - Personal Presentation Personal Presentation: Looks stated age - Affect Affect: Constricted - Motor Activity Motor Activity: Calm - Reliability in Providing Information Reliability in Providing Information: Good - Speech Speech: Organized - Mood Mood: Depressed, Anxious - Formal Thought Process Formal Thought Process: No Impairment - Cognitive Functions Orientation: Person, Place, Situation, Time Sensorium: Alert Attention/Concentration: Easily distracted Estimate of Intelligence: Average Judgement: Intact, as evidence by: Insight regarding need for hospitalization Memory: Recent intact, as evidence by: Ability to recall events of the day, Remote impaired as evidenced by: Inability to recall sig life events - Risk Risk: Withdrawal, Diminished functioning - Strength & Assets Inventory Strength & Assets Inventory: Cooperative - Limitations Limitations: Other DSM 5 DX - DSM 5 DSM 5 Diagnosis: Alcohol withdrawal Alcohol use d/o - severe Major depression, severe SAMAN - Recommended/Plan of Treatment Treatment Recommendations and Plan of Treatment: Taper with Librium. Start on Prozac. Gabapentin for augmentation and anxiety As needed medications include Acetaminophen, Librium, Clonidine, Ambien. All risks, benefits, and alternatives of the meds discussed and the pt agreed and understood. Supportive therapy and psychoeducation. [place] for abstinence. CBT for relapse prevention. 33 min Projected ELOS: 4-5 days Prognosis: good w treatment
[2018-05-14] MEDS ORDERED: Potassium Chloride 20 mEq ER Tab PO ONE (14:15)
[2018-05-14 18:23] LABS: HEMOGLOBIN 11.2 g/dL (12.0-18.0); MEAN CELL VOLUME 105.1 fL (80.0-94.0); MEAN CORPUSCULAR HEMOGLOBIN 35.2 pg (27.0-31.0); MEAN CORPUSCULAR HGB CONC 33.5 g/dL (33.0-37.0); MEAN PLATELET VOLUME 7.4 fL (7.2-11.7); RBC 3.18 Mil/uL (4.40-5.90); RED CELL DISTRIBUTION WIDTH 14.8 % (11.5-14.5); WHITE BLOOD COUNT 5.6 K/uL (4.8-10.8)
--- NOTE | 2018-05-14 21:54 | CP.PCM.PN ---
Subjective - Subjective Subjective: dictated Objective - Vital Signs/Intake and Output Vital Signs (last 24 hours): Temp Pulse Resp BP Pulse Ox 98.9 F 79 20 126/77 95 05/14/18 15:42 05/14/18 16:00 05/14/18 15:42 05/14/18 15:42 05/14/18 15:42 Intake and Output: 05/14/18 05/15/18 18:59 06:59 Output Total 100 Balance -100 - Medications Medications: Current Medications Acetaminophen (Tylenol 325mg Tab) 650 mg PO Q6 PRN PRN Reason: Headache Last Admin: 05/14/18 10:22 Dose: 650 mg Amlodipine Besylate (Norvasc) 5 mg PO DAILY [facility] Last Admin: 05/14/18 10:15 Dose: 5 mg Chlordiazepoxide (Librium) 25 mg PO Q6H [facility]; Taper Stop: 05/19/18 17:59 Last Admin: 05/14/18 17:53 Dose: 25 mg Chlordiazepoxide (Librium) 25 mg PO Q4H PRN PRN Reason: Alcohol Withdrawal Clonidine HCl (Catapres) 0.1 mg PO Q4H PRN PRN Reason: Symptoms of alcohol withdrawl Enoxaparin Sodium (Lovenox) 40 mg SC DAILY [facility] Last Admin: 05/14/18 10:14 Dose: 40 mg Fluoxetine HCl (Prozac) 20 mg PO DAILY [facility] Folic Acid (Folic Acid) 1 mg PO DAILY [facility] Last Admin: 05/14/18 10:15 Dose: 1 mg Gabapentin (Neurontin) 300 mg PO BID [facility] Last Admin: 05/14/18 17:52 Dose: 300 mg Levothyroxine Sodium (Synthroid) 100 mcg PO DAILY@0630 [facility] Last Admin: 05/14/18 06:04 Dose: 100 mcg Mirtazapine (Remeron) 15 mg PO HS [facility] Last Admin: 05/14/18 21:30 Dose: 15 mg Multivitamins (Hexavitamin) 1 tab PO DAILY [facility] Last Admin: 05/14/18 10:17 Dose: 1 tab Pantoprazole Sodium (Protonix Ec Tab) 40 mg PO DAILY [facility] Thiamine HCl (Vitamin B1 Tab) 100 mg PO DAILY [facility] Last Admin: 05/14/18 10:15 Dose: 100 mg Venlafaxine HCl (Effexor Xr) 150 mg PO DAILY [facility] Last Admin: 05/14/18 10:14 Dose: 150 mg Zolpidem Tartrate (Ambien) 5 mg PO HS PRN PRN Reason: Insomnia Last Admin: 05/14/18 03:06 Dose: 5 mg - Labs Labs: 05/14/18 18:17 05/14/18 11:09
--- NOTE | 2018-05-15 00:28 | PN ---
DATE: 05/14/2018 SUBJECTIVE: The patient has been (00:04) and calm. He has been tremulous at times. He has been requiring Ativan. He has not had any seizure. He is on seizure watch, and he will require rehab. PHYSICAL EXAMINATION: VITAL SIGNS: Blood pressure 115/76, pulse 82, respiratory rate 20, and temperature 97.7. LUNGS: Clear. No rale. No rhonchi. CARDIOVASCULAR SYSTEM: S1, S2, regular. ABDOMEN: Soft, nontender. Bowel sounds are positive. ASSESSMENT: 1. Alcohol withdrawal, delirium tremens. 2. Hypertension. 3. Dehydration. PLAN: Continue the patient to monitor neurologically. Ativan p.r.n. Monitor the patient. Lion Castillo MD
--- NOTE | 2018-05-15 04:11 | HP ---
CHIEF COMPLAINT: Seizure x today. HISTORY OF PRESENT ILLNESS: This is a 62-year-old white male, well known to me, with a history of alcohol abuse, anxiety, depression, hypertension and seizure due to alcohol who is noncompliant with diet, medication, and followup. The patient was recently discharged from [facility] where he was treated for GI bleed, upper abdominal pain and alcohol withdrawal. The patient went home. He did well. He started drinking and he had seizure. He started feeling delirious, tremulous, anxious and weak. He was brought back, and he is hospitalized. The patient is in the hospital. He has headache. He denies any dizziness. He has nausea. No vomiting. He has dyspepsia. He denies any fever or chills. He denies any polyuria, polydipsia, or polyphagia. He denies any hematuria or pyuria. He denies any history of trauma, fall, or loss of consciousness. No history of head injury. PAST MEDICAL HISTORY: Severe hypertension, anxiety, depression, alcoholism, and several hospitalizations for DT, hypothyroidism. CURRENT MEDICATIONS: At home, Norvasc, Ambien, Effexor, vitamin B1, multivitamin, Synthroid, folic acid, Keppra, Ativan. SOCIAL HISTORY: He smokes. He drinks. FAMILY HISTORY: Negative for seizure disorder. PHYSICAL EXAMINATION: GENERAL: An elderly male in no acute distress. He is anxious. He is tremulous. VITAL SIGNS: Blood pressure 129/75, pulse 100, respiratory rate 24, and temperature 98. SKIN: Flushed. No bruises. No purpura. No petechia. HEENT: Atraumatic and normocephalic. Negative pallor. Negative jaundice. Extraocular movements are intact. NECK: Supple. No JVD. No lymph nodes. No thyromegaly. No carotid bruits. CHEST WALL: Bilateral symmetrical expansion. LUNGS: Bilaterally clear. No rales. No rhonchi. CARDIOVASCULAR SYSTEM: PMI in the fifth intercostal space. S1 and S2 are regular. ABDOMEN: Soft. Nontender. Bowel sounds are positive. RECTAL: Enlarged prostate. EXTREMITIES: No clubbing, cyanosis, or edema. CENTRAL NERVOUS SYSTEM: Awake, alert, anxious with coarse tremor all over the body. Cranial nerves II through XII are normal. Power 5/5 x4. Plantars are downgoing. ASSESSMENT: 1. Alcohol withdrawal delirium tremens. 2. Alcoholism. 3. Hypertension. 4. Dehydration. PLAN: Admit. Detailed orders are written. Seen and examined. Lion Castillo MD
[2018-05-15] MEDS: Levothyroxine 100 MCG TAB PO SCH (05:58)
[2018-05-15 07:27] LABS: ALB/GLOB RATIO 1.1 (1.0-2.1); ALBUMIN 3.3 g/dL (3.5-5.0); ALT/SGPT 19 U/L (21-72); AST/SGOT 32 U/L (17-59); BLOOD UREA NITROGEN 6 mg/dL (9-20); CALCIUM 8.6 mg/dl (8.6-10.4); GFR NON-AFRICAN AMERICAN > 60
[2018-05-15 07:46] LABS: BASO # 0.1 K/uL (0.0-0.2); EOS # 0.1 K/uL (0.0-0.7); EOS % 2.9 % (0.0-4.0); HEMOGLOBIN 11.5 g/dL (12.0-18.0); LYMPH # 0.8 K/uL (1.0-4.3); LYMPH % 22.1 % (20.0-40.0); MEAN CELL VOLUME 105.9 fL (80.0-94.0); MEAN CORPUSCULAR HEMOGLOBIN 36.3 pg (27.0-31.0); MEAN CORPUSCULAR HGB CONC 34.3 g/dL (33.0-37.0); MEAN PLATELET VOLUME 7.6 fL (7.2-11.7); MONO # 0.5 K/uL (0.0-0.8); MONO % 13.3 % (0.0-10.0); NEUT # 2.3 K/uL (1.8-7.0); NEUT % 59.7 % (50.0-75.0); NRBC % 0.1 % (0.0-2.0); RBC 3.17 Mil/uL (4.40-5.90); RED CELL DISTRIBUTION WIDTH 14.5 % (11.5-14.5); WHITE BLOOD COUNT 3.8 K/uL (4.8-10.8)
[2018-05-15] MEDS: Venlafaxine 150 mg ER Cap PO SCH (09:33)
[2018-05-15] MEDS: Multiple Vitamins Tab PO SCH (09:33)
[2018-05-15] MEDS: Enoxaparin 40 mg Syringe SC SCH (09:33)
[2018-05-15] MEDS: Pantoprazole 40 mg EC Tab PO SCH (10:34)
--- NOTE | 2018-05-15 14:47 | PCM.PYCHPN ---
Psychiatric Progress Note - Psychiatric Progress Note Patient seen today, length of contact: 16 min Patient Chief Complaint: "I'm not well" Problems Identified/Issues Discussed: The pt is seen, chart reviewed, case is discussed with staff. The pt is compliant with medications and reports no side-effects. Symptoms are improving but needs more time to stabilize and to avoid relapse. Support given, psycho-education provided. After care discussed. To be transferred to detox Medication Change: Yes Medical Record Reviewed: Yes Mental Status Examination - Cognitive Function Orientation: Person, Place, Situation, Time Memory: Intact Attention: WNL Concentration: Poor Association: WNL Fund of Knowledge: WNL - Mood Mood: Depressed, Anxious - Affect Affect: Constricted - Speech Speech: Appropriate - Formal Thought Process Formal Thought Process: No Impairment - Suicidal Ideation Suicidal Ideation: No - Homicidal Ideation Homicidal Ideation: No Goal/Treatment Plan - Goal/Treatment Plan Need for Continued Stay: Discharge may exacerbated symptoms, Severe functional impairment Progress Toward Problem(s) and Goals/Treatment Plan: Taper with Librium. Start on Prozac. Gabapentin for augmentation and anxiety As needed medications include Acetaminophen, Librium, Clonidine, Ambien. All risks, benefits, and alternatives of the meds discussed and the pt agreed and understood. Supportive therapy and psychoeducation. [place] for abstinence. CBT for relapse prevention.
--- NOTE | 2018-05-15 14:48 | PCM.BM ---
<RodolfoMehnaz - Last Filed: 05/15/18 14:45> Treatment Plan Problems - Problems identified on initial assessmt Denial Date Initiated: 05/15/18 Time Initiated: 14:47 Assessment reference: NA Status: Active Low motivation to change Date Initiated: 05/15/18 Assessment reference: NA Status: Active Treatment assets and liabiliti Patient Assests: cooperative, negotiates basic needs, cognitively intact Patient Liabilities: physical pain, financial problems, relationship conflicts, medical problems - Milieu Protocol Maintain good personal hygiene: every shift Encourage regular showers, every shift Remind patient to perform daily oral care, every shift Assist patient to perform ADL's Conduct patient checks and document Observation sheet: Q15 minutes Maintain personal safety: every shift Educate patient to report safety concerns to staff, every shift Monitor environment for contraband/sharps Medication safety: Monitor for expected outcome, potential side effects: every shift, Assess barriers to learning: every shift, Assess readiness for medication education: every shift Milieu Narrative: Taper with Librium. Start on Prozac. Gabapentin for augmentation and anxiety As needed medications include Acetaminophen, Librium, Clonidine, Ambien. All risks, benefits, and alternatives of the meds discussed and the pt agreed and understood. Supportive therapy and psychoeducation. [place] for abstinence. CBT for relapse prevention. 33 min Discharge/Continuing Care - Treatment Team Participation Patient/Family/SO Statement: Taper with Librium. Start on Prozac. Gabapentin for augmentation and anxiety As needed medications include Acetaminophen, Librium, Clonidine, Ambien. All risks, benefits, and alternatives of the meds discussed and the pt agreed and understood. Supportive therapy and psychoeducation. [place] for abstinence. CBT for relapse prevention. 33 min <Herve Goldman - Last Filed: 05/15/18 22:48> - Diagnosis (1) Alcohol withdrawal Status: Acute Interventions: 05/15/18 22:47 * Assess 7x/week regarding severity of withdrawal * Educate regarding risks, benefits, side effects and alternatives of medications * Use Motivational Interviewing for abstinence * Use CBT for relapse prevention * Medication management for withdrawal symptoms * Encourage medication assisted treatment *
[2018-05-16] MEDS: Levothyroxine 100 MCG TAB PO SCH (06:57)
[2018-05-16] MEDS: Multiple Vitamins Tab PO SCH (09:54)
[2018-05-16] MEDS: Venlafaxine 150 mg ER Cap PO SCH (09:54)
[2018-05-16] MEDS: Enoxaparin 40 mg Syringe SC SCH (09:54)
[2018-05-16] MEDS: Pantoprazole 40 mg EC Tab PO SCH (09:54)
[2018-05-17] MEDS: Levothyroxine 100 MCG TAB PO SCH (06:12)
[2018-05-17] MEDS: Multiple Vitamins Tab PO SCH (09:29)
[2018-05-17] MEDS: Pantoprazole 40 mg EC Tab PO SCH (09:29)
[2018-05-17] MEDS: Enoxaparin 40 mg Syringe SC SCH (09:32)
[2018-05-18] MEDS: Levothyroxine 100 MCG TAB PO SCH (06:19)
[2018-05-18] MEDS: Enoxaparin 40 mg Syringe SC SCH (09:18)
[2018-05-18] MEDS: Pantoprazole 40 mg EC Tab PO SCH (09:18)
[2018-05-18] MEDS: Multiple Vitamins Tab PO SCH (09:18)
[2018-05-19] MEDS: Levothyroxine 100 MCG TAB PO SCH (05:54)
--- NOTE | 2018-05-19 09:11 | PCM.PYCHDC ---
Mental Status Examination - Mental Status Examination Orientation: Person Discharge Summary - Discharge Note Consultations:: List each consultation separately and include: 1. Reason for request. 2. Findings. 3. Follow-up Summary of Hospital Course include:: 1. Description of specific treatment plan utilized for patients during their course of treatmen. 2. Summarize the time- course for resolution of acute symptoms and/or regressed behaviors. 3. Describe issues identified and worked on during hospitalization. 4. Describe medication utilized. 5. Describe medical problems identified and treated. 6. Reassessment of suicide risk Summary of Hospital Course: Consult was requested for his alcohol use. This is a 62 y.o. 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 Pt states he has abused alcohol for 48 years. He prefers vodka almost daily with amounts varying from 2-4 pints. Pt states he cannot tolerate drinking as much as he used to due to associated physical pain. Pt has been to rehab numerous times in [place], [place], and [place]. He has tried AA meetings but states he did not find them helpful. His longest sobriety from alcohol was for one year but he was abusing pain pills at that time. Pt also has a prescription for Ativan, 1 mg 3x a day, from his primary care Dr. Reynoso. Pt has been abusing Ativan and taking more than prescribed so he continues to run out of medications and begins to feel withdrawal symptoms. Pt states he has had one suicide attempt in the past via OD on Zanax and alcohol but he just slept through it. Current pt sx include tremors, dry heaving, nausea, and vomiting of green bile. Patient feels "disgusted" and depressed due to his inability to quit drinking. However, he currently denies any SI, HI, or auditory or visual hallucinations. PMHx: Chronic pancreatitis, Insomnia PSHx: 2 knee replacements, 2 hip replacements; pt ambulates with a walker Psych Hx: depression, panic attack disorder, no admissions He will go to [facility]. - Diagnosis (1) Alcohol withdrawal Current Visit: No Status: Acute Priority: High - Final Diagnosis (DSM 5) Condition upon Discharge: GOOD Disposition: HOME/ ROUTINE Follow-up Treatment Plan: Taper with Librium. Start on Prozac. Gabapentin for augmentation and anxiety As needed medications include Acetaminophen, Librium, Clonidine, Ambien. All risks, benefits, and alternatives of the meds discussed and the pt agreed and understood. Supportive therapy and psychoeducation. DC for abstinence. CBT for relapse prevention. Prescriptions/Medication Reconciliation: amLODIPine [Norvasc] 5 mg PO DAILY #30 tab FLUoxetine [Prozac] 20 mg PO DAILY #30 cap Folic Acid 1 mg PO DAILY #30 tab Gabapentin [Neurontin] 300 mg PO BID #60 cap Levothyroxine [Synthroid] 100 mcg PO DAILY #30 tab Mirtazapine [Remeron] 15 mg PO HS #30 tab Multivitamins [Hexavitamin] 1 tab PO DAILY #30 tab Pantoprazole [Protonix EC Tab] 40 mg PO DAILY #30 ect Propranolol [Inderal] 10 mg PO TID #90 tab Thiamine [Vitamin B1 Tab] 100 mg PO DAILY #30 tab
[2018-05-19] MEDS: Multiple Vitamins Tab PO SCH (09:37)
[2018-05-19] MEDS: Pantoprazole 40 mg EC Tab PO SCH (09:38)
[2018-05-19] MEDS: Enoxaparin 40 mg Syringe SC SCH (09:39)
[2018-05-19 10:33] VITALS: RESP 16
--- NOTE | 2018-05-19 12:04 | PCM.PYCHPN ---
Psychiatric Progress Note - Psychiatric Progress Note Patient seen today, length of contact: 16 min Patient Chief Complaint: "I'm not well" Problems Identified/Issues Discussed: The pt is seen, chart reviewed, case is discussed with staff. The pt is compliant with medications and reports no side-effects. Symptoms are improving but needs more time to stabilize and to avoid relapse. Support given, psycho-education provided. After care discussed. To be transferred to detox Medication Change: Yes Medical Record Reviewed: Yes Mental Status Examination - Cognitive Function Orientation: Person - Mood Mood: Depressed, Anxious - Affect Affect: Constricted - Speech Speech: Appropriate - Formal Thought Process Formal Thought Process: No Impairment - Suicidal Ideation Suicidal Ideation: No - Homicidal Ideation Homicidal Ideation: No Goal/Treatment Plan - Goal/Treatment Plan Need for Continued Stay: Discharge may exacerbated symptoms, Severe functional impairment Progress Toward Problem(s) and Goals/Treatment Plan: Taper with Librium. Start on Prozac. Gabapentin for augmentation and anxiety As needed medications include Acetaminophen, Librium, Clonidine, Ambien. All risks, benefits, and alternatives of the meds discussed and the pt agreed and understood. Supportive therapy and psychoeducation. MN for abstinence. CBT for relapse prevention.
[2018-05-19 12:43] VITALS: BP 130/86; PULSE 76; TEMP 97.7; O2SAT 98
== END 2018-05-19 13:45 | disposition home or self-care (01) | DRG 895 ==
LOC: C.ER 12:35 → C.6T 16:00 → C.7D 05-15 09:55
PROVIDERS: ADMIT Psychiatry & Neurology Psychiatry; ATTEND Psychiatry & Neurology Psychiatry
PROC: HZ52ZZZ Individual Psychotherapy for Substance Abuse Treatment, Cognitive-Behavioral (ICD-10-PCS; principal; 2018-05-13)
PROC: HZ2ZZZZ Detoxification Services for Substance Abuse Treatment (ICD-10-PCS; 2018-05-13)
PROC: HZ59ZZZ Individual Psychotherapy for Substance Abuse Treatment, Supportive (ICD-10-PCS; 2018-05-13)
PROC: HZ56ZZZ Individual Psychotherapy for Substance Abuse Treatment, Psychoeducation (ICD-10-PCS; 2018-05-13)
PROC: HZ42ZZZ Group Counseling for Substance Abuse Treatment, Cognitive-Behavioral (ICD-10-PCS; 2018-05-13)
PROC: HZ46ZZZ Group Counseling for Substance Abuse Treatment, Psychoeducation (ICD-10-PCS; 2018-05-13)
PROC: GZHZZZZ Group Psychotherapy (ICD-10-PCS; 2018-05-13)
PROC: GZ58ZZZ Individual Psychotherapy, Cognitive-Behavioral (ICD-10-PCS; 2018-05-13)
PROC: GZ56ZZZ Individual Psychotherapy, Supportive (ICD-10-PCS; 2018-05-13)
DX: F10.231 Alcohol dependence with withdrawal delirium (principal); G40.509 Epileptic seizures related to external causes, not intractable, without status epilepticus; F32.2 Major depressive disorder, single episode, severe without psychotic features; K86.1 Other chronic pancreatitis; R45.851 Suicidal ideations; E86.0 Dehydration; N18.9 Chronic kidney disease, unspecified; I12.9 Hypertensive chronic kidney disease with stage 1 through stage 4 chronic kidney disease, or unspecified chronic kidney disease; Y90.1 Blood alcohol level of 20-39 mg/100 ml; F41.1 Generalized anxiety disorder; E11.22 Type 2 diabetes mellitus with diabetic chronic kidney disease; E03.9 Hypothyroidism, unspecified; F41.0 Panic disorder [episodic paroxysmal anxiety]; G47.00 Insomnia, unspecified; Z91.11 Patient's noncompliance with dietary regimen; F17.210 Nicotine dependence, cigarettes, uncomplicated; Z96.643 Presence of artificial hip joint, bilateral; Z96.653 Presence of artificial knee joint, bilateral

== ENCOUNTER 2018-06-17 18:40 | Emergency (ER) | payer MEDICARE ==
[2018-06-17 18:40] VITALS: BMI 28.5
[2018-06-17] MEDS ORDERED: Sodium Chloride 0.9% 1,000 ML IV ONE (20:17)
[2018-06-17 20:54] LABS: BASO # 0.1 K/uL (0.0-0.2); BASO % 1.3 % (0.0-2.0); EOS % 0.2 % (0.0-4.0); LYMPH # 1.3 K/uL (1.0-4.3); LYMPH % 18.3 % (20.0-40.0); MEAN CORPUSCULAR HGB CONC 34.6 g/dL (33.0-37.0); MEAN PLATELET VOLUME 7.4 fL (7.2-11.7); MONO # 0.7 K/uL (0.0-0.8); MONO % 9.7 % (0.0-10.0); NEUT # 5.1 K/uL (1.8-7.0); NEUT % 70.5 % (50.0-75.0); NRBC % 0.1 % (0.0-2.0); RBC 3.98 Mil/uL (4.40-5.90); RED CELL DISTRIBUTION WIDTH 15.6 % (11.5-14.5)
[2018-06-17] MEDS ORDERED: Sodium Chloride 0.9% 1,000 ML ONE (20:54)
[2018-06-17 20:56] LABS: HEMOGLOBIN 13.9 g/dL (12.0-18.0); MEAN CELL VOLUME 101.4 fL (80.0-94.0); WHITE BLOOD COUNT 7.2 K/uL (4.8-10.8)
[2018-06-17 21:12] LABS: ALB/GLOB RATIO 1.4 (1.0-2.1); ALBUMIN 4.6 g/dL (3.5-5.0); ALT/SGPT 9 U/L (21-72); AST/SGOT 80 U/L (17-59); BLOOD UREA NITROGEN 7 mg/dL (9-20); CALCIUM 9.1 mg/dl (8.6-10.4); GFR NON-AFRICAN AMERICAN > 60
[2018-06-17 21:17] LABS: B-TYPE NATRIURETIC PEPTIDE 104 pg/mL (0-900)
[2018-06-17 21:53] LABS: BARBITURATES, UR NEGATIVE (NEGATIVE); BENZODIAZEPINES, UR POSITIVE (NEGATIVE); OPIATES, UR NEGATIVE (NEGATIVE); PHENCYCLIDINE, UR NEGATIVE (NEGATIVE)
[2018-06-17 21:56] LABS: SQUAMOUS EPITHIAL < 1 /hpf (0-5)
[2018-06-17 22:01] LABS: URINE BILIRUBIN SMALL (NEGATIVE); URINE CLARITY CLEAR (Clear); URINE COLOR YELLOW (YELLOW); URINE GLUCOSE (UA) NEGATIVE (Normal)
[2018-06-17 22:02] LABS: URINE BLOOD NEGATIVE (NEGATIVE); URINE LEUKOCYTE ESTERASE NEGATIVE Leu/uL (Negative); URINE PROTEIN NEGATIVE (NEGATIVE)
--- NOTE | 2018-06-17 22:23 | C.PDOC ---
History Of Present Illness 62 year old male brought to ED via EMS for alcohol intoxication. Patient admits to feeling tremors and anxious. Patient was here for detox May 13 to . Patient relapsed drinking 2-4 pints of vodka approx 3 days after leaving Detox, "because ran out of Ativan." Patient used more than prescribed. Patient denies headache. <aJreth Vernon - Last Filed: 06/18/18 00:28> History Per: Patient History/Exam Limitations: None Onset/Duration Of Symptoms: Days (2) Associated Symptoms: Other (rapid tremors). denies: Headache <Jareth Vernon - Last Filed: 06/18/18 00:28> <Elsie Riggins - Last Filed: 06/18/18 02:13> Time Seen by Provider: 06/17/18 20:09 Chief Complaint (Nursing): Anxiety Past Medical History Reviewed: Historical Data, Nursing Documentation, Vital Signs Vital Signs: Last Vital Signs Temp 97.3 F L 06/17/18 19:03 Pulse 95 H 06/17/18 20:55 Resp 20 06/17/18 20:55 BP 114/68 06/17/18 20:55 Pulse Ox 99 06/17/18 20:55 - Medical History PMH: Anxiety, CVA, Depression, Diabetes, HTN, Hypothyroidism, Pancreatitis, Chronic Kidney Disease (Non dialysis), Seizures Denies: Hepatitis, HIV, Sexually Transmitted Disease - [facility] Procedures DETOXIFICATION SERVICES FOR SUBSTANCE ABUSE TREATMENT (05/13/18) EXCISION OF ASCENDING COLON, ENDO, DIAGN (05/03/18) EXCISION OF STOMACH, ENDO, DIAGN (05/03/18) GROUP PORT SURVEYOR FOR SUBSTANCE ABUSE TREATMENT, PSYCHOEDUCATION (05/13/18) GROUP PORT SURVEYOR FOR SUBSTANCE ABUSE, COGNITIVE BEHAVIORAL (05/13/18) GROUP PSYCHOTHERAPY (05/13/18) INDIV PSYCHOTHERAPY FOR SUBSTANCE ABUSE TREATMENT, SUPPORT (05/13/18) INDIV PSYCHOTHERAPY FOR SUBSTANCE ABUSE, COGNITIV BEHAVIORAL (05/13/18) INDIV PSYCHOTHERAPY FOR SUBSTANCE ABUSE, PSYCHOEDUCATION (05/13/18) INDIVIDUAL PSYCHOTHERAPY, COGNITIVE-BEHAVIORAL (05/13/18) INDIVIDUAL PSYCHOTHERAPY, SUPPORTIVE (05/13/18) INTRODUCTION OF SERUM/TOX/VACCINE INTO MUSCLE, PERC APPROACH (04/10/17) MEASURE OF CARDIAC SAMPL & PRESSURE, L HEART, PERC APPROACH (04/10/17) MEDICATION MANAGEMENT (10/04/17) PLAIN RADIOGRAPHY OF RIGHT AND LEFT HEART USING OTH CONTRAST (04/10/17) Family History: States: Unknown Family Hx - Social History Hx Alcohol Use: Yes Hx Substance Use: Yes - Immunization History Hx Tetanus Toxoid Vaccination: Yes Hx Influenza Vaccination: Yes Hx Pneumococcal Vaccination: Yes <Jareth Vernon - Last Filed: 06/18/18 00:28> Vital Signs: Last Vital Signs Temp 98.6 F 06/17/18 22:45 Pulse 89 06/18/18 02:04 Resp 16 06/18/18 02:04 BP 115/85 06/18/18 02:04 Pulse Ox 99 06/18/18 02:04 - [facility] Procedures DETOXIFICATION SERVICES FOR SUBSTANCE ABUSE TREATMENT (05/13/18) EXCISION OF ASCENDING COLON, ENDO, DIAGN (05/03/18) EXCISION OF STOMACH, ENDO, DIAGN (05/03/18) GROUP PORT SURVEYOR FOR SUBSTANCE ABUSE TREATMENT, PSYCHOEDUCATION (05/13/18) GROUP PORT SURVEYOR FOR SUBSTANCE ABUSE, COGNITIVE BEHAVIORAL (05/13/18) GROUP PSYCHOTHERAPY (05/13/18) INDIV PSYCHOTHERAPY FOR SUBSTANCE ABUSE TREATMENT, SUPPORT (05/13/18) INDIV PSYCHOTHERAPY FOR SUBSTANCE ABUSE, COGNITIV BEHAVIORAL (05/13/18) INDIV PSYCHOTHERAPY FOR SUBSTANCE ABUSE, PSYCHOEDUCATION (05/13/18) INDIVIDUAL PSYCHOTHERAPY, COGNITIVE-BEHAVIORAL (05/13/18) INDIVIDUAL PSYCHOTHERAPY, SUPPORTIVE (05/13/18) INTRODUCTION OF SERUM/TOX/VACCINE INTO MUSCLE, PERC APPROACH (04/10/17) MEASURE OF CARDIAC SAMPL & PRESSURE, L HEART, PERC APPROACH (04/10/17) MEDICATION MANAGEMENT (10/04/17) PLAIN RADIOGRAPHY OF RIGHT AND LEFT HEART USING OTH CONTRAST (04/10/17) <Elsie Riggins - Last Filed: 06/18/18 02:13> Review Of Systems Constitutional: Positive for: Sweats, Other (tremulous). Negative for: Fever, Chills, Weakness Cardiovascular: Negative for: Chest Pain Respiratory: Negative for: Cough, Shortness of Breath Gastrointestinal: Positive for: Vomiting, Abdominal Pain Neurological: Negative for: Weakness, Numbness, Dizziness Psych: Positive for: Anxiety <Jareth Vernon - Last Filed: 06/18/18 00:28> Physical Exam - Physical Exam Appears: Non-toxic, Other (sweaty, tremulous) Skin: Normal Color, Warm, Diaphoretic Head: Atraumatic, Normacephalic Neck: Normal ROM, Supple Chest: Symmetrical, No Deformity Cardiovascular: Rhythm Regular, Other (tachycardic) Respiratory: No Accessory Muscle Use Gastrointestinal/Abdominal: Soft, No Tenderness Extremity: Capillary Refill (<2 seconds) Neurological/Psych: Oriented x3, Normal Speech, Normal Cognition <Jareth Vernon - Last Filed: 06/18/18 00:28> ED Course And Treatment - Laboratory Results Result Diagrams: 06/17/18 20:46 06/17/18 20:46 Lab Results: NT-Pro-B Natriuret Pep 104 pg/mL (0-900) 06/17/18 20:46 Total Bilirubin 1.8 mg/dL (0.2-1.3) H 06/17/18 20:46 AST 80 U/L (17-59) H D 06/17/18 20:46 ALT 9 U/L (21-72) L D 06/17/18 20:46 Alkaline Phosphatase 94 U/L (38-126) 06/17/18 20:46 Total Protein 8.0 g/dL (6.3-8.3) 06/17/18 20:46 Albumin 4.6 g/dL (3.5-5.0) 06/17/18 20:46 Globulin 3.3 gm/dL (2.2-3.9) 06/17/18 20:46 Albumin/Globulin Ratio 1.4 (1.0-2.1) 06/17/18 20:46 Urine Color Yellow (YELLOW) 06/17/18 21:22 Urine Clarity Clear (Clear) 06/17/18 21:22 Urine pH 7.0 (5.0-8.0) 06/17/18 21:22 Ur Specific [place] 1.010 (1.003-1.030) 06/17/18 21:22 Urine Protein Negative mg/dL (NEGATIVE) 06/17/18 21:22 Urine Glucose (UA) Negative mg/dL (Normal) 06/17/18 21:22 Urine Ketones 15 mg/dL (NEGATIVE) 06/17/18 21:22 Urine Blood Negative (NEGATIVE) 06/17/18 21:22 Urine Nitrate Negative (NEGATIVE) 06/17/18 21:22 Urine Bilirubin Small (NEGATIVE) 06/17/18 21:22 Urine Urobilinogen 1.0 mg/dL (0.2-1.0) 06/17/18 21:22 Ur Leukocyte Esterase Negative Fanta/uL (Negative) 06/17/18 21:22 Urine WBC (Auto) 2 /hpf (0-5) 06/17/18 21:22 Urine RBC (Auto) < 1 /hpf (0-3) 06/17/18 21:22 Ur Squamous Epith Cells < 1 /hpf (0-5) 06/17/18 21:22 Lab Interpretation: Abnormal (etoh 13, tox + benzo, but given Ativan IV in ED prior to UA) O2 Sat by Pulse Oximetry: 99 (RA) Progress Note: Labs ordered with drug screen and UA. EKG and CXR ordered for patient. Patient given Ativan, Protonix IVP, and IV fluids. Reevaluation Time: 22:29 Reassessment Condition: Improved - Physician Consult Information Outcome Of Conversation: 2230: d/w Crisis, ok to Psych. 0000: Crisis advises pt plan to transfer to [facility] <Jareth Vernon E - Last Filed: 06/18/18 00:28> - Laboratory Results Result Diagrams: 06/17/18 20:46 06/17/18 20:46 Lab Results: NT-Pro-B Natriuret Pep 104 pg/mL (0-900) 06/17/18 20:46 Total Bilirubin 1.8 mg/dL (0.2-1.3) H 06/17/18 20:46 AST 80 U/L (17-59) H D 06/17/18 20:46 ALT 9 U/L (21-72) L D 06/17/18 20:46 Alkaline Phosphatase 94 U/L (38-126) 06/17/18 20:46 Total Protein 8.0 g/dL (6.3-8.3) 06/17/18 20:46 Albumin 4.6 g/dL (3.5-5.0) 06/17/18 20:46 Globulin 3.3 gm/dL (2.2-3.9) 06/17/18 20:46 Albumin/Globulin Ratio 1.4 (1.0-2.1) 06/17/18 20:46 Urine Color Yellow (YELLOW) 06/17/18 21:22 Urine Clarity Clear (Clear) 06/17/18 21:22 Urine pH 7.0 (5.0-8.0) 06/17/18 21:22 Ur Specific [place] 1.010 (1.003-1.030) 06/17/18 21:22 Urine Protein Negative mg/dL (NEGATIVE) 06/17/18 21:22 Urine Glucose (UA) Negative mg/dL (Normal) 06/17/18 21:22 Urine Ketones 15 mg/dL (NEGATIVE) 06/17/18 21:22 Urine Blood Negative (NEGATIVE) 06/17/18 21: Urine Nitrate Negative (NEGATIVE) 06/17/18 21: Urine Bilirubin Small (NEGATIVE) 06/17/18 21:22 Urine Urobilinogen 1.0 mg/dL (0.2-1.0) 06/17/18 21:22 Ur Leukocyte Esterase Negative Fanta/uL (Negative) 06/17/18 21:22 Urine WBC (Auto) 2 /hpf (0-5) 06/17/18 21:22 Urine RBC (Auto) < 1 /hpf (0-3) 06/17/18 21:22 Ur Squamous Epith Cells < 1 /hpf (0-5) 06/17/18 21:22 ECG: Interpreted By Me, Viewed By Me ECG Rhythm: Sinus Rhythm (84), Nonspecific Changes Pulse Ox Interpretation: Normal - Radiology CXR: Interpreted by Me, Viewed By Me CXR Interpretation: No: Infiltrates, Fracture, Pnemothorax <Elsei Riggins - Last Filed: 06/18/18 02:13> Medical Decision Making Medical Decision Making: persistent alcohol abuse and depression, failed etoh detox from 05/13- 0000: pending transfer to [facility] <Jareth Vernon E - Last Filed: 06/18/18 00:28> Disposition Doctor Will See Patient In The: Hospital Counseled Patient/Family Regarding: Studies Performed, Diagnosis - Disposition Disposition Time: 22:30 <Jareth Vernon - Last Filed: 06/18/18 00:28> <Elsie Riggins - Last Filed: 06/18/18 02:13> - Disposition Disposition: Trans to Other Acute Care Hosp Condition: GOOD Forms: [facility] (Hebrew) - Clinical Impression Clinical Impression: Mixed anxiety depressive disorder, Alcohol use disorder - Scribe Statement The provider has reviewed the documentation as recorded by the Scribe (Elva Briceno) All medical record entries made by the Scribe were at my direction and personally dictated by me. I have reviewed the chart and agree that the record accurately reflects my personal performance of the history, physical exam, medical decision making, and the department course for this patient. I have also personally directed, reviewed, and agree with the discharge instructions and disposition. <Jareth Vernon E - Last Filed: 06/18/18 00:28> Physician Patient Turnover Patient Signed Over To: Elsie Riggins Handoff Comments: pending transfer to [facility] <Jareth Vernon E - Last Filed: 06/18/18 00:28>
--- NOTE | 2018-06-18 08:29 | RAD ---
Date of service: 06/17/2018 PROCEDURE: CHEST RADIOGRAPH, 1 VIEW HISTORY: SOB COMPARISON: None available. FINDINGS: LUNGS: The lungs are well inflated and clear. PLEURA: No pneumothorax or pleural effusion. CARDIOVASCULAR: The heart is normal in size. No aortic atherosclerotic calcifications present. OSSEOUS STRUCTURES: There are multiple old fracture deformities in the right posterolateral ribs. VISUALIZED UPPER ABDOMEN: Normal. OTHER FINDINGS: None. IMPRESSION: No active pulmonary disease.
[2018-06-18 08:30] VITALS: BP 132/85; PULSE 78; RESP 18; O2SAT 97
[2018-06-18 08:33] VITALS: TEMP 98.1
== END 2018-06-18 09:00 | disposition designated cancer center or children's hospital (05) ==
LOC: C.ER 18:40 → UNDOADMIN 22:27 → C.5E 22:27
DX: F10.129 Alcohol abuse with intoxication, unspecified (principal); Y90.0 Blood alcohol level of less than 20 mg/100 ml; F32.9 Major depressive disorder, single episode, unspecified
CPT/HCPCS: 71045; 80053; 81001; 83880; 85025; 93005; 96361; 96374; 96375; 99285; C9113; G0480; J2060; J7030

== ENCOUNTER 2018-06-30 14:48 | Inpatient (IN) | payer MEDICARE ==
[2018-06-30 14:49] VITALS: BMI 28.5
[2018-06-30] MEDS ORDERED: Multivitamin (MVI) 10 ML, Thiamine 100 MG, Folic Acid 1 MG in Sodium Chloride 0.9% 1,00... IV STA (14:59)
[2018-06-30 15:23] LABS: BASO # 0.1 K/uL (0.0-0.2); BASO % 1.2 % (0.0-2.0); EOS % 0.3 % (0.0-4.0); LYMPH # 0.9 K/uL (1.0-4.3); LYMPH % 13.7 % (20.0-40.0); MEAN CELL VOLUME 100.8 fL (80.0-94.0); MEAN CORPUSCULAR HEMOGLOBIN 35.4 pg (27.0-31.0); MEAN CORPUSCULAR HGB CONC 35.1 g/dL (33.0-37.0); MEAN PLATELET VOLUME 7.3 fL (7.2-11.7); MONO # 0.6 K/uL (0.0-0.8); MONO % 8.3 % (0.0-10.0); NEUT # 5.1 K/uL (1.8-7.0); NEUT % 76.5 % (50.0-75.0); NRBC % 0.1 % (0.0-2.0); RBC 3.4 Mil/uL (4.40-5.90); RED CELL DISTRIBUTION WIDTH 15.9 % (11.5-14.5); WHITE BLOOD COUNT 6.7 K/uL (4.8-10.8)
[2018-06-30 16:06] LABS: ALB/GLOB RATIO 1.3 (1.0-2.1); ALT/SGPT 38 U/L (21-72); AST/SGOT 99 U/L (17-59); BLOOD UREA NITROGEN 12 mg/dL (9-20); CALCIUM 8.8 mg/dl (8.6-10.4); GFR NON-AFRICAN AMERICAN > 60
[2018-06-30 16:53] LABS: SQUAMOUS EPITHIAL < 1 /hpf (0-5); URINE BACTERIA RARE (<OCC); URINE BILIRUBIN NEGATIVE (NEGATIVE); URINE BLOOD NEGATIVE (NEGATIVE); URINE CLARITY Clear (Clear); URINE COLOR Yellow (YELLOW); URINE GLUCOSE (UA) NORMAL (Normal); URINE HYALINE CAST 0-2 /lpf (0-2); URINE LEUKOCYTE ESTERASE NEG Leu/uL (Negative); URINE PROTEIN 1+ mg/dL (NEGATIVE)
[2018-06-30 17:02] LABS: BARBITURATES, UR NEGATIVE (NEGATIVE); OPIATES, UR NEGATIVE (NEGATIVE); PHENCYCLIDINE, UR NEGATIVE (NEGATIVE)
[2018-06-30 17:10] LABS: BENZODIAZEPINES, UR POSITIVE (NEGATIVE)
[2018-06-30 18:01] LABS: CK-MB 0.68 ng/mL (0.0-3.38)
--- NOTE | 2018-06-30 18:05 | C.PDOC ---
History Of Present Illness 62 year old male with a history of depression and alcohol abuse presents to the emergency department with complaints of alcohol withdrawal. Patient has many prior admissions and evaluations for the same complaint. Patient reports that his last drink was yesterday and he currently complains of panicking and shaking. Patient also reports chest discomfort. Time Seen by Provider: 06/30/18 14:57 Chief Complaint (Nursing): Anxiety History Per: Patient History/Exam Limitations: no limitations Onset/Duration Of Symptoms: Hrs Current Symptoms Are (Timing): Still Present Suicide/Self Injury Attempted (Context): None Modifying Factor(s): Alcohol Associated Symptoms: Other (panicking, shaking, chest discomfort) Past Medical History Reviewed: Historical Data, Nursing Documentation, Vital Signs Vital Signs: Last Vital Signs Temp 98.2 F 06/30/18 14:50 Pulse 72 06/30/18 17:55 Resp 18 06/30/18 17:55 BP 137/75 06/30/18 17:55 Pulse Ox 96 06/30/18 17:55 - Medical History PMH: Anxiety, Arthritis, CVA, Depression, Diabetes, HTN, Hypothyroidism, Pancrea titis, Chronic Kidney Disease (Non dialysis), Seizures Denies: Hepatitis, HIV, Sexually Transmitted Disease Surgical History: No Surg Hx - [facility] Procedures DETOXIFICATION SERVICES FOR SUBSTANCE ABUSE TREATMENT (05/13/18) EXCISION OF ASCENDING COLON, ENDO, DIAGN (05/03/18) EXCISION OF STOMACH, ENDO, DIAGN (05/03/18) GROUP BUILDINGS AND GROUNDS DIRECTOR FOR SUBSTANCE ABUSE TREATMENT, PSYCHOEDUCATION (05/13/18) GROUP BUILDINGS AND GROUNDS DIRECTOR FOR SUBSTANCE ABUSE, COGNITIVE BEHAVIORAL (05/13/18) GROUP PSYCHOTHERAPY (06/18/18) INDIV PSYCHOTHERAPY FOR SUBSTANCE ABUSE TREATMENT, SUPPORT (05/13/18) INDIV PSYCHOTHERAPY FOR SUBSTANCE ABUSE, COGNITIV BEHAVIORAL (06/18/18) INDIV PSYCHOTHERAPY FOR SUBSTANCE ABUSE, PSYCHOEDUCATION (05/13/18) INDIVIDUAL PSYCHOTHERAPY, COGNITIVE-BEHAVIORAL (06/18/18) INDIVIDUAL PSYCHOTHERAPY, SUPPORTIVE (05/13/18) INTRODUCTION OF SERUM/TOX/VACCINE INTO MUSCLE, PERC APPROACH (04/10/17) MEASURE OF CARDIAC SAMPL & PRESSURE, L HEART, PERC APPROACH (04/10/17) MEDICATION MANAGEMENT (10/04/17) PLAIN RADIOGRAPHY OF RIGHT AND LEFT HEART USING OTH CONTRAST (04/10/17) Family History: States: Unknown Family Hx - Social History Hx Alcohol Use: Yes (last drink yesterday) Hx Substance Use: No - Immunization History Hx Tetanus Toxoid Vaccination: No Hx Influenza Vaccination: No Hx Pneumococcal Vaccination: Yes Review Of Systems Except As Marked, All Systems Reviewed And Found Negative. Constitutional: Negative for: Fever, Chills Cardiovascular: Positive for: Chest Pain Respiratory: Negative for: Cough, Shortness of Breath Gastrointestinal: Negative for: Nausea, Vomiting, Diarrhea Psych: Positive for: Withdrawal Physical Exam - Physical Exam Appears: Non-toxic, In Acute Distress, Other (tremulous, anxious) Skin: Warm, Dry Head: Atraumatic, Normacephalic Eye(s): bilateral: Normal Inspection, PERRL, EOMI Nose: Normal Oral Mucosa: Moist Neck: Normal, Supple Chest: Symmetrical, No Tenderness Cardiovascular: Rhythm Regular, No Murmur Respiratory: Normal Breath Sounds, No Rales, No Rhonchi, No Wheezing Gastrointestinal/Abdominal: Soft, No Tenderness Extremity: Normal ROM Neurological/Psych: Oriented x3, Normal Speech, Normal Cognition ED Course And Treatment - Laboratory Results Result Diagrams: 06/30/18 15:14 06/30/18 15:14 Lab Results: Total Bilirubin 1.5 mg/dL (0.2-1.3) H 06/30/18 15:14 AST 99 U/L (17-59) H D 06/30/18 15:14 ALT 38 U/L (21-72) 06/30/18 15:14 Alkaline Phosphatase 78 U/L (38-126) 06/30/18 15:14 Total Protein 7.2 g/dL (6.3-8.3) 06/30/18 15:14 Albumin 4.0 g/dL (3.5-5.0) 06/30/18 15:14 Globulin 3.1 gm/dL (2.2-3.9) 06/30/18 15:14 Albumin/Globulin Ratio 1.3 (1.0-2.1) 06/30/18 15:14 Urine Color Yellow (YELLOW) 06/30/18 16:37 Urine Clarity Clear (Clear) 06/30/18 16:37 Urine pH 6.0 (5.0-8.0) 06/30/18 16:37 Ur Specific [place] 1.017 (1.003-1.030) 06/30/18 16:37 Urine Protein 1+ mg/dL (NEGATIVE) H 06/30/18 16:37 Urine Glucose (UA) Normal mg/dL (Normal) 06/30/18 16:37 Urine Ketones Negative mg/dL (NEGATIVE) 06/30/18 16:37 Urine Blood Negative (NEGATIVE) 06/30/18 16:37 Urine Nitrate Negative (NEGATIVE) 06/30/18 16:37 Urine Bilirubin Negative (NEGATIVE) 06/30/18 16:37 Urine Urobilinogen 2.0 mg/dL (0.2-1.0) 06/30/18 16:37 Ur Leukocyte Esterase Neg Fanta/uL (Negative) 06/30/18 16:37 Urine WBC (Auto) < 1 /hpf (0-5) 06/30/18 16:37 Urine RBC (Auto) < 1 /hpf (0-3) 06/30/18 16:37 Ur Squamous Epith Cells < 1 /hpf (0-5) 06/30/18 16:37 Urine Bacteria Rare (<OCC) 06/30/18 16:37 Hyaline Casts 0-2 /lpf (0-2) 06/30/18 16:37 ECG: Interpreted By Me, Viewed By Me Interpretation Of ECG: Normal sinus rhythm at 74bpm. ST abnormalities in anterior leads. O2 Sat by Pulse Oximetry: 96 (RA) Pulse Ox Interpretation: Normal Medical Decision Making Medical Decision Making: Plan: EKG Chemistry CBC CXR Glucose POC Ativan 1mg IVP Librium 50mg PO NaCl IV Fluids Urinalysis Labs and drug screen were positive for cocaine, Troponin was added and neg. Patient will be hospitalized for alcohol withdrawal, chest pain, and cocaine abuse. Case was d/w who accepted patient to tele. Disposition - Disposition Disposition: HOSPITALIZED Disposition Time: 18:12 Condition: FAIR Forms: [facility] (Lao) - Clinical Impression Clinical Impression: Alcohol withdrawal, Chest pain, Cocaine abuse - PA / SALES ADVISOR / Resident Statement MD/DO has reviewed & agrees with the documentation as recorded. - Scribe Statement The provider has reviewed the documentation as recorded by the Scribe (Marlon Alfaro) All medical record entries made by the Scribe were at my direction and personally dictated by me. I have reviewed the chart and agree that the record accurately reflects my personal performance of the history, physical exam, medical decision making, and the department course for this patient. I have also personally directed, reviewed, and agree with the discharge instructions and disposition. Decision To Admit - Pt Status Changed To: Hospital Disposition Of: Inpatient - Admit Certification Admit to Inpatient:: After my assessment, the patient will require hospitalizati on for at least two midnights. This is because of the severity of symptoms shown, intensity of services needed, and/or the medical risk in this patient being treated as an outpatient. - InPatient: Physician Admission Certification: I certify that this patient requires 2 or more midnights of care for the following reason:: Patient christy need more than 2 days of hospitalization - . Bed Request Type: Telemetry Admitting Physician: Jorgito Cruz Patient Diagnosis: Alcohol withdrawal, Chest pain, Cocaine abuse
--- NOTE | 2018-06-30 18:29 | RAD ---
Date of service: 06/30/2018 PROCEDURE: CHEST RADIOGRAPH, 1 VIEW HISTORY: Detox/Psy COMPARISON: 06/17/2018 FINDINGS: LUNGS: Clear. PLEURA: No pneumothorax or pleural fluid seen. CARDIOVASCULAR: No aortic atherosclerotic calcification present. Normal. OSSEOUS STRUCTURES: No significant abnormalities. VISUALIZED UPPER ABDOMEN: Normal. OTHER FINDINGS: None. IMPRESSION: No active disease.
--- NOTE | 2018-07-01 11:29 | CARD ---
APPROVED REPORT Date of service: 06/30/2018 EKG Measurement Heart [id number] MN [id number] <Conclusion> Normal sinus rhythm Cannot rule out Anterior infarct, age undetermined Abnormal ECG
--- NOTE | 2018-07-01 11:35 | CP.PCM.HP ---
<Jovani De Jesus - Last Filed: 07/01/18 18:10> History of Present Illness - History of Present Illness History of Present Illness: PGY1 Medicine H and P for Dr. 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 Pt states that these symptoms started yesterday. He states the chest pain has now resolved, and but was characterized as midsternal stabbing, nonradiating, associated with feeling like his heart is racing and some left arm numbness. Pt reports that he feels very anxious and would like to be in the detox unit. Denies fever, chills, headache, abdominal pain, n/v/d. He also reports that he fell 2 days ago after drinking, denies head pain, blurry vision, somnolence, back pain, neck pain, saddle anesthesia, erectile dysfunction. Last drink was 4 am 06/30/18. 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 lives with GF. Drinks 1/2 gallon of vodka per for many years, denies smoking history. Occasional cocaine use, IVDA quit 7 years ago Mother with lung cancer diagnosed in her mid 70s. Colonoscopy 1 month ago which has 1 polyp removed. Present on Admission - Present on Admission Any Indicators Present on Admission: No Review of Systems - Review of Systems All systems: reviewed and no additional remarkable complaints except (as per HPI) Past Patient History - Infectious Disease Hx of Infectious Diseases: None - Past Medical History & Family History Past Medical History?: Yes - Past Social History Smoking Status: Never Smoked - CARDIAC Hx Cardiac Disorders: Yes Hx Hypertension: Yes - PULMONARY Hx Respiratory Disorders: No Hx Tuberculosis: (Patient denied) - NEUROLOGICAL Hx Neurological Disorder: Yes Hx Seizures: Yes - HEENT Hx HEENT Problems: No - RENAL Hx Chronic Kidney Disease: Yes (Non dialysis) - ENDOCRINE/METABOLIC Hx Endocrine Disorders: Yes Hx Hypothyroidism: Yes - HEMATOLOGICAL/ONCOLOGICAL Hx Blood Disorders: No Hx Human Immunodeficiency Virus (HIV): No - INTEGUMENTARY Hx Dermatological Problems: No - MUSCULOSKELETAL/RHEUMATOLOGICAL Hx Musculoskeletal Disorders: Yes Hx Arthritis: Yes Hx Falls: Yes - GASTROINTESTINAL Hx Gastrointestinal Disorders: Yes Hx Pancreatitis: Yes - GENITOURINARY/GYNECOLOGICAL Hx Genitourinary Disorders: No Hx Sexually Transmitted Disorders: No - PSYCHIATRIC Hx Psychophysiologic Disorder: Yes Hx Anxiety: Yes Hx Depression: Yes Hx Substance Use: Yes (cocaine) - SURGICAL HISTORY Hx Surgeries: Yes Hx Joint Replacement: Yes (Hip replacement x 3, knee replacement x 2) Hx Musculoskeletal Surgery: Yes - ANESTHESIA Hx Anesthesia: Yes Hx Anesthesia Reactions: No Hx Malignant Hyperthermia: No Has any member of the family had a problem w/ anesthesia?: No Meds Allergies/Adverse Reactions: Allergies Allergy/AdvReac Type Severity Reaction Status Date / Time iodine Allergy RASH Verified 06/30/18 14:56 Penicillins Allergy Verified 06/30/18 14:56 Physical Exam - Constitutional Appears: Non-toxic, No Acute Distress - Head Exam Head Exam: NORMAL INSPECTION. absent: ATRAUMATIC (approximatley 2 inch laceration to the occipatal scalp, nontender, dried blood no active bleeding) - Eye Exam Eye Exam: EOMI, PERRL - ENT Exam ENT Exam: Mucous Membranes Dry - Neck Exam Neck exam: Positive for: Normal Inspection - Respiratory Exam Respiratory Exam: Clear to Auscultation Bilateral. absent: Rales, Rhonchi, Wheezes, Respiratory Distress - Cardiovascular Exam Cardiovascular Exam: REGULAR RHYTHM, +S1, +S2 - GI/Abdominal Exam GI & Abdominal Exam: Normal Bowel Sounds, Soft. absent: Distended, Firm, Guarding, Rebound, Rigid, Tenderness - Extremities Exam Extremities exam: Positive for: normal inspection, pedal pulses present. Negative for: calf tenderness Additional comments: tremors in outstretch hands - Back Exam Back exam: NORMAL INSPECTION - Neurological Exam Neurological exam: Alert, CN II-XII Intact, Oriented x3 - Psychiatric Exam Psychiatric exam: Anxious, Normal Affect, Normal Mood - Skin Skin Exam: Dry, Normal Color, Warm Results - Vital Signs Recent Vital Signs: Last Vital Signs Temp 97.7 F 07/01/18 07:25 Pulse 76 07/01/18 10:00 Resp 20 07/01/18 07:25 BP 136/83 07/01/18 07:25 Pulse Ox 99 07/01/18 07:25 - Labs Result Diagrams: 07/01/18 14:03 07/01/18 14:03 Labs: Laboratory Results - last 24 hr 06/30/18 06/30/18 06/30/18 14:51 14:54 15:14 WBC 6.7 RBC 3.40 L Hgb 12.0 Hct 34.3 L MCV 100.8 H MCH 35.4 H MCHC 35.1 RDW 15.9 H Plt Count 432 H D MPV 7.3 Neut % (Auto) 76.5 H Lymph % (Auto) 13.7 L Webb % (Auto) 8.3 Eos % (Auto) 0.3 Baso % (Auto) 1.2 Neut # (Auto) 5.1 Lymph # (Auto) 0.9 L Webb # (Auto) 0.6 Eos # (Auto) 0.0 Baso # (Auto) 0.1 Sodium Potassium Chloride Carbon Dioxide Anion Gap BUN Creatinine Est GFR ( Amer) Est GFR (Non-Af Amer) POC Glucose (mg/dL) 64 L 66 Random Glucose Calcium Phosphorus Magnesium Total Bilirubin AST ALT Alkaline Phosphatase Total Creatine Kinase CK-MB (Mass) Troponin I Total Protein Albumin Globulin Albumin/Globulin Ratio Urine Color Urine Clarity Urine pH Ur Specific Rock Urine Protein Urine Glucose (UA) Urine Ketones Urine Blood Urine Nitrate Urine Bilirubin Urine Urobilinogen Ur Leukocyte Esterase Urine WBC (Auto) Urine RBC (Auto) Ur Squamous Epith Cells Urine Bacteria Hyaline Casts Urine Opiates Screen Urine Methadone Screen Ur Barbiturates Screen Ur Phencyclidine Scrn Ur Amphetamines Screen U Benzodiazepines Scrn U Oth Cocaine Metabols U Cannabinoids Screen Alcohol, Quantitative 06/30/18 06/30/18 06/30/18 15:14 15:14 16:37 WBC RBC Hgb Hct MCV MCH MCHC RDW Plt Count MPV Neut % (Auto) Lymph % (Auto) Webb % (Auto) Eos % (Auto) Baso % (Auto) Neut # (Auto) Lymph # (Auto) Webb # (Auto) Eos # (Auto) Baso # (Auto) Sodium 134 Potassium 4.0 Chloride 102 Carbon Dioxide 18 L Anion Gap 18 BUN 12 Creatinine 0.8 Est GFR ( Amer) > 60 Est GFR (Non-Af Amer) > 60 POC Glucose (mg/dL) Random Glucose 75 D Calcium 8.8 Phosphorus 2.5 Magnesium 1.4 L Total Bilirubin 1.5 H AST 99 H D ALT 38 Alkaline Phosphatase 78 Total Creatine Kinase 48 L CK-MB (Mass) 0.68 Troponin I < 0.0120 Total Protein 7.2 Albumin 4.0 Globulin 3.1 Albumin/Globulin Ratio 1.3 Urine Color Yellow Urine Clarity Clear Urine pH 6.0 Ur Specific Rock 1.017 Urine Protein 1+ H Urine Glucose (UA) Normal Urine Ketones Negative Urine Blood Negative Urine Nitrate Negative Urine Bilirubin Negative Urine Urobilinogen 2.0 Ur Leukocyte Esterase Neg Urine WBC (Auto) < 1 Urine RBC (Auto) < 1 Ur Squamous Epith Cells < 1 Urine Bacteria Rare Hyaline Casts 0-2 Urine Opiates Screen Urine Methadone Screen Ur Barbiturates Screen Ur Phencyclidine Scrn Ur Amphetamines Screen U Benzodiazepines Scrn U Oth Cocaine Metabols U Cannabinoids Screen Alcohol, Quantitative < 10 06/30/18 16:37 WBC RBC Hgb Hct MCV MCH MCHC RDW Plt Count MPV Neut % (Auto) Lymph % (Auto) Webb % (Auto) Eos % (Auto) Baso % (Auto) Neut # (Auto) Lymph # (Auto) Webb # (Auto) Eos # (Auto) Baso # (Auto) Sodium Potassium Chloride Carbon Dioxide Anion Gap BUN Creatinine Est GFR ( Amer) Est GFR (Non-Af Amer) POC Glucose (mg/dL) Random Glucose Calcium Phosphorus Magnesium Total Bilirubin AST ALT Alkaline Phosphatase Total Creatine Kinase CK-MB (Mass) Troponin I Total Protein Albumin Globulin Albumin/Globulin Ratio Urine Color Urine Clarity Urine pH Ur Specific Rock Urine Protein Urine Glucose (UA) Urine Ketones Urine Blood Urine Nitrate Urine Bilirubin Urine Urobilinogen Ur Leukocyte Esterase Urine WBC (Auto) Urine RBC (Auto) Ur Squamous Epith Cells Urine Bacteria Hyaline Casts Urine Opiates Screen Negative Urine Methadone Screen Negative Ur Barbiturates Screen Negative Ur Phencyclidine Scrn Negative Ur Amphetamines Screen Negative U Benzodiazepines Scrn Positive U Oth Cocaine Metabols Positive H U Cannabinoids Screen Negative Alcohol, Quantitative Assessment & Plan - Assessment and Plan (Free Text) Assessment: This is a 62 year old male with PMH of etoh abuse with seizures (on keppra 500 mg po bid)/withdrawals in the past, anxiety, depression, 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 Plan: EtOH/BZD withdrawal EtOH abuse EtOH less than 10 on admission Librium taper Ativan 1 mg IV q4h prn withdrawal symptoms Aspiration, seizure precautions neurochecks q4 h CIQA protocol MV, Folate 1 mg PO daily, Thiamine 100 mg PO daily NS IVF at [address] diop, Detox, consulted. Recs appreciated Chest pain, resolved Troponin x2 is negative EKG is normal Likely secondary to etoh/bzd withdrawal Head laceration, secondary to fall Head CT shows no acute changes F/u lumbar x-ray Pt on neurochecks Hypomagnesemia Mg 1.4 repleted with Mg IVPB x 1 g Hx of Seizures Continue home keppra 500 mg PO BID Precautions as above Polysubstance abuse UDS positive for cocaine metabolites AVOID beta blockers Pt counselled on drug use and their negative affects on the body. Detox eval pending. Hx of CVA x2 ASA 81 mg PO daily Crestor 20 mg PO QHS Hx of hypothyroidism F/u TSH, T4 in am Levothyroxine 50 mcg Macrocytic anemia Hg is 12, MCV is 102.4 Likely secondary to etoh abuse Pt on folate F/u Vitb12 PPx: Protonix 40 mg PO daily SCDs, Heparin 5000 sc q12 PT/OT Case discussed with Dr. Dooley <Azucena Dooley V - Last Filed: 07/01/18 20:21> Results - Vital Signs Recent Vital Signs: Last Vital Signs Temp 99.3 F 07/01/18 15:00 Pulse 75 07/01/18 18:00 Resp 20 07/01/18 15:00 BP 129/79 07/01/18 15:00 Pulse Ox 96 07/01/18 15:00 - Labs Result Diagrams: 07/01/18 14:03 07/01/18 14:03 Labs: Laboratory Results - last 24 hr 07/01/18 07/01/18 14:03 14:03 WBC 5.8 RBC 3.25 L Hgb 11.4 L Hct 33.3 L MCV 102.4 H MCH 35.1 H MCHC 34.3 RDW 15.7 H Plt Count 381 MPV 7.8 Neut % (Auto) 78.0 H Lymph % (Auto) 12.2 L Webb % (Auto) 7.9 Eos % (Auto) 0.5 Baso % (Auto) 1.4 Neut # (Auto) 4.6 Lymph # (Auto) 0.7 L Webb # (Auto) 0.5 Eos # (Auto) 0.0 Baso # (Auto) 0.1 Sodium 134 Potassium 3.9 Chloride 101 Carbon Dioxide 28 Anion Gap 10 BUN 11 Creatinine 0.7 L Est GFR ( Amer) > 60 Est GFR (Non-Af Amer) > 60 Random Glucose 130 H D Calcium 8.5 L Phosphorus 2.8 Magnesium 1.4 L Total Bilirubin 1.7 H AST 94 H ALT 51 Alkaline Phosphatase 74 Total Creatine Kinase 34 L CK-MB (Mass) 0.34 Troponin I < 0.0120 Total Protein 6.7 Albumin 3.5 Globulin 3.2 Albumin/Globulin Ratio 1.1 Attending/Attestation - Attestation I have personally seen and examined this patient.: Yes I have fully participated in the care of the patient.: Yes I have reviewed all pertinent clinical information: Yes Notes (Text): This is a 62-year-old male with past medical history including alcohol abuse, prior history of seizures up until 10 years has been dependent on Keppra, anxiety, depression, prior history of 2 strokes without residual weakness as well as hypertension and hypothyroidism as well as benzo dependence reports Ativan for at least 2 years and insomnia wherein he reports he uses Ambien. Patient is reporting primarily palpitations as well as withdrawals is consistent with both alcohol and a possible benzo withdrawal. Patient admits that he does he is aware that he has alcohol abuse and misuse history. He reports he has been to rehab multiple times as well as to detox. He also notes that with his overwhelming anxiety that he chronically needs to use Ativan I did explain to h im that the Ativan may not be a long-acting option for him for his anxiety I also did indicate to him with long-term alcohol use it is detrimental to many organs in the body including but not limited to the liver and of the liver is not working medications, use of anxiety such as Ativan will not be properly broken down and can lead to toxic effects on the body. He does report recently his last drink was about 2 days ago we will continue to monitor him for withdrawal symptoms. Patient also noted that while he was with friends he will likely use cocaine but he reports he has been prior sober for about 8 years. Admitting orders discussed with resident today. Informed about admission this morning by day-time nurse. 1. Alcohol withdrawal Alcohol abuse Assessment/plan * Patient received banana bag on admission * Librium taper * Ativan 1 mg IV every 4 as needed for seizure activity only * Psychiatry consulted for possible detox admission * Thiamine, folic acid, multivitamin * Monitor on telemetry 2. Palpitations Assessment/plan * Check cardiac enzymes initial troponin from yesterday is negative * Likely this is secondary to alcohol withdrawal and/or benzo withdrawal * Noted patient does have cardiac risk factors including hypertension, cocaine use * Chest xray (06/30/18): no active disease 3. Seizure disorder Assessment/plan * Noted etiology unclear he does report that he may have had an EEG done as long as 10 years ago but does report co-commitment alcoholic use and reports he has been on Keppra for quite some time * We will continue Keppra * Neurochecks every 4 seizure precautions 4. Prior history of stroke Assessment/plan * Continue aspirin 80 mg once a day * Continue Statin 5. Hypertension Assessment/plan * Patient is currently not on any antihypertensives * We will continue to monitor vital signs 6. History of hypothyroidism Assessment/plan * Continue Synthroid 50 every morning check TSH and free T4 in the morning 7. History of fatty liver Assessment/plan * abdominal ultrasound from May 05, 2018 8. History of Prior Fall Assessment/plan * CT head no acute intra-abdominal abnormality. Moderate chronic microangiopathic changes and age-related global parenchymal volume loss. * Fall precautions * Physical therapy eval * Lumbar xray * No saddle anesthesia, no issues with erection no sensation difference. Does have a contusion noted over the mid thoracic lumbar spine around T11 no pain upon palpation 9. Cocaine use Assessment/plan * Counseled about the adverse effects associate with cocaine use but not limited to cardiac arrhythmia cardiac arrest. 10. Prophylactic measure * seziure precautions * Neurochecks * Fall precautions * monitor on telemtry * DVT ppx * GI ppx
[2018-07-01] MEDS: Multiple Vitamins Tab PO SCH (12:05)
--- NOTE | 2018-07-01 12:56 | CT ---
Date of service: 07/01/2018 PROCEDURE: CT HEAD WITHOUT CONTRAST. HISTORY: s/p fall COMPARISON: None available. TECHNIQUE: Axial computed tomography images were obtained through the head/brain without intravenous contrast. Radiation dose: Total exam DLP = 1078.34 mGy-cm. This CT exam was performed using one or more of the following dose reduction techniques: Automated exposure control, adjustment of the mA and/or kV according to patient size, and/or use of iterative reconstruction technique. FINDINGS: HEMORRHAGE: No intracranial hemorrhage. BRAIN: There are moderate chronic microangiopathic changes. There is no mass, mass effect or abnormal extra-axial fluid collection. There is no territorial infarction. The midline sagittal structures are normal. VENTRICLES: There is mild age-related global parenchymal volume loss and proportionate enlargement of the ventricles and cortical sulci. CALVARIUM: There is no calvarial fracture or extracranial soft tissue swelling. PARANASAL SINUSES: Predominantly clear. MASTOID AIR CELLS: Predominantly clear. OTHER FINDINGS: None. IMPRESSION: No acute intracranial abnormality. Moderate chronic microangiopathic changes and mild age-related global parenchymal volume loss.
[2018-07-01 14:12] LABS: BASO # 0.1 K/uL (0.0-0.2); BASO % 1.4 % (0.0-2.0); EOS % 0.5 % (0.0-4.0); HEMOGLOBIN 11.4 g/dL (12.0-18.0); LYMPH # 0.7 K/uL (1.0-4.3); LYMPH % 12.2 % (20.0-40.0); MEAN CELL VOLUME 102.4 fL (80.0-94.0); MEAN CORPUSCULAR HEMOGLOBIN 35.1 pg (27.0-31.0); MEAN CORPUSCULAR HGB CONC 34.3 g/dL (33.0-37.0); MEAN PLATELET VOLUME 7.8 fL (7.2-11.7); MONO # 0.5 K/uL (0.0-0.8); MONO % 7.9 % (0.0-10.0); NEUT # 4.6 K/uL (1.8-7.0); NRBC % 0.1 % (0.0-2.0); RBC 3.25 Mil/uL (4.40-5.90); RED CELL DISTRIBUTION WIDTH 15.7 % (11.5-14.5); WHITE BLOOD COUNT 5.8 K/uL (4.8-10.8)
[2018-07-01 14:36] LABS: ALB/GLOB RATIO 1.1 (1.0-2.1); ALBUMIN 3.5 g/dL (3.5-5.0); ALT/SGPT 51 U/L (21-72); AST/SGOT 94 U/L (17-59); BLOOD UREA NITROGEN 11 mg/dL (9-20); CALCIUM 8.5 mg/dl (8.6-10.4); GFR NON-AFRICAN AMERICAN > 60
[2018-07-01 14:38] LABS: CK-MB 0.34 ng/mL (0.0-3.38)
[2018-07-01] MEDS: Magnesium Sulfate 1 gm in D5W 1 GM/100 ML BAG IVPB SCH ×2 (14:53→15:01)
[2018-07-01] MEDS: Pantoprazole 40 mg EC Tab PO SCH (15:01)
[2018-07-01] MEDS: Sodium Chloride 0.9% 1,000 ML IV SCH (17:05)
[2018-07-02] MEDS: Sodium Chloride 0.9% 1,000 ML IV SCH ×3 (02:51→12:37)
[2018-07-02] MEDS: Levothyroxine 50 MCG TAB PO SCH (06:14)
[2018-07-02 09:07] LABS: ALB/GLOB RATIO 1.1 (1.0-2.1); ALBUMIN 3.2 g/dL (3.5-5.0); ALT/SGPT 37 U/L (21-72); AST/SGOT 69 U/L (17-59); BLOOD UREA NITROGEN 7 mg/dL (9-20); CALCIUM 8.2 mg/dl (8.6-10.4); GFR NON-AFRICAN AMERICAN > 60
--- NOTE | 2018-07-02 09:35 | PCM.PSYCH ---
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 Today psychiatry was consulted. Patient expresses that he is interested in cutting down on his drinking, and he feels guilty and angry with himself for struggling to do so. This has left him feeling depressed for years. Patient was discharged from another facility on Sunday with a 90 tablets of lorazepam, but he had house guests who he suspects stole the majority of the tablets. This resulted in a relapse in drinking. Patient consumed 1 gallon of vodka over the weekend. His last drink was at 4am on Sunday06/30/18. Patient states that he drinks in order to relax and to avoid withdrawal symptoms. He reports withdrawal symptoms from drinking including nausea, vomiting, anxiety, shakes, tremors and cramps. He reports depressed mood and at times feelings of hopelessness and helplessness. He also reports poor sleep and poor appetite. He also reports that anxiety and panic attacks. He reports passive suicidal ideation. However he denies any auditory hallucinations or any paranoia. Patient reports that two years ago he made an at tempt on his life by ingesting several xanax with liquor. Patient has tried AA in the past. He reports of abusing cocaine in the past as well. PMH: HTN, hypothyroid, seizures, Meds: amlodipine/metorpolol, synthroid, keppra, lorazepam, fluoxetine Current Medications: Active Medications Generic Name Dose Route Start Last Admin Trade Name Rusty PRN Reason Stop Dose Admin Aspirin 81 mg 07/02/18 10:00 Ecotrin PO DAILY XU Chlordiazepoxide 25 mg 07/01/18 12:00 07/02/18 06:14 Librium PO 07/05/18 11:59 25 mg Q6 XU Administration Taper Folic Acid 1 mg 07/01/18 11:45 07/01/18 12:05 Folic Acid PO 1 mg DAILY XU Administration Heparin Sodium (Porcine) 5,000 units 07/01/18 10:00 07/01/18 21:26 Heparin SC 5,000 units Q12 XU Administration Hydroxyzine HCl 25 mg 07/01/18 17:44 Atarax PO HS PRN itchness/insomnia Sodium Chloride 1,000 mls @ 100 mls/hr 07/01/18 15:15 07/02/18 03:38 Sodium Chloride 0.9% IV Not Given .Q10H XU Levetiracetam 500 mg 07/01/18 18:00 07/01/18 18:31 Keppra PO 500 mg BID XU Administration Levothyroxine Sodium 50 mcg 07/02/18 06:30 07/02/18 06:14 Synthroid PO 50 mcg DAILY@0630 XU Administration Lorazepam 1 mg 07/01/18 11:39 07/01/18 21:39 Ativan IVP 1 mg Q4H PRN Administration Symptoms of alcohol withdrawl Multivitamins 1 tab 07/01/18 11:45 07/01/18 12:05 Hexavitamin PO 1 tab DAILY XU Administration Pantoprazole Sodium 40 mg 07/01/18 12:15 07/01/18 15:01 Protonix Ec Tab PO 40 mg DAILY XU Administration Rosuvastatin Calcium 20 mg 07/01/18 22:00 07/01/18 21:26 Crestor PO 20 mg HS XU Administration Thiamine HCl 100 mg 07/01/18 11:45 07/01/18 12:05 Vitamin B1 Tab PO 100 mg DAILY XU Administration Past Psychiatric History - Past Psychiatric History Previous Treatment History: Inpatient Pertinent Medical Hx (Current Medical&Sleep Prob, Allergies): Allergies Allergy/AdvReac Type Severity Reaction Status Date / Time iodine Allergy RASH Verified 06/30/18 14:56 Penicillins Allergy Verified 06/30/18 14:56 LORazepam [Ativan] 1 mg PO Q8 PRN 02/26/18 Zolpidem [Ambien] 10 mg PO HS 02/26/18 FLUoxetine [Prozac] 20 mg PO DAILY #30 cap 05/19/18 Mirtazapine [Remeron] 15 mg PO HS #30 tab 05/19/18 Aspirin [Ecotrin] 81 mg PO DAILY #30 tabec 06/25/18 Atorvastatin [Lipitor] 20 mg PO HS #30 tab 06/25/18 Folic Acid 1 mg PO DAILY #30 tab 06/25/18 Gabapentin [Neurontin] 300 mg PO BID #60 cap 06/25/18 Levothyroxine [Synthroid] 100 mcg PO DAILY #30 tab 06/25/18 Metoprolol Succinate XL [Toprol XL] 100 mg PO DAILY #30 tab 06/25/18 Multivitamins [Hexavitamin] 1 tab PO DAILY #30 tab 06/25/18 Pantoprazole [Protonix EC Tab] 40 mg PO DAILY #30 ect 06/25/18 Thiamine [Vitamin B1 Tab] 100 mg PO DAILY #30 tab 06/25/18 amLODIPine [Norvasc] 5 mg PO DAILY #30 tab 06/25/18 levETIRAcetam [Keppra] 500 mg PO Q12 #60 tab 06/25/18 Review of Systems - Review of Systems All systems: reviewed and no additional remarkable complaints except - Psychiatric Psychiatric: Anxiety, Irritability, Suicidal Ideation Mental Status Examination - Personal Presentation Personal Presentation: Looks stated age - Affect Affect: Constricted, Depressed - Motor Activity Motor Activity: Calm - Reliability in Providing Information Reliability in Providing Information: Poor, due to altered mood - Speech Speech: Disorganized - Mood Mood: Depressed, Anxious - Formal Thought Process Formal Thought Process: No Impairment - Obsessions/Compulsions Obsessions: No Compulsions: No - Cognitive Functions Orientation: Person, Place, Situation, Time Sensorium: Alert Attention/Concentration: Attentive Abstract Thinking: [place] Estimate of Intelligence: Below average Judgement: Imparied, as evidence by: Poor judgement, Imparied, as evidence by: Lack of insight into illness - Risk Risk: Suicidal, Withdrawal, Diminished functioning - Limitations Limitations: Living alone DSM 5 DX - DSM 5 DSM 5 Diagnosis: Alcohol use disorder severe Alcohol withdrawal Major depressive disorder recurrent severe without psychotic features. - Recommended/Plan of Treatment Treatment Recommendations and Plan of Treatment: Alcohol use disorder severe Alcohol withdrawal Major depressive disorder recurrent severe without psychotic features. Hypertension Stroke Seizures CBT Psychoeducation Supportive therapy and group therapy Ativan taper since LFTs are high Withdrawal medications including folic acid/multivitamin/thiamine Neurontin for augmentation Zoloft for depression Seroquel for insomnia Hydroxyzine for anxiety Keppra for seizures - Smoking Cessation Smoking Cessation Initiated: No
[2018-07-02] MEDS: Pantoprazole 40 mg EC Tab PO SCH (10:33)
[2018-07-02] MEDS: Multiple Vitamins Tab PO SCH (10:33)
[2018-07-02 11:44] LABS: HEMOGLOBIN 11.4 g/dL (12.0-18.0); MEAN CELL VOLUME 102.7 fL (80.0-94.0); MEAN CORPUSCULAR HEMOGLOBIN 34.7 pg (27.0-31.0); MEAN CORPUSCULAR HGB CONC 33.8 g/dL (33.0-37.0); MEAN PLATELET VOLUME 7.7 fL (7.2-11.7); RBC 3.3 Mil/uL (4.40-5.90); RED CELL DISTRIBUTION WIDTH 16.2 % (11.5-14.5); WHITE BLOOD COUNT 4.5 K/uL (4.8-10.8)
--- NOTE | 2018-07-02 12:10 | CARD ---
APPROVED REPORT Date of service: 07/01/2018 EKG Measurement Heart [id number] <Conclusion> Normal sinus rhythm Nonspecific T wave abnormality Prolonged QT Abnormal ECG
[2018-07-02] MEDS ORDERED: Potassium Chloride 20 mEq ER Tab PO ONE (13:50)
[2018-07-02] MEDS ORDERED: Magnesium Sulfate 1 gm in D5W 1 GM/100 ML BAG IVPB ONE (14:00)
--- NOTE | 2018-07-02 14:58 | CP.PCM.PN ---
<Ed Palacios - Last Filed: 07/02/18 21:21> Subjective - Date & Time of Evaluation Date of Evaluation: 07/02/18 Time of Evaluation: 08:30 - Subjective Subjective: PGY-[address] Dooley service Patient seen and examined at bedside this morning. Patient was sleeping comfortably, upon awakening, patient stated he felt "terrible" and had chills and hand tremors. Patient admits to stomach discomfort and states he has not been able to eat breakfast, admits to dizziness and has not been able to get up from bed due to it. stated has two episodes of diarrhea this morning. Denies fever, chest pain, shortness of breath, n/v, abdominal pain or urinary symptoms. Objective - Vital Signs/Intake and Output Vital Signs (last 24 hours): Temp Pulse Resp BP Pulse Ox 98.5 F 78 20 146/86 94 L 07/02/18 12:55 07/02/18 12:55 07/02/18 12:55 07/02/18 12:55 07/02/18 12:55 - Medications Medications: Current Medications Acetaminophen (Tylenol 325mg Tab) 650 mg PO Q6 PRN PRN Reason: Pain, moderate (4-7) Aspirin (Ecotrin) 81 mg PO DAILY [facility] Last Admin: 07/02/18 10:34 Dose: 81 mg Folic Acid (Folic Acid) 1 mg PO DAILY [facility] Last Admin: 07/02/18 10:34 Dose: 1 mg Heparin Sodium (Porcine) (Heparin) 5,000 units SC Q12 [facility] Last Admin: 07/02/18 10:34 Dose: 5,000 units Hydroxyzine HCl (Atarax) 25 mg PO HS PRN PRN Reason: itchness/insomnia Levetiracetam (Keppra) 500 mg PO BID [facility] Last Admin: 07/02/18 10:34 Dose: 500 mg Levothyroxine Sodium (Synthroid) 50 mcg PO DAILY@0630 [facility] Last Admin: 07/02/18 06:14 Dose: 50 mcg Lorazepam (Ativan) 1 mg IVP Q4H PRN PRN Reason: Symptoms of alcohol withdrawl Last Admin: 07/02/18 10:34 Dose: 1 mg Lorazepam (Ativan) 1 mg PO Q6 [facility]; Taper Stop: 07/05/18 12:14 Lorazepam (Ativan) 1 mg PO Q4H PRN PRN Reason: Symptoms of alcohol withdrawl Last Admin: 07/02/18 14:44 Dose: 1 mg Multivitamins (Hexavitamin) 1 tab PO DAILY [facility] Last Admin: 07/02/18 10:33 Dose: 1 tab Pantoprazole Sodium (Protonix Ec Tab) 40 mg PO DAILY [facility] Last Admin: 07/02/18 10:33 Dose: 40 mg Rosuvastatin Calcium (Crestor) 20 mg PO HS [facility] Last Admin: 07/01/18 21:26 Dose: 20 mg Thiamine HCl (Vitamin B1 Tab) 100 mg PO DAILY [facility] Last Admin: 07/02/18 10:33 Dose: 100 mg - Labs Labs: 07/02/18 11:33 07/02/18 06:53 - Constitutional Appears: Non-toxic, No Acute Distress - Head Exam Head Exam: ATRAUMATIC, NORMAL INSPECTION, NORMOCEPHALIC - Eye Exam Eye Exam: EOMI, Normal appearance - ENT Exam ENT Exam: Mucous Membranes Moist, Normal Exam - Neck Exam Neck Exam: Normal Inspection - Respiratory Exam Respiratory Exam: Clear to Ausculation Bilateral, NORMAL BREATHING PATTERN. absent: Rales, Rhonchi, Wheezes - Cardiovascular Exam Cardiovascular Exam: REGULAR RHYTHM, +S1, +S2 - GI/Abdominal Exam GI & Abdominal Exam: Soft, Normal Bowel Sounds. 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 Plan: EtOH/BZD withdrawal EtOH abuse Patient requesting ativan and benadryl overnight Psych consult Dr Damon - recommends transfer to psych 5E for detox treatment Patient to be transfer to 5E for further management of ETOH/BZD abuse Head laceration, secondary to fall Head CT shows no acute changes F/u lumbar Xray Hypomagnesemia Mg 1.7 this am- repleted with Mg sulfate x 1 dose Hypokalemia K 3.5 - repleted with KDUR 20meq x 1 dose Hx of Seizures Continue home keppra 500 mg PO BID Precautions as above Polysubstance abuse UDS positive for cocaine metabolites AVOID beta blockers Hx of CVA x2 cont ASA 81 mg PO daily cont Crestor 20 mg PO QHS Hx of hypothyroidism cont Levothyroxine 50 mcg TSH/T4 WNL Macrocytic anemia Hg is 11.4, MCV is 102.4 Likely secondary to etoh abuse Pt on folate Vitb12 wnl PPx: Protonix 40 mg PO daily SCDs, Heparin 5000 sc q12 PT/OT Dispo: Patient to be transferred to Psych unit for detox management under Dr Damon. Will continue to follow up Lumbar Xray results, if xray results are negative, will be signing off case. Case discussed with Dr Miah Palacios, PGY-1 <Azucena Dooley V - Last Filed: 07/04/18 00:20> Objective - Vital Signs/Intake and Output Vital Signs (last 24 hours): Temp Pulse Resp BP Pulse Ox 98.0 F 97 H 20 104/65 96 07/02/18 15:00 07/03/18 15:58 07/02/18 15:00 07/03/18 15:58 07/02/18 15:00 - Medications Medications: Current Medications Acetaminophen (Tylenol 325mg Tab) 650 mg PO Q6 PRN PRN Reason: Pain, moderate (4-7) Last Admin: 07/03/18 14:56 Dose: 650 mg Aspirin (Ecotrin) 81 mg PO DAILY [facility] Last Admin: 07/03/18 09:30 Dose: 81 mg Diphenhydramine HCl (Benadryl) 25 mg PO Q4 PRN PRN Reason: Allergy symptoms Last Admin: 07/02/18 22:18 Dose: 25 mg Folic Acid (Folic Acid) 1 mg PO DAILY [facility] Last Admin: 07/03/18 09:30 Dose: 1 mg Gabapentin (Neurontin) 100 mg PO TID [facility] Last Admin: 07/03/18 17:03 Dose: 100 mg Hydroxyzine HCl (Atarax) 25 mg PO HS PRN PRN Reason: itchness/insomnia Levetiracetam (Keppra) 500 mg PO BID [facility] Last Admin: 02/27/19 17:03 Dose: 500 mg Levothyroxine Sodium (Synthroid) 50 mcg PO DAILY@0630 [facility] Last Admin: 07/03/18 06:31 Dose: 50 mcg Lorazepam (Ativan) 1 mg IVP Q4H PRN PRN Reason: Symptoms of alcohol withdrawl Last Admin: 07/02/18 10:34 Dose: 1 mg Lorazepam (Ativan) 1 mg PO Q8 [facility]; Taper Stop: 07/05/18 12:14 Last Admin: 07/03/18 22:37 Dose: 1 mg Lorazepam (Ativan) 1 mg PO Q4H PRN PRN Reason: Symptoms of alcohol withdrawl Last Admin: 07/03/18 17:03 Dose: 1 mg Multivitamins (Hexavitamin) 1 tab PO DAILY [facility] Last Admin: 07/03/18 09:30 Dose: 1 tab Pantoprazole Sodium (Protonix Ec Tab) 40 mg PO DAILY [facility] Last Admin: 07/03/18 09:30 Dose: 40 mg Quetiapine Fumarate (Seroquel) 50 mg PO HS [facility] Last Admin: 07/03/18 22:36 Dose: 50 mg Rosuvastatin Calcium (Crestor) 20 mg PO HS [facility] Last Admin: 07/03/18 22:36 Dose: 20 mg Sertraline HCl (Zoloft) 50 mg PO DAILY [facility] Thiamine HCl (Vitamin B1 Tab) 100 mg PO DAILY [facility] Last Admin: 07/03/18 09:30 Dose: 100 mg - Labs Labs: 07/02/18 11:33 07/02/18 06:53 Attending/Attestation - Attestation I have personally seen and examined this patient.: Yes I have fully participated in the care of the patient.: Yes I have reviewed all pertinent clinical information, including history, physical exam and plan: Yes
[2018-07-02 15:37] VITALS: O2SAT 96
--- NOTE | 2018-07-02 20:29 | PCM.BM ---
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), dietary restrictions (Heart healthy diet), substance abuse, medical problems (HTN, Hypothyroidism, Seizures, knee and hip replacements.) - Milieu Protocol Maintain good personal hygiene: daily Encourage regular showers, daily Remind patient to perform daily oral care, every shift Assist patient to perform ADL's Conduct patient checks and document Observation sheet: Q15 minutes (For safety) Maintain personal safety: every shift Educate patient to report safety concerns to staff, every shift Monitor environment for contraband/sharps Medication safety: Monitor for expected outcome, potential side effects: every shift, Assess barriers to learning: every shift, Assess readiness for medication education: every shift <Rivera Damon - Last Filed: 07/03/18 11:56> - Diagnosis (1) Major depression Status: Acute Interventions: 07/03/18 11:57 * Assess/adjust medications daily and /or as needed * See patient on an individual basis 7x/week to assess symptoms of depression * Monitor for side effects & effectiveness of medications * (2) Alcohol abuse Status: Acute Interventions: 07/03/18 11:57 * Assess 7x/week regarding severity of withdrawal * Educate regarding risks, benefits, side effects and alternatives of me dications * Use Motivational Interviewing for abstinence * Use CBT for relapse prevention * Medication management for withdrawal symptoms * Encourage medication assisted treatment * <Marlyn Vora - Last Filed: 07/03/18 14:21> Family Contact Family involvement: Famliy/SO not involved - Goals for Treatment Patient goals for treatment: "I just want detox." Discharge/Continuing Care - Education Needs Education Needs: Patient Medication, Patient Coping Skills - Discharge Discharge Criteria: Tolerates medication w/o severe side effects, No longer exhibiting s/s of withdrawal, Reduction of target symptoms Discharge to:: Home - Treatment Team Participation Discussed with Family/SO: No Was Patient/Family/SO present at Treatment Team Meeting: Yes
[2018-07-03] MEDS: Levothyroxine 50 MCG TAB PO SCH (06:31)
[2018-07-03] MEDS: Pantoprazole 40 mg EC Tab PO SCH (09:30)
[2018-07-03] MEDS: Multiple Vitamins Tab PO SCH (09:30)
[2018-07-03] MEDS ORDERED: Potassium Chloride 20 mEq ER Tab PO ONE (11:45)
--- NOTE | 2018-07-03 16:14 | RAD ---
Date of service: 07/03/2018 PROCEDURE: Radiographs of the Lumbar Spine. HISTORY: Status post fall COMPARISON: No prior. FINDINGS: BONES: No evidence of acute compression fractures no retropulsed fragments. Vertebral bodies exhibit normal stature. There is mild levoscoliosis with increased kyphosis secondary to chronic anterior wedge deformity of the T11 and to a lesser degree L1 and less so the T12 segments. DISC SPACES: Multilevel degenerative spondylosis. Changes include varying degrees of disc space narrowing more so along the posterior disc margins with endplate eburnation and anterolateral osteophyte formation. The facet joints also hypertrophic L5-S1 through the L2-L3 levels in decreasing order of severity OTHER FINDINGS: Bilateral total hip replacements. Note made of a somewhat elliptical shaped radiopaque calcific like density overlying the right upper quadrant of the abdomen which may represent bowel related type artifact as prior ultrasound demonstrated no evidence of renal or gallbladder calculi. IMPRESSION: Chronic appearing anterior wedge deformities of the T11, L1 and to a lesser degree T12 segments with increase kyphosis of. There is also a mild levoscoliosis. Multilevel degenerative spondylosis.
--- NOTE | 2018-07-03 17:10 | CP.PCM.PN ---
<Ed Palacios - Last Filed: 07/03/18 17:06> Subjective - Date & Time of Evaluation Date of Evaluation: 07/03/18 Time of Evaluation: 14:00 - Subjective Subjective: PGY-[address] Dooley service Patient is seen and examined at bedside at [address] [place] [address]. Patient states not feeling to well, complaining of chills, and abdominal discomfort. Patient complains of back pain of chronic nature and states that mattress is uncomfortable. Patient denies fever, chest pain, shortness of breath, palpitation or recent falls. Patient uses wheelchair to move. Objective - Vital Signs/Intake and Output Vital Signs (last 24 hours): Temp Pulse Resp BP Pulse Ox 98.0 F 97 H 20 104/65 96 07/02/18 15:00 07/03/18 15:58 07/02/18 15:00 07/03/18 15:58 07/02/18 15:00 - Medications Medications: Current Medications Acetaminophen (Tylenol 325mg Tab) 650 mg PO Q6 PRN PRN Reason: Pain, moderate (4-7) Last Admin: 07/03/18 14:56 Dose: 650 mg Aspirin (Ecotrin) 81 mg PO DAILY [facility] Last Admin: 07/03/18 09:30 Dose: 81 mg Diphenhydramine HCl (Benadryl) 25 mg PO Q4 PRN PRN Reason: Allergy symptoms Last Admin: 07/02/18 22:18 Dose: 25 mg Folic Acid (Folic Acid) 1 mg PO DAILY [facility] Last Admin: 07/03/18 09:30 Dose: 1 mg Gabapentin (Neurontin) 100 mg PO TID [facility] Last Admin: 07/03/18 17:03 Dose: 100 mg Hydroxyzine HCl (Atarax) 25 mg PO HS PRN PRN Reason: itchness/insomnia Levetiracetam (Keppra) 500 mg PO BID [facility] Last Admin: 07/03/18 17:03 Dose: 500 mg Levothyroxine Sodium (Synthroid) 50 mcg PO DAILY@0630 [facility] Last Admin: 07/03/18 06:31 Dose: 50 mcg Lorazepam (Ativan) 1 mg IVP Q4H PRN PRN Reason: Symptoms of alcohol withdrawl Last Admin: 07/02/18 10:34 Dose: 1 mg Lorazepam (Ativan) 1 mg PO Q8 [facility]; Taper Stop: 07/05/18 12:14 Last Admin: 07/03/18 14:56 Dose: 1 mg Lorazepam (Ativan) 1 mg PO Q4H PRN PRN Reason: Symptoms of alcohol withdrawl Last Admin: 07/03/18 17:03 Dose: 1 mg Multivitamins (Hexavitamin) 1 tab PO DAILY [facility] Last Admin: 07/03/18 09:30 Dose: 1 tab Pantoprazole Sodium (Protonix Ec Tab) 40 mg PO DAILY [facility] Last Admin: 07/03/18 09:30 Dose: 40 mg Quetiapine Fumarate (Seroquel) 50 mg PO HS [facility] Last Admin: 07/02/18 22:30 Dose: 50 mg Rosuvastatin Calcium (Crestor) 20 mg PO HS [facility] Last Admin: 07/02/18 22:32 Dose: 20 mg Thiamine HCl (Vitamin B1 Tab) 100 mg PO DAILY [facility] Last Admin: 07/03/18 09:30 Dose: 100 mg - Labs Labs: 07/02/18 11:33 07/02/18 06:53 - Constitutional Appears: Non-toxic, No Acute Distress - Head Exam Head Exam: ATRAUMATIC, NORMAL INSPECTION, NORMOCEPHALIC - Eye Exam Eye Exam: EOMI, Normal appearance - ENT Exam ENT Exam: Mucous Membranes Moist, Normal Exam - Neck Exam Neck Exam: Full ROM, Normal Inspection - Respiratory Exam Respiratory Exam: Clear to Ausculation Bilateral, NORMAL BREATHING PATTERN. absent: Rales, Rhonchi, Wheezes - Cardiovascular Exam Cardiovascular Exam: REGULAR RHYTHM, +S1, +S2 - GI/Abdominal Exam GI & Abdominal Exam: Soft, Normal Bowel Sounds. absent: Distended, Guarding, Tenderness - Extremities Exam Extremities Exam: Full ROM. absent: Pedal Edema - Back Exam Back Exam: Full ROM. 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 Plan: EtOH/BZD withdrawal EtOH abuse hx of polysubstance abuse Management as per Psych team/ Dr Damon Head laceration, secondary to fall Head CT shows no acute changes F/u lumbar spine Xray 07/03 - no evidence of acute compression fractures. Chronic appearing anterior wedge deformities T11, L1, with increase kyphosis, degenerative spondylosis Decubitus sacral ulcer continue wound care patient adviced to place a pillow to prevent skin from making contact with hard surface of mattress Hx of Seizures Continue home keppra 500 mg PO BID Hx of CVA x2 cont ASA 81 mg PO daily cont Crestor 20 mg PO QHS Hx of hypothyroidism cont Levothyroxine 50 mcg TSH/T4 WNL Macrocytic anemia Likely secondary to etoh abuse Pt on folate Vitb12 wnl PPx: Protonix 40 mg PO daily SCDs, Heparin 5000 sc q12 PT/OT Dispo: Patient is medically stable as per medicine standpoint. We will be signing off at this time. Please re-consult medicine service as needed. Case discussed with Dr Miah Palacios, PGY-1 <Azucena Dooley V - Last Filed: 07/09/18 17:12> Objective - Vital Signs/Intake and Output Vital Signs (last 24 hours): Temp Pulse Resp BP Pulse Ox 98.3 F 69 18 114/71 96 07/08/18 06:17 07/09/18 15:47 07/09/18 09:00 07/09/18 15:47 07/08/18 06:17 - Medications Medications: Current Medications Acetaminophen (Tylenol 325mg Tab) 650 mg PO Q6 PRN PRN Reason: Pain, moderate (4-7) Last Admin: 07/09/18 06:41 Dose: 650 mg Aspirin (Ecotrin) 81 mg PO DAILY [facility] Last Admin: 07/09/18 10:35 Dose: 81 mg Diphenhydramine HCl (Benadryl) 25 mg PO Q4 PRN PRN Reason: Allergy symptoms Last Admin: 07/04/18 22:34 Dose: 25 mg Folic Acid (Folic Acid) 1 mg PO DAILY [facility] Last Admin: 07/09/18 10:35 Dose: 1 mg Gabapentin (Neurontin) 300 mg PO TID [facility] Last Admin: 07/09/18 13:41 Dose: 300 mg Hydroxyzine HCl (Atarax) 25 mg PO HS PRN PRN Reason: itchness/insomnia Levetiracetam (Keppra) 500 mg PO BID [facility] Last Admin: 07/09/18 10:35 Dose: 500 mg Levothyroxine Sodium (Synthroid) 50 mcg PO DAILY@0630 [facility] Last Admin: 07/09/18 06:39 Dose: 50 mcg Lorazepam (Ativan) 1 mg IVP Q4H PRN PRN Reason: Symptoms of alcohol withdrawl Last Admin: 07/02/18 10:34 Dose: 1 mg Lorazepam (Ativan) 1 mg PO Q4H PRN PRN Reason: Symptoms of alcohol withdrawl Last Admin: 07/07/18 21:51 Dose: 1 mg Multivitamins (Hexavitamin) 1 tab PO DAILY [facility] Last Admin: 07/09/18 10:35 Dose: 1 tab Pantoprazole Sodium (Protonix Ec Tab) 40 mg PO DAILY [facility] Last Admin: 07/09/18 10:35 Dose: 40 mg Quetiapine Fumarate (Seroquel) 200 mg PO [facility] Rosuvastatin Calcium (Crestor) 20 mg PO HS [facility] Last Admin: 07/08/18 22:17 Dose: 20 mg Sertraline HCl (Zoloft) 100 mg PO DAILY [facility] Last Admin: 07/09/18 10:35 Dose: 100 mg Thiamine HCl (Vitamin B1 Tab) 100 mg PO DAILY [facility] Last Admin: 07/09/18 10:35 Dose: 100 mg - Labs Labs: 07/08/18 11:54 07/08/18 11:54 Attending/Attestation - Attestation I have personally seen and examined this patient.: Yes I have fully participated in the care of the patient.: Yes I have reviewed all pertinent clinical information, including history, physical exam and plan: Yes Notes (Text): This is late computer entry for 07/03/18. Patient seen, examined and case discussed with day-time resident. Patient seen on . Patient completed lumbar xray today; reviewed findings with resident; noted chronic degenerative changes in the back. Patient reminded again to turn side to side to offload pressure on his sacral ulcer. Medicine to sign off. Please reconsult if necessary. Thank you.
--- NOTE | 2018-07-03 23:48 | PCM.PYCHPN ---
Psychiatric Progress Note - Psychiatric Progress Note Patient seen today, length of contact: 15 min Patient Chief Complaint: I am still withdrawing Problems Identified/Issues Discussed: Patient was seen and evaluated, chart reviewed and discussed the staff. Patient was transferred to psych for the stabilization of the symptoms. Patient still reports withdrawal symptoms from drinking including nausea, vomiting, shakes, anxiety, headaches and cramps. He still reports depressed mood but reports improvement in the feelings of hopelessness and helplessness. He still reports poor sleep and asking for stronger medication. He denies any auditory or visual hallucinations or any paranoia. He is taking medication but denies any side effects. Supportive therapy was given. Medication Change: Yes Medical Record Reviewed: Yes Mental Status Examination - Cognitive Function Orientation: Person, Place, Situation, Time Memory: Intact Attention: WNL Concentration: Poor Association: WNL Fund of Knowledge: Poor - Mood Mood: Depressed, Anxious - Affect Affect: Constricted, Depressed - Speech Speech: Soft - Formal Thought Process Formal Thought Process: No Impairment - Suicidal Ideation Suicidal Ideation: No - Homicidal Ideation Homicidal Ideation: No Goal/Treatment Plan - Goal/Treatment Plan Need for Continued Stay: Remain at risks for inpatient hospitalization Progress Toward Problem(s) and Goals/Treatment Plan: Alcohol use disorder severe Alcohol withdrawal Major depressive disorder recurrent severe without psychotic features. Hypertension Stroke Seizures CBT Psychoeducation Supportive therapy and group therapy Ativan taper since LFTs are high Withdrawal medications including folic acid/multivitamin/thiamine Neurontin for augmentation Zoloft for depression Seroquel for insomnia Hydroxyzine for anxiety Keppra for seizures - Smoking Cessation Smoking Cessation Initiated: No
[2018-07-04] MEDS: Levothyroxine 50 MCG TAB PO SCH (06:54)
[2018-07-04] MEDS: Multiple Vitamins Tab PO SCH (10:26)
[2018-07-04] MEDS: Pantoprazole 40 mg EC Tab PO SCH (10:27)
[2018-07-05] MEDS: Levothyroxine 50 MCG TAB PO SCH (06:16)
[2018-07-05] MEDS: Pantoprazole 40 mg EC Tab PO SCH (10:30)
[2018-07-05] MEDS: Multiple Vitamins Tab PO SCH (10:30)
[2018-07-06] MEDS: Levothyroxine 50 MCG TAB PO SCH (06:50)
[2018-07-06] MEDS: Pantoprazole 40 mg EC Tab PO SCH (09:18)
[2018-07-06] MEDS: Multiple Vitamins Tab PO SCH (09:18)
--- NOTE | 2018-07-06 22:59 | PCM.PYCHPN ---
Psychiatric Progress Note - Psychiatric Progress Note Patient seen today, length of contact: 15 min Patient Chief Complaint: Today I am feeling better. Problems Identified/Issues Discussed: Patient seen, chart reviewed, case discussed with the staff. Issues related to illness and treatment were discussed with the patient and staff. Reported compliant with treatment with no adverse effects. Tolerating treatment very well. Mood reported as okay. Affect appropriate. Patient reported that today he is feeling better social with the patient. Also that for the last 2 days he was staying in his room as he was not getting better. Staff also confirmed the above. Aftercare discussed with the patient. Patient denied any delusions, auditory or visual hallucinations, no suicidal ideations or homicidal ideations at the time of evaluation Medical Problems: Hypertension Hypothyroidism Seizure disorder Diagnostic Results: Reviewed DSM 5 Symptoms Update: Some improvement with treatment. Medication Change: No Medical Record Reviewed: Yes Consults ordered or reviewed: Reviewed Mental Status Examination - Cognitive Function Orientation: Person, Place, Situation, Time Memory: Intact Attention: WNL Concentration: WNL Association: [facility] Fund of Knowledge: [facility] Decription of patient's judgement and insights: Fair - Mood Mood: Depressed - Affect Affect: Depressed - Speech Speech: Soft - Formal Thought Process Formal Thought Process: No Impairment Psychotic Thoughts and Behaviors: None - Suicidal Ideation Suicidal Ideation: No - Homicidal Ideation Homicidal Ideation: No Goal/Treatment Plan - Goal/Treatment Plan Need for Continued Stay: Remain at risks for inpatient hospitalization, Discharge may exacerbated symptoms, Severe functional impairment Progress Toward Problem(s) and Goals/Treatment Plan: Some improvement with treatment. Patient education. Supportive therapy. CBT for relapse prevention. ND for abstinence. Continue treatment as before. Estimated Date of D/C: 07/08/18 - Smoking Cessation Smoking Cessation Initiated: No
[2018-07-07] MEDS: Levothyroxine 50 MCG TAB PO SCH (06:11)
[2018-07-07] MEDS: Pantoprazole 40 mg EC Tab PO SCH (10:10)
[2018-07-07] MEDS: Multiple Vitamins Tab PO SCH (10:10)
[2018-07-08] MEDS: Levothyroxine 50 MCG TAB PO SCH (05:46)
[2018-07-08] MEDS: Pantoprazole 40 mg EC Tab PO SCH (09:56)
[2018-07-08] MEDS: Multiple Vitamins Tab PO SCH (09:57)
--- NOTE | 2018-07-08 11:35 | PCM.PYCHPN ---
Psychiatric Progress Note - Psychiatric Progress Note Patient seen today, length of contact: 15 min Patient Chief Complaint: I am still withdrawing Problems Identified/Issues Discussed: Patient was seen and evaluated, chart reviewed and discussed the staff. Patient was transferred to psych for the stabilization of the symptoms. Patient still reports withdrawal symptoms from drinking including nausea, vomiting, shakes, anxiety, headaches and cramps. He still reports depressed mood but reports improvement in the feelings of hopelessness and helplessness. He still reports poor sleep and asking for stronger medication. He denies any auditory or visual hallucinations or any paranoia. He is taking medication but denies any side effects. Supportive therapy was given. Medication Change: No Medical Record Reviewed: Yes Mental Status Examination - Cognitive Function Orientation: Person, Place, Situation, Time Memory: Intact Attention: WNL Concentration: WNL Association: WNL Fund of Knowledge: WNL - Mood Mood: Depressed - Affect Affect: Depressed - Speech Speech: Soft - Formal Thought Process Formal Thought Process: No Impairment - Suicidal Ideation Suicidal Ideation: No - Homicidal Ideation Homicidal Ideation: No Goal/Treatment Plan - Goal/Treatment Plan Need for Continued Stay: Remain at risks for inpatient hospitalization, Discharge may exacerbated symptoms, Severe functional impairment Progress Toward Problem(s) and Goals/Treatment Plan: Alcohol use disorder severe Alcohol withdrawal Major depressive disorder recurrent severe without psychotic features. Hypertension Stroke Seizures CBT Psychoeducation Supportive therapy and group therapy Ativan taper since LFTs are high Withdrawal medications including folic acid/multivitamin/thiamine Neurontin for augmentation Zoloft for depression Seroquel for insomnia Hydroxyzine for anxiety Keppra for seizures Estimated Date of D/C: 07/08/18
[2018-07-08 12:17] LABS: ALB/GLOB RATIO 1.2 (1.0-2.1); ALBUMIN 3.9 g/dL (3.5-5.0); ALT/SGPT 29 U/L (21-72); AST/SGOT 37 U/L (17-59); BLOOD UREA NITROGEN 14 mg/dL (9-20); CALCIUM 8.9 mg/dl (8.6-10.4); GFR NON-AFRICAN AMERICAN > 60
[2018-07-08 12:29] LABS: EOS # 0.1 K/uL (0.0-0.7); LYMPH # 0.7 K/uL (1.0-4.3); MONO # 0.7 K/uL (0.0-0.8)
[2018-07-08 12:32] LABS: BASO # 0.1 K/uL (0.0-0.2); BASO % 1.1 % (0.0-2.0); EOS % 2.2 % (0.0-4.0); HEMOGLOBIN 11.8 g/dL (12.0-18.0); LYMPH % 14.3 % (20.0-40.0); MEAN CELL VOLUME 103.8 fL (80.0-94.0); MEAN CORPUSCULAR HEMOGLOBIN 34.4 pg (27.0-31.0); MEAN CORPUSCULAR HGB CONC 33.2 g/dL (33.0-37.0); MEAN PLATELET VOLUME 8.5 fL (7.2-11.7); MONO % 14.8 % (0.0-10.0); NEUT # 3.3 K/uL (1.8-7.0); NEUT % 67.6 % (50.0-75.0); NRBC % 0.2 % (0.0-2.0); RBC 3.43 Mil/uL (4.40-5.90); RED CELL DISTRIBUTION WIDTH 16.4 % (11.5-14.5); WHITE BLOOD COUNT 4.9 K/uL (4.8-10.8)
[2018-07-09] MEDS: Levothyroxine 50 MCG TAB PO SCH (06:39)
[2018-07-09] MEDS: Pantoprazole 40 mg EC Tab PO SCH (10:35)
[2018-07-09] MEDS: Multiple Vitamins Tab PO SCH (10:35)
--- NOTE | 2018-07-10 00:01 | PCM.PYCHPN ---
Psychiatric Progress Note - Psychiatric Progress Note Patient seen today, length of contact: 15 min Patient Chief Complaint: I am feeling little better.' Problems Identified/Issues Discussed: Patient was seen and evaluated, chart reviewed and discussed the staff. He reports some improvement in his depressed mood and reports improvement in the feelings of hopelessness and helplessness. Patient reports improvement in the withdrawal symptoms. He reports some improvement in sleep. He denies any auditory or visual hallucinations or any paranoia. He is taking medication but denies any side effects. Pt is going to rehab after discharge. Supportive therapy was given. Medication Change: Yes Medical Record Reviewed: Yes Mental Status Examination - Cognitive Function Orientation: Person, Place, Situation, Time Memory: Intact Attention: WNL Concentration: WNL Association: WNL Fund of Knowledge: Poor - Mood Mood: Anxious - Affect Affect: Constricted - Speech Speech: Soft - Formal Thought Process Formal Thought Process: No Impairment - Suicidal Ideation Suicidal Ideation: No - Homicidal Ideation Homicidal Ideation: No Goal/Treatment Plan - Goal/Treatment Plan Need for Continued Stay: Remain at risks for inpatient hospitalization Progress Toward Problem(s) and Goals/Treatment Plan: Alcohol use disorder severe Alcohol withdrawal Major depressive disorder recurrent severe without psychotic features. Hypertension Stroke Seizures -CBT -Psychoeducation -Supportive therapy and group therapy -Ativan taper since LFTs are high -Withdrawal medications including folic acid/multivitamin/thiamine -Neurontin for augmentation -Zoloft for depression -Seroquel for insomnia -Hydroxyzine for anxiety -Keppra for seizures Estimated Date of D/C: 07/11/18
[2018-07-10] MEDS: Levothyroxine 50 MCG TAB PO SCH (05:32)
--- NOTE | 2018-07-10 10:18 | PCM.BM ---
<Marlyn Vora - Last Filed: 07/10/18 10:18> Treatment Plan Problems - Problems identified on initial assessmt Activity intolerance Date Initiated: 07/02/18 Time Initiated: 20:30 Assessment reference: NA Altered sleep patterns Date Initiated: 07/02/18 Time Initiated: 20:30 Assessment reference: NA Status: Active Treatment assets and liabiliti Patient Assests: adapts well, cooperative, educated, negotiates basic needs, cognitively intact Patient Liabilities: physical pain (Knee and hip pain), poor support system (Needs health care law specialist at home), dietary restrictions (Heart healthy diet), substance abuse, medical problems (HTN, Hypothyroidism, Seizures, knee and hip replacements.) - Milieu Protocol Maintain good personal hygiene: daily Encourage regular showers, daily Remind patient to perform daily oral care, every shift Assist patient to perform ADL's Conduct patient checks and document Observation sheet: Q15 minutes (For safety) Maintain personal safety: every shift Educate patient to report safety concerns to staff, every shift Monitor environment for contraband/sharps Medication safety: Monitor for expected outcome, potential side effects: every shift, Assess barriers to learning: every shift, Assess readiness for medication education: every shift Milieu Narrative: Alcohol use disorder severe Alcohol withdrawal Major depressive disorder recurrent severe without psychotic features. Hypertension Stroke Seizures CBT Psychoeducation Supportive therapy and group therapy Ativan taper since LFTs are high Withdrawal medications including folic acid/multivitamin/thiamine Neurontin for augmentation Zoloft for depression Seroquel for insomnia Hydroxyzine for anxiety Keppra for seizures Family Contact Family involvement: Famliy/SO not involved - Goals for Treatment Patient goals for treatment: "I just want detox." Discharge/Continuing Care - Education Needs Education Needs: Patient Medication, Patient Coping Skills - Discharge Discharge Criteria: Tolerates medication w/o severe side effects, No longer exhibiting s/s of withdrawal, Reduction of target symptoms Discharge to:: Home - Treatment Team Participation Patient/Family/SO Statement: Alcohol use disorder severe Alcohol withdrawal Major depressive disorder recurrent severe without psychotic features. Hypertension Stroke Seizures CBT Psychoeducation Supportive therapy and group therapy Ativan taper since LFTs are high Withdrawal medications including folic acid/multivitamin/thiamine Neurontin for augmentation Zoloft for depression Seroquel for insomnia Hydroxyzine for anxiety Keppra for seizures Discussed with Family/SO: No Was Patient/Family/SO present at Treatment Team Meeting: Yes Treatment Plan Review - Problem Activity intolerance Time Initiated: 20:30 Altered sleep patterns Time Initiated: 20:30 - Discharge / Continuing Care Discharge to:: Substance Abuse Rehab Health Needs: Medications/Rx <Rivera Damon - Last Filed: 07/10/18 11:39> - Diagnosis (1) Major depression Status: Acute Interventions: 07/10/18 11:39 * Assess/adjust medications daily and /or as needed * See patient on an individual basis 7x/week to assess symptoms of depression * Monitor for side effects & effectiveness of medications * (2) Alcohol abuse Status: Acute Interventions: 07/10/18 11:39 * Assess 7x/week regarding severity of withdrawal * Educate regarding risks, benefits, side effects and alternatives of medications * Use Motivational Interviewing for abstinence * Use CBT for relapse prevention * Medication management for withdrawal symptoms * Encourage medication assisted treatment * <Lindsay Kim - Last Filed: 07/10/18 15:08> Treatment Plan Review - Problem Activity intolerance Date Initiated: 07/10/18 Time Initiated: 15:07 Progress toward outcomes: improved Altered sleep patterns Date Initiated: 07/10/18 Time Initiated: 15:08 Progress toward outcomes: improved
[2018-07-10] MEDS: Pantoprazole 40 mg EC Tab PO SCH (10:30)
[2018-07-10] MEDS: Multiple Vitamins Tab PO SCH (10:39)
[2018-07-11] MEDS: Levothyroxine 50 MCG TAB PO SCH (05:47)
[2018-07-11 06:38] VITALS: BP 137/76; PULSE 65; RESP 18; TEMP 97.6
--- NOTE | 2018-07-11 10:02 | PCM.PYCHPN ---
Psychiatric Progress Note - Psychiatric Progress Note Patient seen today, length of contact: 15 min Patient Chief Complaint: I am still withdrawing Problems Identified/Issues Discussed: Patient was seen and evaluated, chart reviewed and discussed the staff. He reports some improvement in his depressed mood and reports improvement in the withdrawal symptoms. He denies any auditory or visual hallucinations or any paranoia. He is taking medication but denies any side effects. Pt is going to rehab after discharge. Supportive therapy was given. Medication Change: No Medical Record Reviewed: Yes Mental Status Examination - Cognitive Function Orientation: Person, Place, Situation, Time Memory: Intact Attention: WNL Concentration: WNL Association: WNL Fund of Knowledge: WNL - Mood Mood: Depressed - Affect Affect: Depressed - Speech Speech: Soft - Formal Thought Process Formal Thought Process: No Impairment - Suicidal Ideation Suicidal Ideation: No - Homicidal Ideation Homicidal Ideation: No Goal/Treatment Plan - Goal/Treatment Plan Need for Continued Stay: Remain at risks for inpatient hospitalization, Discharge may exacerbated symptoms, Severe functional impairment Progress Toward Problem(s) and Goals/Treatment Plan: Alcohol use disorder severe Alcohol withdrawal Major depressive disorder recurrent severe without psychotic features. Hypertension Stroke Seizures CBT Psychoeducation Supportive therapy and group therapy Ativan taper since LFTs are high Withdrawal medications including folic acid/multivitamin/thiamine Neurontin for augmentation Zoloft for depression Seroquel for insomnia Hydroxyzine for anxiety Keppra for seizures Estimated Date of D/C: 07/11/18
--- NOTE | 2018-07-11 10:13 | PCM.PYCHDC ---
Mental Status Examination - Mental Status Examination Orientation: Person, Place, Situation, Time Memory: Intact Mood: Neutral Affect: Constricted Speech: Soft Attention: WNL Concentration: WNL Association: WNL Fund of Knowledge: WNL Formal Thought Process: No Impairment Description of patient's judgement and insight: good, fair Psychotic Thoughts and Behaviors: denies any AVH Suicidal Ideation: No Current Homicidal Ideation?: No Discharge Summary - Discharge Note Reason for Hospitalization: This is a 62 year old male with PMH of etoh abuse with seizures (on keppra 500 mg po bid)/withdrawals in the past, anxiety, depression, CVA x2 without residual weakness, HTN, hypothyroidism who presents with complaints of alcohol withdrawal described as increased anxiety, palpitations, upset stomach associated with a midsternal chest pain. Today psychiatry was consulted. Patient expresses that he is interested in cutting down on his drinking, and he feels guilty and angry with himself for struggling to do so. This has left him feeling depressed for years. Patient was discharged from another facility on Sunday with a 90 tablets of lorazepam, but he had house guests who he suspects stole the majority of the tablets. This resulted in a relapse in drinking. Patient consumed 1 gallon of vodka over the weekend. His last drink was at 4am on Sunday06/30/18. Patient states that he drinks in order to relax and to avoid withdrawal symptoms. He reports withdrawal symptoms from drinking including nausea, vomiting, anxiety, shakes, tremors and cramps. He reports depressed mood and at times feelings of hopelessness and helplessness. He also reports poor sleep and poor appetite. He also reports that anxiety and panic attacks. He reports passive suicidal ideation. However he denies any auditory hallucinations or any paranoia. Patient reports that two years ago he made an attempt on his life by ingesting several xanax with liquor. Patient has tried AA in the past. He reports of abusing cocaine in the past as well. Consultations:: List each consultation separately and include: 1. Reason for request. 2. Findings. 3. Follow-up Summary of Hospital Course include:: 1. Description of specific treatment plan utilized for patients during their course of treatmen. 2. Summarize the time- course for resolution of acute symptoms and/or regressed behaviors. 3. Describe issues identified and worked on during hospitalization. 4. Describe medication utilized. 5. Describe medical problems identified and treated. 6. Reassessment of suicide risk Summary of Hospital Course: During the course of his stay, patient (pt) started progressively improving and no longer remained irritable, depressed, and suicidal. His mood and anxiety were improved and he started attending groups and meetings and started socializing. Patient denied any feelings of hopelessness, helplessness, and worthlessness, denied any problem with the sleep or appetite, denied suicidal ideation or homicidal ideation. Pt denied any auditory or visual hallucinations. He denied any withdrawal symptoms. Pt was treated with medications along with supportive therapy, milieu therapy and group therapy. Some changes were made in his current medications and patient was discharged on following medications. He tolerated these medications very well and denied any side effects. - Diagnosis (1) Major depression Status: Acute (2) Alcohol abuse Status: Acute - Final Diagnosis (DSM 5) Condition upon Discharge: FAIR DSM 5: Major depressive disorder recurrent severe without psychotic features. Alcohol use disorder severe Alcohol withdrawal Disposition: HOME/ ROUTINE Follow-up Treatment Plan: Followup: Pt is to follow-up with [facility] for rehab admission. SW provided pt with intake appt at the [facility]. Education: Pt was educated and counseled about the risks and benefits of taking and not taking medications. Pt was educated and counseled about the risks of drinking and abusing drugs. Pt was educated and counseled to go to the ER or call 911 if pt develop suicidal ideation or homicidal ideation, worsening of symptoms or severe side effects of the meds. Prescriptions/Medication Reconciliation: Gabapentin [Neurontin] 300 mg PO BID #60 cap levETIRAcetam [Keppra] 500 mg PO BID #60 tab QUEtiapine [SEROquel] 200 mg PO HS #30 tab Sertraline [Zoloft] 100 mg PO DAILY #30 tab - Smoking Cessation Smoking Cessation Medication prescribed: No
[2018-07-11] MEDS: Pantoprazole 40 mg EC Tab PO SCH (10:49)
[2018-07-11] MEDS: Multiple Vitamins Tab PO SCH (10:49)
== END 2018-07-11 12:37 | disposition home or self-care (01) | DRG 895 ==
LOC: C.ER 14:48 → C.9E 18:08 → C.5S 19:31 → UNDODISIN 07-02 17:58 → C.5E 07-02 18:08
PROVIDERS: ADMIT Psychiatry & Neurology Psychiatry; ATTEND Psychiatry & Neurology Psychiatry
PROC: HZ52ZZZ Individual Psychotherapy for Substance Abuse Treatment, Cognitive-Behavioral (ICD-10-PCS; principal; 2018-06-30)
PROC: HZ2ZZZZ Detoxification Services for Substance Abuse Treatment (ICD-10-PCS; 2018-06-30)
PROC: HZ59ZZZ Individual Psychotherapy for Substance Abuse Treatment, Supportive (ICD-10-PCS; 2018-06-30)
PROC: HZ56ZZZ Individual Psychotherapy for Substance Abuse Treatment, Psychoeducation (ICD-10-PCS; 2018-06-30)
PROC: HZ42ZZZ Group Counseling for Substance Abuse Treatment, Cognitive-Behavioral (ICD-10-PCS; 2018-06-30)
PROC: HZ46ZZZ Group Counseling for Substance Abuse Treatment, Psychoeducation (ICD-10-PCS; 2018-06-30)
PROC: GZHZZZZ Group Psychotherapy (ICD-10-PCS; 2018-06-30)
PROC: GZ58ZZZ Individual Psychotherapy, Cognitive-Behavioral (ICD-10-PCS; 2018-06-30)
PROC: GZ56ZZZ Individual Psychotherapy, Supportive (ICD-10-PCS; 2018-06-30)
DX: F10.230 Alcohol dependence with withdrawal, uncomplicated (principal); R45.851 Suicidal ideations; F33.2 Major depressive disorder, recurrent severe without psychotic features; G40.509 Epileptic seizures related to external causes, not intractable, without status epilepticus; F14.10 Cocaine abuse, uncomplicated; F13.230 Sedative, hypnotic or anxiolytic dependence with withdrawal, uncomplicated; I12.9 Hypertensive chronic kidney disease with stage 1 through stage 4 chronic kidney disease, or unspecified chronic kidney disease; F41.9 Anxiety disorder, unspecified; Z86.73 Personal history of transient ischemic attack (TIA), and cerebral infarction without residual deficits; E03.9 Hypothyroidism, unspecified; N18.9 Chronic kidney disease, unspecified; R07.9 Chest pain, unspecified; Z91.5 Personal history of self-harm; G47.00 Insomnia, unspecified; D53.9 Nutritional anemia, unspecified; Y90.0 Blood alcohol level of less than 20 mg/100 ml

== ENCOUNTER 2018-08-22 15:32 | Inpatient (IN) | payer MEDICARE, BC | END 2018-08-28 13:54 | disposition home or self-care (01) | DRG 895 | LOC: C.3T 08-27 10:00 → C.ER 15:32 → C.9E 18:51 → C.6T 20:42 | PROC: HZ52ZZZ Individual Psychotherapy for Substance Abuse Treatment, Cognitive-Behavioral (ICD-10-PCS; principal; 2018-08-24) | PROC: HZ59ZZZ Individual Psychotherapy for Substance Abuse Treatment, Supportive (ICD-10-PCS; 2018-08-24) | PROC: HZ56ZZZ Individual Psychotherapy for Substance Abuse Treatment, Psychoeducation (ICD-10-PCS; 2018-08-24) | PROC: GZ58ZZZ Individual Psychotherapy, Cognitive-Behavioral (ICD-10-PCS; 2018-08-24) | PROC: GZ56ZZZ Individual Psychotherapy, Supportive (ICD-10-PCS; 2018-08-24) | DX: F10.24 Alcohol dependence with alcohol-induced mood disorder (principal); E03.9 Hypothyroidism, unspecified; E11.9 Type 2 diabetes mellitus without complications; I10 Essential (primary) hypertension; Z86.73 Personal history of transient ischemic attack (TIA), and cerebral infarction without residual deficits; F32.9 Major depressive disorder, single episode, unspecified; M19.90 Unspecified osteoarthritis, unspecified site; F41.0 Panic disorder [episodic paroxysmal anxiety]; Z59.0 Homelessness; Z91.5 Personal history of self-harm; G47.00 Insomnia, unspecified; Y90.9 Presence of alcohol in blood, level not specified; F41.1 Generalized anxiety disorder; F10.230 Alcohol dependence with withdrawal, uncomplicated; R26.81 Unsteadiness on feet; G25.2 Other specified forms of tremor; R07.9 Chest pain, unspecified; R10.9 Unspecified abdominal pain ==

== ENCOUNTER 2018-09-14 20:07 | Emergency (ER) | payer BC, MEDICARE ==
[2018-09-14 20:07] VITALS: BMI 29.8
--- NOTE | 2018-09-14 20:31 | C.PDOC ---
History Of Present Illness 62-year-old male presents to the emergency department via ambulance for public intoxication. Patient has an extensive history of alcohol and benzo abuse. Patient carries a bag of medication which includes multivitamins and thymine prescribed by various admissions. Time Seen by Provider: 09/14/18 20:28 Chief Complaint (Nursing): Substance Abuse History Per: Patient History/Exam Limitations: no limitations Onset/Duration Of Symptoms: Hrs Current Symptoms Are (Timing): Still Present Suicide/Self Injury Attempted (Context): None Modifying Factor(s): Alcohol, Other (benzo) Past Medical History Reviewed: Historical Data, Nursing Documentation, Vital Signs Vital Signs: Last Vital Signs Temp 98.5 F 09/14/18 20:13 Pulse 76 09/14/18 20:13 Resp 16 09/14/18 20:13 BP 134/86 09/14/18 20:13 Pulse Ox 96 09/14/18 20:13 Primary Care Provider: FAMILY PROVIDER,NO - Medical History PMH: Anxiety, Arthritis, CVA, Depression, Diabetes, HTN, Hypothyroidism, Pancreatitis, Seizures (etoh withdrawl) Denies: Hepatitis, HIV, Chronic Kidney Disease (Non dialysis), Sexually Transmitted Disease Surgical History: No Surg Hx - [facility] Procedures DETOXIFICATION SERVICES FOR SUBSTANCE ABUSE TREATMENT (06/30/18) EXCISION OF ASCENDING COLON, ENDO, DIAGN (05/03/18) EXCISION OF STOMACH, ENDO, DIAGN (05/03/18) GROUP DIET CONSULTANT FOR SUBSTANCE ABUSE TREATMENT, PSYCHOEDUCATION (06/30/18) GROUP DIET CONSULTANT FOR SUBSTANCE ABUSE, COGNITIVE BEHAVIORAL (06/30/18) GROUP PSYCHOTHERAPY (07/29/18) INDIV PSYCHOTHERAPY FOR SUBSTANCE ABUSE TREATMENT, SUPPORT (08/22/18) INDIV PSYCHOTHERAPY FOR SUBSTANCE ABUSE, COGNITIV BEHAVIORAL (08/22/18) INDIV PSYCHOTHERAPY FOR SUBSTANCE ABUSE, MOTIVATION ENHANCE (07/29/18) INDIV PSYCHOTHERAPY FOR SUBSTANCE ABUSE, PSYCHOEDUCATION (08/22/18) INDIVIDUAL PSYCHOTHERAPY, COGNITIVE-BEHAVIORAL (08/22/18) INDIVIDUAL PSYCHOTHERAPY, SUPPORTIVE (08/22/18) INTRODUCTION OF SERUM/TOX/VACCINE INTO MUSCLE, PERC APPROACH (04/10/17) MEASURE OF CARDIAC SAMPL & PRESSURE, L HEART, PERC APPROACH (04/10/17) MEDICATION MANAGEMENT (10/04/17) PLAIN RADIOGRAPHY OF RIGHT AND LEFT HEART USING OTH CONTRAST (04/10/17) Family History: States: No Known Family Hx - Social History Hx Alcohol Use: Yes Hx Substance Use: Yes (denies at this time) - Immunization History Hx Tetanus Toxoid Vaccination: No Hx Influenza Vaccination: No Hx Pneumococcal Vaccination: Yes Review Of Systems Except As Marked, All Systems Reviewed And Found Negative. Constitutional: Negative for: Fever, Chills Cardiovascular: Negative for: Chest Pain Respiratory: Negative for: Cough, Shortness of Breath Gastrointestinal: Negative for: Nausea, Vomiting, Abdominal Pain Neurological: Positive for: Other (intoxicated) Physical Exam - Physical Exam Appears: Non-toxic, Agitated, Other (stuperous, morbidly obese, argumentative) Skin: Normal Color, Warm, Dry Head: Atraumatic, Normacephalic Eye(s): bilateral: Normal Inspection, PERRL, EOMI Nose: Normal Oral Mucosa: Moist, Other (alcohol on breath) Neck: Normal, Supple Chest: Symmetrical, No Tenderness Cardiovascular: Rhythm Regular, No Murmur Respiratory: Normal Breath Sounds, No Rales, No Rhonchi, No Wheezing Gastrointestinal/Abdominal: Soft, No Tenderness Extremity: Normal ROM Neurological/Psych: Oriented x3, Normal Speech, Normal Cognition ED Course And Treatment O2 Sat by Pulse Oximetry: 96 (RA) Pulse Ox Interpretation: Normal Reevaluation Time: 21:47 Reassessment Condition: Improved (easily arousable) Medical Decision Making Medical Decision Making: persistent benzo and/or alcohol abuse h/o same NOT homeless- lives in hotels, and not shelters Disposition Doctor Will See Patient In The: Office Counseled Patient/Family Regarding: Studies Performed, Diagnosis - Disposition Referrals: Alcoholics Anonymous [Outside] [facility] [Outside] [facility] [Outside] [facility] [Outside] [facility] [employer] [facility] [Outside] Disposition: HOME/ ROUTINE Disposition Time: 21:48 Condition: GOOD Additional Instructions: seek counseling for alcohol/substance abuse issues. Seek Detox as appropriate- you may be pre-screened and come in for a Detox bed when available. Instructions: Alcohol Abuse and Alcoholism (DC), Drug Abuse Treatment Forms: [employer] (Belarusian) - Clinical Impression Clinical Impression: Alcohol abuse, Drug abuse - Scribe Statement The provider has reviewed the documentation as recorded by the Scribe (Marlon Alfaro) Provider Attestation: All medical record entries made by the Scribe were at my direction and pe rsonally dictated by me. I have reviewed the chart and agree that the record accurately reflects my personal performance of the history, physical exam, medical decision making, and the department course for this patient. I have also personally directed, reviewed, and agree with the discharge instructions and disposition.
[2018-09-14 22:11] VITALS: BP 128/97; PULSE 69; RESP 18; TEMP 98.1
[2018-09-14 22:14] VITALS: O2SAT 96
== END 2018-09-14 22:07 | disposition home or self-care (01) ==
LOC: C.ER 20:07
DX: F10.10 Alcohol abuse, uncomplicated (principal); F19.10 Other psychoactive substance abuse, uncomplicated; E03.9 Hypothyroidism, unspecified; E11.9 Type 2 diabetes mellitus without complications; I10 Essential (primary) hypertension; Z86.73 Personal history of transient ischemic attack (TIA), and cerebral infarction without residual deficits